=== PATIENT | male | born 1955 | race Caucasian/White ===

== ENCOUNTER 2021-03-24 12:19 | Day surgery (SDC) | payer MEDICARE, BC, SELFPAY ==
[2021-03-14 11:21] VITALS: BMI 29.2
[2021-03-17 13:14] VITALS: BMI 29.1
[2021-03-24] VITALS (8 sets, daily range): BP systolic 91–119; BP diastolic 57–85; PULSE 57–75; RESP 16–18; TEMP 36.4–36.9; O2SAT 91–95; BMI 29.1; BMI 29.9
--- NOTE | 2021-03-24 07:00 | HP_ITS ---
Intake Vital Signs 03/17/21 Height 6 ft 03/17/21 Weight: 215 lb 03/17/21 BMI 29.1 03/17/21 BP 129/82 H 03/17/21 Blood Pressure Location Rt brachial 03/17/21 Position Sitting 03/17/21 Respiration 18 03/17/21 Pulse Oximetry (%) 92 03/17/21 Oxygen Delivery Method room air Intake Visit Reasons: PORT PLACEMENT Chief Complaint: port Litigation Coordinator Required: No Is patient in pain?: No Allergies No Known Allergies Allergy (Verified 03/17/21 13:08) Medications Lisinopril [Zestril] 10 mg PO DAILY 03/13/21 [History Confirmed 03/17/21] Ampicillin Trihydrate 250 mg PO BID 03/14/21 [History Confirmed 03/17/21] PFSH Medical History Acute respiratory failure with hypoxia (Acute) Former smoker (Acute) Hemoptysis (Acute) Lung mass (Acute) Pneumonia (Acute) Shortness of breath (Acute) Hypertension (Chronic) Surgical History S/P bronchoscopy (Acute) Family History Father Alzheimers disease Mother Skin cancer Social History (Updated 03/17/21 @ 14:[address] Seng De Los Santos MD) Smoking Status: Heavy Smoker (>10/day) HPI HPI HPI: SHASHA RODRIGUEZ is a 65 M who presents to the office today for HPI HPI Surgical H&P: Yes HPI: SHASHA RODRIGUEZ is a 65 M who presents to the office today for port placement. The patient has lung cancer of the left lung and requires chemotherapy and port placement for access. ROS General General: No weight change or fatigue Cardio Cardiovascular: Yes high blood pressure; no murmur, pacemaker, heart disease, atrial fibrillation, heart attack, heart stent, palpitations, shortness of breat with exertion or chest pain Psych Psychiatric: No depression or anxiety Resp Respiratory: Yes shortness of breath, No sleep apnea, Yes cough, No COPD, No asthma, No emphysema, No wheezing Gastro Gastrointestinal: No abdominal pain, No nausea or vomiting, No diarrhea, No constipation, No blood in stool, No acid reflux, No hemorrhoids, No ulcers, No gallbladder problem, No black,tarry stools Jero Hematologic: No blood thinners Exam Const General: cooperative Orientation: alert, oriented x3 Resp Effort & Inspection: normal respiratory effort Auscultation: breath sounds absent on th left Cardio Rate: regular rate Rhythm: regular rhythm Heart Sounds: no murmurs GI Inspection: non-distended Palpation: soft, nontender Assessment & Plan Problems 1. NSCLC of left lung C34.92 2. Encounter for insertion of venous access port Z45.2 Plan I discussed right chest port placement with the patient in detail. I discussed the procedure as well as the risks including but not limited to bleeding, infection, pneumothorax, line infection or DVT. The patient understands the risks and is willing to have port placed in the operating room. Seng De Los Santos MD Pager: [facility] [address] [place] [address], [address] [place] [address] Office: Coding Level of Care Code Off vis,new,level 3 Diagnoses NSCLC of left lung C34.92 Encounter for insertion of venous access port Z45.2 I have re-examined the patient. There are no clinical changes since date of exam.
[2021-03-24] MEDS: Lactated Ringers 1,000 ML 100 ML IV (13:09)
[2021-03-24] MEDS: Cefazolin 2 GM in 0.9% Normal Saline 100 ML IV (13:30)
[2021-03-24] MEDS: Bupiv/Epi 0.25% 30 ML Vial (13:46)
--- NOTE | 2021-03-24 14:00 | RAD_ITS ---
STUDY: X-RAY CHEST REASON FOR EXAM: Male, 65 years old. Line placement -- in pacu TECHNIQUE: Single AP portable view of the chest. COMPARISON: Comparison is made with prior study dated 03/09/2021. FINDINGS: A right-sided Port-A-Cath has been placed. The tip is at the junction of the superior vena cava and right atrium. Hyper expansion of the right hemithorax. Complete collapse of the left hemithorax suggestive of a large left pleural effusion with left lung volume loss. RAD/CXR for Line Placement IMPRESSION: The tip of the right yogesh catheter is at the junction of the superior vena cava and right atrium. Complete opacification of the left hemithorax with the volume loss and hyperexpansion of the right hemithorax. Electronically Signed: Zach Lewis MD at 14:40 EDT , Service support ,
--- NOTE | 2021-03-24 14:09 | OP.PCM_ITS ---
Problem List (1) Encounter for adjustment and management of vascular access device Status: Resolved (2) NSCLC of left lung Status: Acute Report of Operation Date of Procedure: 03/24/21 Pre-Operative Diagnosis: Lung cancer need for vascular access port Post-Operative Diagnosis: Same Surgery/Procedure Performed:: Ultrasound and fluoroscopy guided right chest port placement utilizing right IJ Description of Procedure: After obtaining informed consent patient was brought back to the operating room MAC anesthesia was induced and the right chest and neck were prepped in normal sterile fashion. Ultrasound was used to evaluate both IJs and the right IJ was selected. Next, using a needle, the right IJ was accessed and a guidewire was passed on into the superior vena cava under fluoroscopy guidance. A small incision was made over the puncture site and the dilator introducer was placed over the guidewire. Next this was capped and the pocket was made for the port. 1% lidocaine with epinephrine was injected in the proposed port site. An incision was made with scalpel. Electrocautery was used to make a pocket under the skin and subcutaneous tissue. Hemostasis was obtained. Next, the catheter was tunneled up to the neck incision site and placed through the introducer. The peel-away introducer was removed and the position of the catheter was confirmed on fluoroscopy. Next, the catheter was trimmed and attached to the port with the locking device. Interrupted 2-0 Vicryl sutures were used to anchor the port to the chest wall and then the port was placed inside the pocket. The pocket was then flushed with saline and the port irrigated with saline. There was good blood return and the port flushed easily. Next, heparin was injected into the port. The skin was closed with subcutaneous interrupted 3-0 Vicryl sutures. A single 3-0 Vicryl sutures placed under the skin at the neck incision site. Steri-Strips were placed as well as op sites. Patient tolerated procedure well, was taken to PACU in stable condition. Chest x-ray will be obtained. Grafts/Implants Used: 8 [place] Power[employer] - Admit VTE Documentation VTE Mechan Device Prophylaxis: SCD's
--- NOTE | 2021-03-24 14:11 | DCINST_ITS ---
Discharge Diet: No Restrictions - Pain medication may cause nausea. You should typically eat light foods as you take your pain medication. Discharge Activity: Return to Normal Activity, May Shower - with your bandage in place in 1-2 days after surgery. DO NOT SHOWER WHEN YOUR PORT IS ACCESSED. Call your doctor if your incision/area has: Continuous Slow Oozing, Sudden Increased Bleeding, Increased Pain/ Swelling, Increased Redness Call your doctor if you observe: Fever of 101 or Higher Remove Dressing in (days):: 3 - When you remove the bandage, leave the steri- strips intact until they fall off. Allergies/Adverse Reactions: Allergies No Known Allergies Allergy (Verified 03/24/21 13:01) Medications to take at Discharge Lisinopril [Zestril] 10 mg PO DAILY 03/13/21 Acapella See Rx Instructions .ROUTE .MEDSUPPLY #1 each 03/24/21 guaifenesin 1,200 mg tablet, extended release 12 hr 1,200 mg PO Q12H #60 tablet 03/24/21 tiotropium 2.5 mcg-olodaterol 2.5 mcg/actuation mist for inhalation 2 puff IN HALATION DAILY #4 gm 03/24/21 Orders to be completed after discharge: COVID 19 AG RAPID (RN COLLECT) Time Frame: 03/24/21, Facility: [facility], Location: Laboratory Primary Care Physician: Des Che MD [Primary Care Provider] - Test Results: Test results from this visit will be discussed in further detail at your follow- up appointment, if applicable. Please Follow Up With: Seng De Los Santos MD When: Follow-up as needed. [phone]
== END 2021-03-24 15:03 | disposition home or self-care (01) ==
LOC: SDC 12:20 → AC 12:21
PROVIDERS: PCP Family Medicine; Referring Provider Surgery; Visit Provider Surgery
PROC: (CPT 36561; principal; 2021-03-24 12:50)
DX: Z45.2 Encounter for adjustment and management of vascular access device (principal); C34.92 Malignant neoplasm of unspecified part of left bronchus or lung; I10 Essential (primary) hypertension; Z79.899 Other long term (current) drug therapy; Z87.891 Personal history of nicotine dependence
CPT/HCPCS: 00532; 36561; 71045; 77001; 87426; 94667; J7120; C1788

== ENCOUNTER → 2021-06-19 07:34 | Outpatient (CLI) | payer MEDICARE, BC, SELFPAY ==
[2021-03-14 11:21] VITALS: BMI 29.2
[2021-05-17 08:32] VITALS: BMI 29.4
--- NOTE | 2021-06-19 07:40 | CT_ITS ---
STUDY: CT CHEST T ABDOMEN WITH CONTRAST REASON FOR EXAM: Male, 65 years old. POST CHEMO-LUNG CA RADIATION DOSAGE (If Supplied By Facility): CTDIvol = ( 16.02 ) mGy, DLP = ( 1351.02 ) mGycm TECHNIQUE: Transaxial imaging was performed following intravenous administration of IV 100mL Isovue-300. Multiplanar coronal and sagittal images were reformatted. Individualized dose optimization techniques were used for this CT. COMPARISON: Comparison is made with prior examination dated 03/08/2021. FINDINGS: CHEST A right-sided portacatheter is seen with the tip in the superior vena cava. Mild degree of persistent increased markings at the lung bases suggestive of a mild scarring more prominent at the left lung base with evidence of bronchiectasis with small left pleural effusion and compressive atelectasis. This has improved as compared to prior study. There are calcifications of the coronary arteries. Small residual soft tissue density in the subcarinal space suggestive of adenopathy. Small mediastinal adenopathy is also present. No significant left hilar lymphadenopathy is seen. Normal unenhanced pulmonary arteries. Mild degree of atherosclerotic calcific plaques at the level of the aortic arch. There are multi-level degenerative changes of the thoracic spine. There is no demonstrated abnormality of the visualized upper abdomen. ABDOMEN Normal liver. Normal gallbladder and extrahepatic biliary system. Normal spleen. Normal pancreas. Normal bilateral adrenal glands. Normal right kidney. Normal left kidney. Normal visualized stomach. Normal small intestine. Normal colon. The appendix is visualized and appears normal. There is scattered atherosclerotic calcification of the abdominal aorta, without a demonstrated aneurysm. Normal inferior vena cava. There is borderline retroperitoneal lymphadenopathy with enlarged nodes no greater than 10mm in the short axis diameter. Normal abdominal wall. There are diffuse degenerative changes of the visualized lumbar spine. CT/CT Chest AND Abd W/ Contrast IMPRESSION: Mild residual enlargement of the subcarinal lymph nodes. Small left pleural effusion with left basilar bronchiectasis and compressive atelectasis. Electronically Signed: Zach Lewis MD at 12:48 EDT , Service support ,
[2021-06-19] MEDS: 0.9% Saline Lock 10 ML Syringe IV (08:05)
[2021-06-19 08:25] LABS: Absolute Lymphocyte Count 0.71 X10^3/uL (0.83-4.51); Absolute Neutrophil Count 4.8 X10^3/uL (2.0-7.7); Basophil# 0.03 X10^3/uL; Basophil% 0.4 % (0-1); Eosinophil# 0.36 X10^3/uL; Eosinophils% 5.3 % (0-5); Lymphocyte # 0.71 X10^3/ul (0.83-4.51); Lymphocyte % 10.5 % (19-41); Mean Corp Hgb Conc 33.3 g/dL (32-36); Mean Corpuscular Hgb 30.3 pg (27.0-32.0); Mean Corpuscular Volume 90.9 fL (80-94); Mean Platelet Vol. 8.9 fl (6.2-12.0); Monocyte# 0.82 X10^3/uL; Monocyte% 12.1 % (0-10); NRBC Flagged by Analyzer 0 % (0-5); Neutrophil # 4.81 X10^3/uL (2.7-7.7); Neutrophil % 71.1 % (47-70); Platelet Count 255 K/mm3 (150-450); RBC Distribution Width CV 14.7 % (11.6-14.6); RBC Distribution Width SD 49.5 fl (35.1-43.9); Red Blood Count 3.96 M/mm3 (4.6-6.2); White Blood Count 6.8 K/mm3 (4.4-11.0)
[2021-06-19 08:42] LABS: AST(SGOT) 17 U/L (15-37); Alanine Aminotransfer ALT/SGPT 24 U/L (16-61); Albumin, Serum 3.1 g/dL (3.2-5.0); Alkaline Phosphatase 74 U/L (45-117); Anion Gap 6 (5-15); BUN 12 mg/dL (7-18); BUN/Creat Ratio 16.2 RATIO (10-20); Calcium,Total 8.3 mg/dL (8.5-10.1); Chloride 104 mmol/L (98-107); Creatinine, Serum 0.74 mg/dL (0.70-1.30); EST Glomerular Filtration Rate 113 mL/min (>60); Est Glom Filt Rate - Afr Amer 136 mL/min (>60); Globulin 3.2 g/dL (2.2-4.2); Glucose 92 mg/dL (74-106); LDH 176 U/L (87-241); Potassium 3.8 mmol/L (3.5-5.1); Protein, Total 6.3 g/dL (6.4-8.2); Sodium Level 138 mmol/L (136-145)
== END ==
PROVIDERS: PCP Family Medicine; Referring Provider Internal Medicine Medical Oncology; Visit Provider Internal Medicine Medical Oncology
DX: C34.02 Malignant neoplasm of left main bronchus (principal); J91.0 Malignant pleural effusion; J47.9 Bronchiectasis, uncomplicated; I10 Essential (primary) hypertension
CPT/HCPCS: 71260; 74160; 80053; 83615; 85025; Q9967; A4216

== ENCOUNTER → 2021-06-20 06:45 | Outpatient (CLI) | payer MEDICARE, BC, SELFPAY ==
[2021-03-14 11:21] VITALS: BMI 29.2
[2021-05-17 08:32] VITALS: BMI 29.4
--- NOTE | 2021-06-20 09:39 | PFTCOMP_ITS ---
COMPLETE PULMONARY FUNCTION TEST INTERPRETATION Brief HPI: Patient is a 65 year old male, currently under the care of myself, who presents to [facility] for complete pulmonary function tests secondary to diagnosis of lung mass. Respiratory therapist reports good effort and reproducible results. Interpretation: Forced expiration spirometry shows no large airways obstructive ventilatory defect with an FEV1 of 80% predicted. There is no significant bronchodilator response by strict ATS criteria. Spirograms are of good quality and plateau slowly, indicating slowly emptying areas of the lungs. The respiratory flow volume loop shows flattening of the expiratory limb suggestive of a variable intrathoracic airway obstruction. Lung volumes by body plethysmography show a normal total lung capacity at 7.03 L, 103% predicted. All other lung volumes are within normal limits. Diffusion capacity by carbon monoxide is decreased at 67% predicted. The airway resistance is increased. No previous pulmonary function tests were available for review. Impression: Isolated reduction in diffusing capacity with flattening of the expiratory limb suggestive of a variable intrathoracic airway obstruction.
== END ==
PROVIDERS: PCP Family Medicine; Referring Provider Internal Medicine Critical Care Medicine; Visit Provider Internal Medicine Critical Care Medicine
DX: R91.8 Other nonspecific abnormal finding of lung field (principal)
CPT/HCPCS: 94060; 94726; 94729

== ENCOUNTER 2021-09-18 15:55 | Emergency (ER) | payer MEDICARE, BC, SELFPAY ==
[2021-03-14 11:21] VITALS: BMI 29.2
[2021-09-18] VITALS (7 sets, daily range): BP systolic 108–130; BP diastolic 79–94; PULSE 99–104; RESP 20–26; TEMP 37–37.6; O2SAT 88–97; BMI 29.5
--- NOTE | 2021-09-18 16:21 | CT_ITS ---
STUDY: CTA CHEST REASON FOR EXAM: Male, 65 years old. Hypoxia RADIATION DOSAGE (If Supplied By Facility): CTDIvol = ( 13.03 ) mGy, DLP = ( 481.70 ) mGycm TECHNIQUE: The examination was performed with the intravenous administration of IV 100mL Isovue-370. Post-processing of the angiographic images was performed, with multiplanar reformation and 3D reconstruction. Individualized dose optimization techniques were used for this CT. COMPARISON: None. FINDINGS: Thyroid gland is unremarkable. There is limited enhancement of the main pulmonary artery and right and left pulmonary arteries. There is limited enhancement of the bilateral peripheral pulmonary arteries. There is no demonstrated pulmonary embolism. Normal thoracic aorta and visualized great vessels. There is no demonstrated aortic dissection. Normal heart and pericardium. Scattered subcentimeter axillary and mediastinal lymph nodes. There is peribronchial thickening. The lungs are well expanded. Patchy interstitial and airspace opacifications in both lung [place] without effusions. This pattern of opacification is suspicious for and consistent with Covid pneumonia. Normal pleura. Normal chest wall structures. There are degenerative changes of thoracic spine. Normal visualized upper abdomen. CT/CTA Chest W/WO Contrast IMPRESSION: No demonstrated PE, or thoracic aortic aneurysm or dissection. However, the contrast bolus within the pulmonary arteries is not optimal. Patchy interstitial and airspace opacifications probably in the periphery of both lung [place] without effusions. This pattern of opacification is suspicious for Covid pneumonia. No suspicious adenopathy Degenerative bony changes Electronically Signed: Kalen Hernandez MD at 18:32 EDT , Service support ,
--- NOTE | 2021-09-18 16:23 | EKG12_ITS ---
Test Reason : SOB Blood Pressure : / mmHG Vent. Rate : 094 BPM Atrial Rate : 094 BPM P-R Int : 170 ms QRS Dur : 078 ms QT Int : 346 ms P-R-T Axes : 045 -14 023 degrees QTc Int : 432 ms Normal sinus rhythm Normal ECG Confirmed by KIMMY JUNE MD ([id number]), medical editor BRYON ORTIZ ([id number]) on 09/20/2021 9:29:11 AM Referred By: IAN Confirmed By:KIMMY JUNE MD
--- NOTE | 2021-09-18 16:26 | NURSING ---
NO OLD EKGS
--- NOTE | 2021-09-18 16:53 | CPS ---
Gave 2 puffs
[2021-09-18 16:56] LABS: Absolute Lymphocyte Count 0.35 X10^3/uL (0.83-4.51); Absolute Neutrophil Count 4.4 X10^3/uL (2.0-7.7); Basophil# 0.01 X10^3/uL; Basophil% 0.2 % (0-1); Hematocrit 44.3 % (40-54); Hemoglobin 15.3 g/dL (13.0-16.5); Lymphocyte # 0.35 X10^3/ul (0.83-4.51); Mean Corp Hgb Conc 34.5 g/dL (32-36); Mean Corpuscular Hgb 29.1 pg (27.0-32.0); Mean Corpuscular Volume 84.2 fL (80-94); Monocyte# 0.27 X10^3/uL; Monocyte% 5.4 % (0-10); NRBC Flagged by Analyzer 0 % (0-5); Neutrophil # 4.35 X10^3/uL (2.7-7.7); Neutrophil % 86.8 % (47-70); POSITIVE DIFFERENTIAL YES; Platelet Count 160 K/mm3 (150-450); RBC Distribution Width CV 13.8 % (11.6-14.6); RBC Distribution Width SD 42.6 fl (35.1-43.9); Red Blood Count 5.26 M/mm3 (4.6-6.2)
[2021-09-18] MEDS: dexAMETHasone 10 MG/ML Vial IV (16:57)
[2021-09-18] MEDS: 0.9% Normal Saline 1,000 ML 999 ML IV (16:57)
[2021-09-18 16:58] LABS: Differential Indicated SCAN CRITERIA MET
[2021-09-18 17:04] LABS: International Normalized Ratio 1.1; Prothrombin Time (Protime)PT. 13.2 SECONDS (11.7-14.9)
[2021-09-18 17:05] LABS: Partial Thromboplast Time 39.9 Seconds (24.1-36.2)
[2021-09-18 17:25] LABS: Anion Gap 8 (5-15); BUN 14 mg/dL (7-18); BUN/Creat Ratio 14.2 RATIO (10-20); Calcium,Total 8.7 mg/dL (8.5-10.1); Chloride 98 mmol/L (98-107); Creatinine, Serum 0.99 mg/dL (0.70-1.30); EST Glomerular Filtration Rate 81 mL/min (>60); Est Glom Filt Rate - Afr Amer 98 mL/min (>60); Estimated Creatinine Clearance 79.23 ml/min; Glucose 120 mg/dL (74-106); Magnesium 1.9 mg/dL (1.6-2.6); Potassium 4.2 mmol/L (3.5-5.1); Sodium Level 131 mmol/L (136-145); Troponin-I HS 12 pg/mL (3.0-78.0)
[2021-09-18 17:27] LABS: Differential Comment SCANNED
--- NOTE | 2021-09-18 17:28 | EDS_ITS ---
HPI History of Present Illness Chief Complaint: Shortness of Breath Narrative Narrative: Patient is a 65-year-old male with past medical history of lung cancer. He states despite this he has no need for supplemental oxygen. He reports over the past 5 to 7 days he has been having congestion cough and fatigue. He states that he put a pulse ox on at home today and it was reading in the mid 80s and with this abnormal value as well as his feeling of shortness of breath comes to the hospital for evaluation. Patient does state he is vaccinated against Covid and he denies any known sick contacts [facility] Medical History Acute respiratory failure with hypoxia Contact with and (suspected) exposure to other viral communicable diseases Dyspnea Encounter for education Former smoker Hemoptysis Hypertension Lung mass NSCLC of left lung Odynophagia Pneumonia Shortness of breath Home Medications lisinopril 10 mg PO DAILY 03/13/21 [History Last Taken 03/23/21 19:00] Acapella #1 each 03/24/21 [Rx Last Taken Unknown] guaifenesin 1,200 mg tablet, extended release 12 hr 1,200 mg PO Q12H #60 tablet 03/24/21 [Rx Last Taken Unknown] tiotropium 2.5 mcg-olodaterol 2.5 mcg/actuation mist for inhalation 2 inh INHALATION DAILY #4 g 06/22/21 [Rx Last Taken Unknown] albuterol sulfate 90 mcg/actuation aerosol inhaler 1 - 2 puff INHALATION Q6H PRN #8.5 g 09/18/21 [Rx Last Taken Unknown] albuterol sulfate [Ventolin HFA] 1 - 2 puff INHALATION Q4H PRN PRN #1 inh 09/18/21 [Rx Last Taken Unknown] azithromycin 250 mg tablet See Rx Instructions PO .COMPLEX #6 tab 09/18/21 [Rx Last Taken Unknown] dexamethasone 6 mg tablet 6 mg PO DAILY #10 tab 09/18/21 [Rx Last Taken Unknown] dexamethasone [Decadron] 6 mg PO DAILY #10 tab 09/18/21 [Rx Last Taken Unknown] Allergy/AdvReac Type Severity Reaction Status Date / Time No Known Allergies Allergy Verified 09/18/21 16:00 Family History Father Alzheimers disease Mother Skin cancer Surgical History S/P bronchoscopy Social History Smoking Status: Former smoker pack-years: 25 ROS ROS ED Constitutional Constitutional ED: Reports chills, fever(s) and subjective ENT ENT ED: Reports rhinorrhea; Denies sore throat Cardiovascular Cardiovascular: Denies chest pain Respiratory/Chest Respiratory/Chest: Reports cough and dyspnea Gastrointestinal Gastrointestinal: Reports diarrhea and nausea; Denies abdominal pain or vomiting Genitourinary Genitourinary ED: Denies dysuria Musculoskeletal Musculoskeletal: Reports myalgias Integumentary Denies rash Neurologic Neurologic: Denies headache(s) Hematologic/Lymphatic Hematologic/Lymphatic: Denies easy bleeding or easy bruising EXAM Physical Exam Const Vital Signs: 09/18/21 15:57 09/18/21 16:11 09/18/21 16:59 Temperature 98.6 F Temperature Source Temporal Pulse Rate 104 H 102 H Respiratory Rate 22 H 23 H Respiratory Effort Short of Breath Respiratory Depth Shallow Respiratory Pattern Tachypnea Blood Pressure 130/86 H 130/79 H Blood Pressure Mean 100 96 Pulse Ox 97 94 Pulse Ox [AMBULATING on Room Air] Pulse Ox [AMBULATING with Oxygen #1] Pulse Ox [At REST on Room Air] Pulse Ox [At REST with Oxygen] Oxygen Delivery Method Room Air Room Air Room Air Oxygen Flow Rate (L/min) [AMBULATING on Room Air] Oxygen Flow Rate (L/min) [AMBULATING with Oxygen #1] Oxygen Flow Rate (L/min) [At REST on Room Air] Oxygen Flow Rate (L/min) [At REST with Oxygen] 09/18/21 18:16 09/18/21 18:24 09/18/21 19:03 Temperature 99.6 F H Temperature Source Temporal Pulse Rate 103 H 103 H Respiratory Rate 26 H 20 H Respiratory Effort Respiratory Depth Respiratory Pattern Blood Pressure 108/94 H 108/94 H Blood Pressure Mean 98 98 Pulse Ox 92 93 Pulse Ox [AMBULATING on Room Air] 88 Pulse Ox [AMBULATING with Oxygen #1] 92 Pulse Ox [At REST on Room Air] 91 Pulse Ox [At REST with Oxygen] 94 Oxygen Delivery Method Room Air Room Air Oxygen Flow Rate (L/min) [AMBULATING on Room Air] 0 Oxygen Flow Rate (L/min) [AMBULATING with Oxygen #1] 2 Oxygen Flow Rate (L/min) [At REST on Room Air] 0 Oxygen Flow Rate (L/min) [At REST with Oxygen] 2 Positive well nourished and well developed General Appearance ED: well developed HEENT Reports dry mucous membranes HEENT Narrative: No tongue or lip swelling no oral lesions no airway edema or compromise Mouth ED: Yes dry mucous membranes Mouth: dry mucous membranes Eyes PERRL and EOMs intact bilaterally Neck supple and no JVD Neck Narrative: Positive anterior cervical lymphadenopathy noted Chest Wall palpation of chest normal Resp Resp Narrative: Patient is in mild respiratory distress with tachypnea. Breath sounds are diminished throughout with faint wheeze and rhonchi in the bilateral bases Cardio regular rhythm Rate: other Other Details: Slightly tachycardic rate with regular rhythm GI non-tender and non-distended GI Narrative: No voluntary guarding or rigidity no pulsatile mass Auscultation: normoactive bowel sounds Palpation: soft Extremity normal to inspection Extremity Narrative: No asymmetric edema no pitting edema negative Homans' sign bilaterally Neuro oriented x3 and CN's II-XII intact bilaterally Sensorium / Orientation: alert Motor Exam: strength 5/5 throughout Psych mental status grossly normal Skin no rashes or lesions noted MDM MDM MDM Narrative Medical decision making narrative: Patient presented to the ER just slightly tachycardic with a room air pulse ox of 91 to 93% and mild increased work of breathing. His exam is concerning for Covid and Covid pneumonia so basic work- up with CT scan was ordered. Labs reveal no clinically significant findings other than his rapid Covid test was positive. His CT revealed no PE but did show changes consistent with Covid pneumonia. On reevaluation after albuterol inhaler and Decadron patient reports feeling better and his pulse ox is 91 to 93% on room air. He was ambulated and pulse ox dropped to 89%. At this time he is not qualifying for supplemental oxygen but he does qualify for monoclonal antibody. Also as he is not requiring supplemental oxygen and remains in no acute distress he can be discharged and be prescribed an albuterol inhaler Decadron and the monoclonal antibodies to help control his symptoms Lab Data Attestation: I reviewed the patient's lab results. Labs: Laboratory Results - last 24 hr 09/18/21 09/18/21 09/18/21 16:40 16:40 16:40 WBC 5.0 RBC 5.26 Hgb 15.3 Hct 44.3 MCV 84.2 MCH 29.1 MCHC 34.5 RDW Std Deviation 42.6 RDW Coeff of Samantha 13.8 Plt Count 160 MPV 9.0 Immature Gran % (Auto) 0.600 Neut % (Auto) 86.8 H Lymph % (Auto) 7.0 L Chambers % (Auto) 5.4 Eos % (Auto) 0.0 Baso % (Auto) 0.2 Absolute Neuts (auto) 4.4 Absolute Lymphs (auto) 0.35 L Nucleated RBC % 0 Differential Comment SCANNED PT 13.2 INR 1.1 APTT 39.9 H Sodium 131 L Potassium 4.2 Chloride 98 Carbon Dioxide 25.0 Anion Gap 8 BUN 14 Creatinine 0.99 Estim Creat Clear Calc 79.23 Est GFR (MDRD) Af Amer 98 Est GFR (MDRD) Non-Af 81 BUN/Creatinine Ratio 14.2 Glucose 120 H Calcium 8.7 Magnesium 1.9 Troponin I High Sens 12 B-Natriuretic Peptide 09/18/21 16:40 WBC RBC Hgb Hct MCV MCH MCHC RDW Std Deviation RDW Coeff of Samantha Plt Count MPV Immature Gran % (Auto) Neut % (Auto) Lymph % (Auto) Chambers % (Auto) Eos % (Auto) Baso % (Auto) Absolute Neuts (auto) Absolute Lymphs (auto) Nucleated RBC % Differential Comment PT INR APTT Sodium Potassium Chloride Carbon Dioxide Anion Gap BUN Creatinine Estim Creat Clear Calc Est GFR (MDRD) Af Amer Est GFR (MDRD) Non-Af BUN/Creatinine Ratio Glucose Calcium Magnesium Troponin I High Sens B-Natriuretic Peptide 17.0 Radiography Diagnostic Testing: Clinical Impression(s) from Imaging Studies Chest CTA 09/18/21 16:21 IMPRESSION: No demonstrated PE, or thoracic aortic aneurysm or dissection. However, the contrast bolus within the pulmonary arteries is not optimal. Patchy interstitial and airspace opacifications probably in the periphery of both lung [place] without effusions. This pattern of opacification is suspicious for Covid pneumonia. No suspicious adenopathy Degenerative bony changes Electronically Signed: Kalen Hernandez MD at 18:32 EDT , Service support , Discharge Plan Triage Chief Complaint: Shortness of Breath ED Provider: Martinez Baltazar Dx/Rx/DC Orders Clinical Impression: Pneumonia due to 2019 novel coronavirus Instructions: Coronavirus Disease 2019 (COVID-19): Caring for Yourself or Others Prescriptions: New dexamethasone [Decadron] 6 mg tablet 6 mg PO DAILY Qty: 10 RF: 0 albuterol sulfate [Ventolin HFA] 90 mcg/actuation HFA aerosol inhaler 1 - 2 puff inhalation Q4H PRN PRN (Reason: Wheezing) Qty: 1 RF: 0 No Action Mucinex 1,200 mg tablet extended release 12hr 1,200 mg PO Q12H Qty: 60 RF: 11 (DME) Acapella See Rx Instructions .Route .MEDSUPPLY Qty: 1 RF: 0 Stiolto Respimat 2.5-2.5 mcg/actuation mist 2 inh INHALATION DAILY Qty: 4 RF: 3 azithromycin 250 mg tablet See Rx Instructions PO .COMPLEX Qty: 6 RF: 0 dexamethasone [Decadron] 6 mg tablet 6 mg PO DAILY Qty: 10 RF: 0 albuterol sulfate [ProAir HFA] 90 mcg/actuation HFA aerosol inhaler 1 - 2 puff inhalation Q6H PRN (Reason: shortness of breath or wheezing) Qty: 8.5 RF: 1 lisinopril 20 MG tablet 10 mg PO DAILY RF: 0 Other Ambulatory Orders: COVID Outpatient Monoclonal Antibody Referral (Routine) Timeframe: 1 Day Facility: [facility] - Location: [facility] Ordered By: Dr. Martinez Baltazar Primary Care Provider: Dse Che Referrals: Des Che MD [Primary Care Provider] - Activity Restrictions/Additional Instructions: Please return to the hospital as directed for your monoclonal antibody infusion Disposition Disposition: Home, Self Care
== END 2021-09-18 20:38 | disposition home or self-care (01) ==
PROVIDERS: Emergency Provider Emergency Medicine; PCP Family Medicine
DX: U07.1 COVID-19 (principal); J12.82 Pneumonia due to coronavirus disease 2019; I10 Essential (primary) hypertension; Z87.891 Personal history of nicotine dependence; Z79.899 Other long term (current) drug therapy
CPT/HCPCS: 71275; 80048; 83735; 83880; 84484; 85025; 85610; 85730; 87426; 87635; 93005; 94640; 96361; 96374; 99282; J7030; Q9967; U0005; A4216; U0003

== ENCOUNTER → 2021-09-18 | Outpatient (CLI) | payer MEDICARE, BC, SELFPAY ==
[2021-03-14 11:21] VITALS: BMI 29.2
== END | disposition home or self-care (01) ==
LOC: LABSPEC 12:58
PROVIDERS: PCP Family Medicine; Referring Provider Nurse Practitioner Family; Visit Provider Nurse Practitioner Family
DX: U07.1 COVID-19 (principal)
CPT/HCPCS: 87635; U0005; U0003

== ENCOUNTER 2021-09-19 15:56 | Outpatient (CLI) | payer MEDICARE, BC, SELFPAY ==
[2021-03-14 11:21] VITALS: BMI 29.2
[2021-09-19 16:15] VITALS: BP 126/63; PULSE 96; RESP 21; TEMP 37.1; O2SAT 95; BMI 29.5
[2021-09-19] MEDS: 0.9% Saline Lock 10 ML Syringe IV (16:21)
[2021-09-19 16:59] VITALS: BP 124/76; PULSE 91; RESP 16; TEMP 37.4; O2SAT 98
[2021-09-19 17:50] VITALS: BP 108/61; PULSE 85; RESP 16; TEMP 37.2; O2SAT 100
== END 2021-09-19 18:08 | disposition home or self-care (01) ==
LOC: MS3OUT 15:56 → MS3 15:57
PROVIDERS: PCP Family Medicine; Referring Provider Nurse Practitioner Adult Health; Visit Provider Nurse Practitioner Adult Health
DX: U07.1 COVID-19 (principal)
CPT/HCPCS: J7050; M0243; A4216; Q0244

== ENCOUNTER 2021-10-30 09:40 | Emergency (ER) | payer MEDICARE, BC, SELFPAY ==
[2021-03-14 11:21] VITALS: BMI 29.2
[2021-10-30 09:41] VITALS: BP 147/83; PULSE 83; RESP 17; TEMP 36.4; O2SAT 97; BMI 30.7
--- NOTE | 2021-10-30 10:22 | CT_ITS ---
EXAM: CT CERVICAL SPINE WITHOUT INTRAVENOUS CONTRAST CLINICAL INDICATION: neck pain TECHNIQUE: Helically acquired images were obtained of the cervical spine without intravenous contrast. 2D reformatted images were reviewed. This CT exam was performed using one or more of the following dose reduction techniques: automated exposure control, adjustment of the mA and/or kV according to patient size, and/or use of iterative reconstruction technique. This report was created using [employer] report generation technology. COMPARISON: None. FINDINGS: VERTEBRAE: Anterior spondylosis at multiple cervical levels. No cervical spine fracture or destructive bony process. No traumatic subluxation. Normal craniocervical junction and cervicothoracic junction. 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 Superimposed canal narrowing due to posterior disc osteophyte complexes at C5-C6 and C6-C7. Right C5-C6 and left C6-C7 foraminal narrowing due to uncovertebral hypertrophy. SOFT TISSUES: Unremarkable. No prevertebral soft tissue swelling. VASCULATURE: Atherosclerosis of the carotid arteries. LYMPH NODES: Unremarkable. No cervical adenopathy. LUNG APICES: Interstitial thickening and groundglass opacities of the bilateral upper lobes could represent fluid overload. CT/Spine Cervical without Contras IMPRESSION: 1. No cervical spine fracture or traumatic subluxation. 2. Interstitial thickening and groundglass opacities of the bilateral upper lobes could represent fluid overload. Recommend correlating with chest x-ray. 3. Degenerative changes, as above. Electronically Signed: Dank Smith MD (Brooks) at 12:49 EST , Service support ,
--- NOTE | 2021-10-30 10:22 | CT_ITS ---
STUDY: CT BRAIN WITH AND WITHOUT CONTRAST REASON FOR EXAM: Male, 66 years old. headache RADIATION DOSAGE (If Supplied By Facility): CTDIvol = ( 38.11 ) mGy, DLP = ( ) mGycm TECHNIQUE: Transaxial CT imaging of the brain was performed pre and post contrast administration. The examination was performed with intravenous administration of 50 CC ISOVUE 300. Individualized dose optimization techniques were used for this CT. COMPARISON: None. FINDINGS: Normal soft tissue structures. Normal calvarium. Normal size ventricles and extra-axial spaces for the patient''s age. Normal white matter tracts of the cerebral hemispheres. Normal basal ganglia and thalami. Normal brainstem. Normal cerebellum. There is no intracranial hemorrhage. There are no findings of an acute ischemic infarction. No abnormal contrast enhancement. Normal visualized paranasal sinuses. CT/Brain/Head W/WO Contrast IMPRESSION: No acute intracranial hemorrhage or mass effect. Electronically Signed: Dank Smith MD (Brooks) at 12:47 EST , Service support ,
--- NOTE | 2021-10-30 10:26 | EX.ED.DYSGE1 ---
HPI History of Present Illness Chief Complaint: Other, Pain/Inj Informant: patient Onset/Context/Timing Onset: Weeks Current Severity: Moderate Maximum Severity: Moderate Narrative Narrative: Patient presents with 3 weeks of bilateral ear pain, worse on the right. Patient states 6 weeks ago he had Covid. Symptoms resolved after 2 weeks. 3 weeks ago he developed ear pain and was seen by his primary care physician. His right ear was irrigated and was told to try Flonase. A week later he went [facility] the [facility] and was diagnosed with an ear infection and placed on amoxicillin. 1 week ago he saw his oncologist who referred him to ENT. He was seen by ENT that afternoon. There is no evidence of ear infection. Oncology still placed him on an antibiotic. Patient presents with continued bilateral ear pain. He states he is taking Tylenol every 4 hours to help control pain. [facility] Medical History Acute respiratory failure with hypoxia Contact with and (suspected) exposure to other viral communicable diseases Dyspnea Ear pain, right Encounter for education Former smoker Hemoptysis Hypertension Lung mass NSCLC of left lung Odynophagia Pneumonia Shortness of breath Home Medications lisinopril 10 mg PO DAILY 03/13/21 [History Last Taken 03/23/21 19:00] Acapella #1 each 03/24/21 [Rx Last Taken Unknown] albuterol sulfate 90 mcg/actuation aerosol inhaler 1 - 2 puff INHALATION Q6H PRN #8.5 g 09/18/21 [Rx Last Taken Unknown] tiotropium 2.5 mcg-olodaterol 2.5 mcg/actuation mist for inhalation 2 inh INHALATION DAILY #4 g 10/19/21 [Rx Last Taken Unknown] cefdinir 300 mg capsule 300 mg PO Q12H #14 cap 10/24/21 [Rx Last Taken Unknown] cyclobenzaprine 10 mg PO TID PRN #10 tab 10/30/21 [Rx Last Taken Unknown] fluticasone propionate 2 spray INTRANASAL DAILY 10/30/21 [History Last Taken Unknown] lidocaine [Lidoderm] 1 patch TOPICAL DAILY #6 ea 10/30/21 [Rx Last Taken Unknown] naproxen [Naprosyn] 500 mg PO BID PRN #20 tab 10/30/21 [Rx Last Taken Unknown] oxycodone 5 mg PO Q6H PRN 3 Days #14 cap 10/30/21 [Rx Last Taken Unknown] Allergy/AdvReac Type Severity Reaction Status Date / Time No Known Allergies Allergy Verified 10/30/21 09:43 Family History Father Alzheimers disease Mother Skin cancer Surgical History S/P bronchoscopy Social History Smoking Status: Former smoker pack-years: 25 ROS ROS ED Constitutional Constitutional ED: Denies chills or fever(s) Eyes Eyes: Denies change in vision ENT ENT ED: Reports ear pain bilateral; Denies sore throat Cardiovascular Cardiovascular: Denies chest pain Respiratory/Chest Respiratory/Chest: Denies cough or dyspnea Gastrointestinal Gastrointestinal: Denies abdominal pain, diarrhea, nausea or vomiting Genitourinary Genitourinary ED: Denies dysuria Musculoskeletal Musculoskeletal: Denies back pain Integumentary Denies rash Neurologic Neurologic: Denies headache(s) or weakness Allergic/Immunologic Allergic/Immunologic ED: Denies urticaria EXAM Physical Exam Const Vital Signs: 10/30/21 09:41 Temperature 97.5 F L Temperature Source Temporal Pulse Rate 83 Respiratory Rate 17 Blood Pressure 147/83 H Blood Pressure Mean 104 Pulse Ox 97 Oxygen Delivery Method Room Air Positive well nourished and well developed General Appearance ED: well developed HEENT Reports TM's clear Tympanic Membrane ED: Yes TM's clear Eyes PERRL and EOMs intact bilaterally Neck no lymphadenopathy and supple Chest Wall inspection of chest normal and palpation of chest normal Resp normal respiratory effort and clear to auscultation bilaterally Cardio regular rate and regular rhythm Extremity normal to inspection Neuro oriented x3 Sensorium / Orientation: alert Psych mental status grossly normal Skin no rashes or lesions noted MDM MDM MDM Narrative Medical decision making narrative: Lab work obtained. CT head with contrast obtained. CT C-spine ordered. Lab Data Attestation: I reviewed the patient's lab results. Labs: Laboratory Results - last 24 hr 10/30/21 10/30/21 11:37 11:37 WBC 4.7 RBC 4.69 Hgb 14.2 Hct 41.1 MCV 87.6 MCH 30.3 MCHC 34.5 RDW Std Deviation 46.9 H RDW Coeff of Samantha 14.7 H Plt Count 257 MPV 9.1 Immature Gran % (Auto) 0.600 Neut % (Auto) 64.5 Lymph % (Auto) 17.6 L [place] % (Auto) 15.0 H Eos % (Auto) 1.9 Baso % (Auto) 0.4 Absolute Neuts (auto) 3.0 Absolute Lymphs (auto) 0.83 Nucleated RBC % 0 Sodium 139 Potassium 4.0 Chloride 108 H Carbon Dioxide 23.0 Anion Gap 8 BUN 19 H Creatinine 0.80 Estim Creat Clear Calc 96.74 Est GFR (MDRD) Af Amer 125 Est GFR (MDRD) Non-Af 103 BUN/Creatinine Ratio 23.9 H Glucose 95 Calcium 9.3 Radiography Diagnostic Testing: Clinical Impression(s) from Imaging Studies Brain CT 10/30/21 10:22 IMPRESSION: No acute intracranial hemorrhage or mass effect. Electronically Signed: Dank Smith MD (Brooks) at 12:47 EST , Service support , Cervical Spine CT 10/30/21 10:22 IMPRESSION: 1. No cervical spine fracture or traumatic subluxation. 2. Interstitial thickening and groundglass opacities of the bilateral upper lobes could represent fluid overload. Recommend correlating with chest x-ray. 3. Degenerative changes, as above. Electronically Signed: Dank Smith MD (Brooks) at 12:49 EST , Service support , Treatment and Re-Evaluation Comments:: Lab work is unremarkable. CT scans reveal no obvious cause of the patient's current symptoms. Because he was sent in by oncology I did speak with Dr. Solorio. We will treat patient symptomatically and have him follow-up. If not improving he may require MRI. Discharge Plan Triage Chief Complaint: Other, Pain/Inj ED Provider: Sara Rose Dx/Rx/DC Orders Clinical Impression: Muscle spasm, Otalgia Instructions: ED Earache Without Infection (Adult), ED Neck Spasm, No Trauma Prescriptions: New naproxen [Naprosyn] 500 mg tablet 500 mg PO BID PRN (Reason: pain) Qty: 20 RF: 0 oxycodone 5 mg capsule 5 mg PO Q6H PRN (Reason: pain) 3 Days Qty: 14 RF: 0 cyclobenzaprine 10 mg tablet 10 mg PO TID PRN (Reason: muscle spasm) Qty: 10 RF: 0 lidocaine [Lidoderm] 5 % adhesive patch,medicated 1 patch topical DAILY Qty: 6 RF: 0 No Action (DME) Acapella See Rx Instructions .Route .MEDSUPPLY Qty: 1 RF: 0 Stiolto Respimat 2.5-2.5 mcg/actuation mist 2 inh INHALATION DAILY Qty: 4 RF: 3 albuterol sulfate [ProAir HFA] 90 mcg/actuation HFA aerosol inhaler 1 - 2 puff inhalation Q6H PRN (Reason: shortness of breath or wheezing) Qty: 8.5 RF: 1 cefdinir 300 mg capsule 300 mg PO Q12H Qty: 14 RF: 0 lisinopril 20 MG tablet 10 mg PO DAILY RF: 0 fluticasone propionate 50 mcg/actuation spray,suspension 2 spray INTRANASAL DAILY RF: 0 Primary Care Provider: Des Che Referrals: Prudencio Sandoval MD [NON-STAFF] - 1 Week Des Che MD [Primary Care Provider] - Disposition Disposition: Home, Self Care
[2021-10-30 11:49] LABS: Absolute Lymphocyte Count 0.83 X10^3/uL (0.83-4.51); Basophil# 0.02 X10^3/uL; Basophil% 0.4 % (0-1); Eosinophil# 0.09 X10^3/uL; Eosinophils% 1.9 % (0-5); Hematocrit 41.1 % (40-54); Hemoglobin 14.2 g/dL (13.0-16.5); Lymphocyte # 0.83 X10^3/ul (0.83-4.51); Lymphocyte % 17.6 % (19-41); Mean Corp Hgb Conc 34.5 g/dL (32-36); Mean Corpuscular Hgb 30.3 pg (27.0-32.0); Mean Corpuscular Volume 87.6 fL (80-94); Mean Platelet Vol. 9.1 fl (6.2-12.0); Monocyte# 0.71 X10^3/uL; NRBC Flagged by Analyzer 0 % (0-5); Neutrophil # 3.04 X10^3/uL (2.7-7.7); Neutrophil % 64.5 % (47-70); Platelet Count 257 K/mm3 (150-450); RBC Distribution Width CV 14.7 % (11.6-14.6); RBC Distribution Width SD 46.9 fl (35.1-43.9); Red Blood Count 4.69 M/mm3 (4.6-6.2); White Blood Count 4.7 K/mm3 (4.4-11.0)
[2021-10-30 12:05] LABS: Anion Gap 8 (5-15); BUN 19 mg/dL (7-18); BUN/Creat Ratio 23.9 RATIO (10-20); Calcium,Total 9.3 mg/dL (8.5-10.1); Chloride 108 mmol/L (98-107); EST Glomerular Filtration Rate 103 mL/min (>60); Est Glom Filt Rate - Afr Amer 125 mL/min (>60); Estimated Creatinine Clearance 96.74 ml/min; Glucose 95 mg/dL (74-106); Sodium Level 139 mmol/L (136-145)
[2021-10-30] MEDS: Naproxen 500 MG Tablet PO (14:32)
[2021-10-30] MEDS: Lidocaine 5% Patch 1 PATCH TOPICAL (14:32)
[2021-10-30] MEDS: cycloBENZAPRine HCl 10 MG Tablet PO (14:32)
[2021-10-30 14:38] VITALS: BP 148/100; PULSE 78; RESP 16; O2SAT 96
== END 2021-10-30 14:39 | disposition home or self-care (01) ==
PROVIDERS: Emergency Provider Emergency Medicine; PCP Family Medicine
DX: M62.838 Other muscle spasm (principal); H92.03 Otalgia, bilateral; I10 Essential (primary) hypertension; Z79.899 Other long term (current) drug therapy; Z87.891 Personal history of nicotine dependence
CPT/HCPCS: 70470; 72125; 80048; 85025; 99285; Q9967; A4216

== ENCOUNTER 2021-11-13 13:30 | Emergency (ER) | payer MEDICARE, BC, SELFPAY ==
[2021-03-14 11:21] VITALS: BMI 29.2
[2021-11-13 13:32] VITALS: BP 126/101; PULSE 92; RESP 18; TEMP 36.3; O2SAT 94; BMI 30.7
--- NOTE | 2021-11-13 14:02 | EKG12_ITS ---
Test Reason : NUMBNESS Blood Pressure : / mmHG Vent. Rate : 080 BPM Atrial Rate : 080 BPM P-R Int : 182 ms QRS Dur : 078 ms QT Int : 376 ms P-R-T Axes : 044 -12 027 degrees QTc Int : 433 ms Normal sinus rhythm Normal ECG Confirmed by PATRIA PEREIRA, FRANCESCA ([id number]), editorial manager BRYON ORTIZ ([id number]) on 11/15/2021 12:10:38 PM Referred By: MERCED Confirmed By:FRANCESCA ESPAÑA MD
[2021-11-13 14:27] LABS: Absolute Lymphocyte Count 1.11 X10^3/uL (0.83-4.51); Absolute Neutrophil Count 5.1 X10^3/uL (2.0-7.7); Basophil# 0.03 X10^3/uL; Basophil% 0.4 % (0-1); Eosinophil# 0.23 X10^3/uL; Eosinophils% 3.2 % (0-5); Hematocrit 42.1 % (40-54); Hemoglobin 14.8 g/dL (13.0-16.5); Lymphocyte # 1.11 X10^3/ul (0.83-4.51); Lymphocyte % 15.4 % (19-41); Mean Corp Hgb Conc 35.2 g/dL (32-36); Mean Corpuscular Hgb 31.2 pg (27.0-32.0); Mean Corpuscular Volume 88.8 fL (80-94); Mean Platelet Vol. 9.4 fl (6.2-12.0); Monocyte# 0.76 X10^3/uL; Monocyte% 10.5 % (0-10); NRBC Flagged by Analyzer 0 % (0-5); Neutrophil # 5.06 X10^3/uL (2.7-7.7); Neutrophil % 70.1 % (47-70); Platelet Count 232 K/mm3 (150-450); RBC Distribution Width CV 14.6 % (11.6-14.6); Red Blood Count 4.74 M/mm3 (4.6-6.2); White Blood Count 7.2 K/mm3 (4.4-11.0)
[2021-11-13 14:38] LABS: Anion Gap 7 (5-15); BUN 19 mg/dL (7-18); BUN/Creat Ratio 25.5 RATIO (10-20); Calcium,Total 8.9 mg/dL (8.5-10.1); Chloride 107 mmol/L (98-107); Creatinine, Serum 0.74 mg/dL (0.70-1.30); EST Glomerular Filtration Rate 112 mL/min (>60); Est Glom Filt Rate - Afr Amer 135 mL/min (>60); Estimated Creatinine Clearance 77.39 ml/min; Glucose 100 mg/dL (74-106); Potassium 3.9 mmol/L (3.5-5.1); Sodium Level 139 mmol/L (136-145)
[2021-11-13 14:44] LABS: International Normalized Ratio 1.1; Partial Thromboplast Time 29.7 Seconds (24.1-36.2); Prothrombin Time (Protime)PT. 13.6 SECONDS (11.7-14.9)
[2021-11-13 15:21] VITALS: BP 145/95; PULSE 85; RESP 12; O2SAT 95
--- NOTE | 2021-11-13 15:33 | CT_ITS ---
STUDY: CT BRAIN WITH AND WITHOUT CONTRAST REASON FOR EXAM: Male, 66 years old. Neuro deficit right side history of lung cancer RADIATION DOSAGE (If Supplied By Facility): CTDIvol = ( 44.99 ) mGy, DLP = ( 1580.97 ) mGycm TECHNIQUE: Transaxial CT imaging of the brain was performed pre and post contrast administration. The examination was performed with intravenous administration of IV 50mL Isovue-370. Individualized dose optimization techniques were used for this CT. COMPARISON: 10/30/2021 FINDINGS: Normal soft tissue structures. Normal calvarium. Normal size ventricles and extra-axial spaces for the patient''s age. Normal white matter tracts of the cerebral hemispheres. Normal basal ganglia and thalami. Normal brainstem. Normal cerebellum. There is no intracranial hemorrhage. There are no findings of an acute ischemic infarction. Chronic mucoperiosteal changes of the right with the left maxillary sinus. CT/Brain/Head W/WO Contrast IMPRESSION: No acute intracranial hemorrhage. No intracranial mass/mass effect. Electronically Signed: Dank Smith MD (Brooks) at 16:27 EST , Service support ,
--- NOTE | 2021-11-13 15:35 | ED.VIS.STROK ---
HPI History of Present Illness Chief Complaint: Numb/Ting Detail of Chief Complaint: Increasing weakness numbness right side with altered fine dexterity Informant: patient and spouse/S.O. Onset/Context/Timing Onset: Weeks (Seen October 30 for numbness right side. Patient now presents with weakness) Context: Gradual Onset Timing: Continuous Quality and Location: Positive for Right Arm Parasthesia, Right Leg Parasthesia, Right Arm Weakness and Right Leg Weakness Current Severity: Moderate Maximum Severity: Moderate Worsened by: Nothing Relieved by: Nothing Associated Symptoms Associated Symptoms: Negative for Headache, Nausea, Vomiting and Chest Pain Narrative Narrative: Patient is a 66-year-old male with history of stage III non-small cell lung cancer who was seen October 30 for right-sided numbness. Work-up at that time was negative. He now presents because of weakness and problems with fine dexterity on the right. States he is having trouble using his arm to do things. This has gotten significantly worse over the last 4 to 5 days. He denies headache, double vision, blurred vision loss of vision. [place] ringing his ears or decreased hearing. He denies trouble with speech or swallowing. He denies neck pain. He denies chest pain, shortness of breath, dyspnea on exertion, orthopnea or PND. He denies abdominal pain, nausea, vomiting or diarrhea. There is no history of trauma. His oncologist is Dr. Garay and his mechanical maintenance is Dr. Garcia Prior similar symptoms: Yes Recent Illness/Hospitalization: Yes [facility] Medical History Acute respiratory failure with hypoxia Contact with and (suspected) exposure to other viral communicable diseases Dyspnea Ear pain, right Encounter for education Former smoker Hemoptysis Hypertension Lung mass NSCLC of left lung Odynophagia Pneumonia Shortness of breath Home Medications lisinopril 10 mg PO DAILY 03/13/21 [History Last Taken 03/23/21 19:00] Acapella #1 each 03/24/21 [Rx Last Taken Unknown] albuterol sulfate 90 mcg/actuation aerosol inhaler 1 - 2 puff INHALATION Q6H PRN #8.5 g 09/18/21 [Rx Last Taken Unknown] tiotropium 2.5 mcg-olodaterol 2.5 mcg/actuation mist for inhalation 2 inh INHALATION DAILY #4 g 10/19/21 [Rx Last Taken Unknown] cefdinir 300 mg capsule 300 mg PO Q12H #14 cap 10/24/21 [Rx Last Taken Unknown] cyclobenzaprine 10 mg PO TID PRN #10 tab 10/30/21 [Rx Last Taken Unknown] fluticasone propionate 2 spray INTRANASAL DAILY 10/30/21 [History Last Taken Unknown] lidocaine [Lidoderm] 1 patch TOPICAL DAILY #6 ea 10/30/21 [Rx Last Taken Unknown] naproxen [Naprosyn] 500 mg PO BID PRN #20 tab 10/30/21 [Rx Last Taken Unknown] oxycodone 5 mg PO Q6H PRN 3 Days #14 cap 10/30/21 [Rx Last Taken Unknown] Allergy/AdvReac Type Severity Reaction Status Date / Time No Known Allergies Allergy Verified 11/13/21 13:31 Family History Father Alzheimers disease Mother Skin cancer Surgical History S/P bronchoscopy Social History (Updated 11/13/21 @ 15:[address] Neymar Lemons MD) household members: spouse Smoking Status: Former smoker pack-years: 25 substance use type: does not use ROS ROS ED Constitutional Constitutional ED: Denies chills, fever(s), subjective, sweats or weakness Eyes Eyes: Denies blurry vision, change in vision or diplopia ENT ENT ED: Denies ear pain, rhinorrhea or sore throat Cardiovascular Cardiovascular: Denies chest pain, palpitations or paroxysmal nocturnal dyspnea Respiratory/Chest Respiratory/Chest: Denies cough, dyspnea, dyspnea on exertion, paroxysmal nocturnal dyspnea or sputum Gastrointestinal Gastrointestinal: Denies abdominal pain, diarrhea, nausea or vomiting Genitourinary Genitourinary ED: Denies dysuria, hematuria or urinary frequency Musculoskeletal Musculoskeletal: Denies arthralgias, back pain, myalgias or neck pain Integumentary Denies rash Neurologic Neurologic: Reports paresthesias and weakness; Denies headache(s) Endocrine Endocrinology: Denies polydipsia, polyphagia or polyuria Hematologic/Lymphatic Hematologic/Lymphatic: Denies easy bleeding or easy bruising EXAM Physical Exam Const Vital Signs: 11/13/21 13:32 12/13/21 15:21 11/13/21 15:23 Temperature 97.4 F L Temperature Source Temporal Pulse Rate 92 85 Respiratory Rate 18 12 Blood Pressure 126/101 H 145/95 H Blood Pressure Mean 109 111 Pulse Ox 94 95 Oxygen Delivery Method Room Air Room Air Room Air 11/13/21 17:33 Temperature Temperature Source Pulse Rate 78 Respiratory Rate 18 Blood Pressure 137/88 H Blood Pressure Mean 104 Pulse Ox 95 Oxygen Delivery Method Room Air Positive well nourished and well developed General Appearance ED: well developed and NAD HEENT Reports TM's clear and moist mucous membranes atraumatic Nose: other Other Details: Head is normocephalic. Uvula is midline. There is no erythema or exudate of posterior pharynx. Tympanic Membrane ED: Yes TM's clear Eyes PERRL and EOMs intact bilaterally General Eye ED: Yes other Other Details: There is no nystagmus with central gaze or lateral gaze. ; Negative for pale conjunctiva or scleral icterus Neck no lymphadenopathy, supple and no JVD Chest Wall inspection of chest normal and palpation of chest normal Resp normal respiratory effort and clear to auscultation bilaterally Cardio no murmurs Rate: regular rate Rhythm: regular rhythm Heart Sounds: S1 normal and S2 normal GI normal to inspection, nondistended, normoactive bowel sounds and soft to palpation Back/Spine no CVA tenderness Thoracic Spine / Upper Back: Negative for thoracic spinal tenderness Lumbar Spine / Lower Back: Negative for lumbar spinal tenderness Extremity normal to inspection General Extremety ED: Negative for deformity or tenderness General Extremity: Negative for deformity Neuro oriented x3, CN's II-XII intact bilaterally and No no sensory deficits noted Haroldo Coma Scale: document GCS findings Spontaneous Obeys Commands Oriented 15 Sensorium / Orientation: alert Motor Exam: Negative for strength 5/5 throughout Skin no wounds General Skin Exam: Negative for jaundice Lesions: no lesions Rashes: no rashes STROKE Vital Signs/Narrative: Vital Signs Pulse Resp BP Pulse Ox 11/13/21 17:33 78 18 137/88 H 95 11/13/21 15:21 85 12 145/95 H 95 NIHSS Initial: 1a Level of Consciousness: 0 1b LOC Questions (Score 2 if aphasic/stupor): 0 1c LOC Commands (Only score 1st attempt): 0 2 Best Gaze (If aphasic, use reflexive mvmts.): 0 3 Visual: 0 4 Facial Palsy: 0 5 Motor Arm Right (UN = amputation/fusion): 1 5 Motor Arm Left: 0 6 Motor Leg Right: 1 6 Motor Leg Left: 0 7 Limb ataxia (Only + if out of proportion): 0 8 Sensory (Aphasia/stupor=0 or 1, coma=2): 1 9 Best Language: 0 10 Dysarthria (mute, coma=2, intubated=UN): 0 11 Extinction and Inattention (only scored if +): 0 Total Score: 3 MDM MDM MDM Narrative Medical decision making narrative: Differential diagnosis would would include stroke versus metastasis. CT of the head with and without contrast was ordered especially since he had a unenhanced #29 and now has worsening symptoms. CT with and without contrast is unremarkable. Case discussed with oncologist on-call, Dr. Solorio. He requested patient call office in the morning for outpatient MRI. Lab Data Attestation: I reviewed the patient's lab results. Labs: Laboratory Results - last 24 hr 11/13/21 11/13/21 11/13/21 14:20 14:20 14:20 WBC 7.2 RBC 4.74 Hgb 14.8 Hct 42.1 MCV 88.8 MCH 31.2 MCHC 35.2 RDW Std Deviation 48.0 H RDW Coeff of Samantha 14.6 Plt Count 232 MPV 9.4 Immature Gran % (Auto) 0.400 Neut % (Auto) 70.1 H Lymph % (Auto) 15.4 L [place] % (Auto) 10.5 H Eos % (Auto) 3.2 Baso % (Auto) 0.4 Absolute Neuts (auto) 5.1 Absolute Lymphs (auto) 1.11 Nucleated RBC % 0 PT 13.6 INR 1.1 APTT 29.7 Sodium 139 Potassium 3.9 Chloride 107 Carbon Dioxide 25.0 Anion Gap 7 BUN 19 H Creatinine 0.74 Estim Creat Clear Calc 77.39 Est GFR (MDRD) Af Amer 135 Est GFR (MDRD) Non-Af 112 BUN/Creatinine Ratio 25.5 H Glucose 100 Calcium 8.9 Radiography Diagnostic Testing: Clinical Impression(s) from Imaging Studies Brain CT 11/13/21 15:33 IMPRESSION: No acute intracranial hemorrhage. No intracranial mass/mass effect. Electronically Signed: Dank Smith MD (Brooks) at 16:27 EST , Service support , Chest X-Ray 11/13/21 16:05 IMPRESSION: 1. Left perihilar and bibasilar atelectasis or infiltrates. Electronically Signed: Dank Smith MD (Brooks) at 16:24 EST , Service support , Single view chest x-ray reveals interstitial markings left perihilar area and there appears to be atelectasis at the bases. This also may represent residual Covid pneumonia since patient was recently diagnosed with Covid pneumonia. Discharge Plan Triage Chief Complaint: Numb/Ting ED Provider: Neymar Lemons Dx/Rx/DC Orders Clinical Impression: Paresthesia of right arm and leg, NSCLC of left lung, Right sided weakness Instructions: ED Weakness (Uncertain Cause), ED Paraesthesias Prescriptions: No Action (DME) Acapella See Rx Instructions .Route .MEDSUPPLY Qty: 1 RF: 0 Stiolto Respimat 2.5-2.5 mcg/actuation mist 2 inh INHALATION DAILY Qty: 4 RF: 3 albuterol sulfate [ProAir HFA] 90 mcg/actuation HFA aerosol inhaler 1 - 2 puff inhalation Q6H PRN (Reason: shortness of breath or wheezing) Qty: 8.5 RF: 1 cefdinir 300 mg capsule 300 mg PO Q12H Qty: 14 RF: 0 lisinopril 20 MG tablet 10 mg PO DAILY RF: 0 fluticasone propionate 50 mcg/actuation spray,suspension 2 spray INTRANASAL DAILY RF: 0 naproxen [Naprosyn] 500 mg tablet 500 mg PO BID PRN (Reason: pain) Qty: 20 RF: 0 oxycodone 5 mg capsule 5 mg PO Q6H PRN (Reason: pain) 3 Days Qty: 14 RF: 0 cyclobenzaprine 10 mg tablet 10 mg PO TID PRN (Reason: muscle spasm) Qty: 10 RF: 0 lidocaine [Lidoderm] 5 % adhesive patch,medicated 1 patch topical DAILY Qty: 6 RF: 0 Primary Care Provider: Des Che Referrals: Prudencio Sandoval MD [NON-STAFF] - As soon as possible (Outpatient MRI) Des Che MD [Primary Care Provider] - Activity Restrictions/Additional Instructions: Call Dr. Sandoval's office in the morning to schedule outpatient MRI Disposition Disposition: Home, Self Care
--- NOTE | 2021-11-13 16:05 | RAD_ITS ---
STUDY: X-RAY CHEST REASON FOR EXAM: Male, 66 years old. Stroke TECHNIQUE: AP COMPARISON: 06/19/2021 CT FINDINGS: Right jugular chest port present with tip overlying the lower SVC. Lungs are underexpanded. Left perihilar and bibasilar parenchymal opacities. There is no demonstrated pleural abnormality. Normal size heart. Normal mediastinum and lorenzo. Normal visualized pulmonary arteries. Normal visualized aortic arch and descending thoracic aorta. No acute bony process. There is no demonstrated abnormality of the visualized soft tissue structures of the upper abdomen. RAD/Chest 1 View (Portable) IMPRESSION: 1. Left perihilar and bibasilar atelectasis or infiltrates. Electronically Signed: Dank Smith MD (Brooks) at 16:24 EST , Service support ,
[2021-11-13 17:33] VITALS: BP 137/88; PULSE 78; RESP 18; O2SAT 95
[2021-11-13 18:30] VITALS: BP 141/100; PULSE 84; RESP 22; O2SAT 95
== END 2021-11-13 18:36 | disposition home or self-care (01) ==
PROVIDERS: Emergency Provider Emergency Medicine; PCP Family Medicine
DX: R20.2 Paresthesia of skin (principal); M62.81 Muscle weakness (generalized); C34.92 Malignant neoplasm of unspecified part of left bronchus or lung; I10 Essential (primary) hypertension; Z79.899 Other long term (current) drug therapy; Z86.16 Personal history of COVID-19; Z87.891 Personal history of nicotine dependence
CPT/HCPCS: 70470; 71045; 80048; 85025; 85610; 85730; 93005; 99284; Q9967; A4216

== ENCOUNTER → 2021-11-14 13:54 | Outpatient (CLI) | payer MEDICARE, BC, SELFPAY ==
[2021-03-14 11:21] VITALS: BMI 29.2
--- NOTE | 2021-11-14 13:59 | MRI_ITS ---
EXAM: MR HEAD WITHOUT AND WITH INTRAVENOUS CONTRAST : 1955 CLINICAL INDICATION: right arm/ leg paresthesia; h/o NSCLC, prev 03/09/21 TECHNIQUE: Multiplanar and multisequence MR images of the brain were obtained without and with intravenous contrast. This report was created using [employer] technology. CONTRAST: IV 20ml Dotarem COMPARISON: CT brain November 13, 2021 FINDINGS: BRAIN AND EXTRA-AXIAL SPACES: No abnormal contrast enhancement.. No intra- or extra-axial hemorrhage. No evidence of acute infarct. No intracranial mass or mass effect. There is preservation of the taylor/white matter interface. Posterior fossa structures are unremarkable. Ventricles are appropriate for age. No hydrocephalus. Basal cisterns are patent. SELLA: Unremarkable. Normal sella turcica, pituitary gland, infundibular stalk, optic chiasm and hypothalamus. AUDITORY SYSTEM: Unremarkable. The internal auditory canals are patent. BONES/JOINTS: Unremarkable. No discrete lytic or blastic abnormalities. SINUSES: Prominent mucoperiosteal thickening of the right maxillary sinus again noted as well as small fluid collection within the left maxillary sinus. MASTOID AIR CELLS: Unremarkable as visualized. Clear. ORBITS: Unremarkable as visualized. Both globes, extraocular muscles, optic nerves and retrobulbar fat appear unremarkable. VASCULATURE: Unremarkable as visualized. Normal flow voids in the major intracranial circulation. MRI/Brain W/WO Contrast IMPRESSION: No intracranial abnormality. at 1625 Reported and signed by: Ralf Lindquist MD N.B. : The above Results were Read Back by Toni Avila MD to Natalia Nguyen NP, and understanding confirmed on 11/14/2021 17:10:30 (ET). Electronically Signed: Ralf Lindquist MD at 16:24 EST Tel , Service support ,
[2021-11-14] MEDS: 0.9% Saline Lock 10 ML Syringe IV (15:45)
== END ==
PROVIDERS: PCP Family Medicine; Referring Provider Nurse Practitioner Family; Visit Provider Nurse Practitioner Family
DX: R20.2 Paresthesia of skin (principal)
CPT/HCPCS: 70553; A9575; A4216

== ENCOUNTER → 2021-11-15 | Outpatient (CLI) | payer MEDICARE, BC, SELFPAY ==
[2021-03-14 11:21] VITALS: BMI 29.2
--- NOTE | 2021-11-15 13:06 | MRI_ITS ---
STUDY: MRI THORACIC SPINE WITH AND WITHOUT CONTRAST REASON FOR EXAM: Male, 66 years old. parasethesia, cervical spine lesion, history non-s TECHNIQUE: IV 20ml dotarem was administered for the contrast portion of the examination. COMPARISON: None. FINDINGS: Normal kyphosis of the thoracic spine. There is no substantial scoliosis. There is desiccation of the disc at T2-3 and mild bulging disc mildly narrowing the central canal without cord compression There is also a tiny central disc protrusion at T3-4 without spinal stenosis. Cervical cord syrinx noted terminating at approximately T1. Normal conus medullaris that terminates at T12-L1. The soft tissue structures are unremarkable. There is a small bony lesion within the T11 vertebral body demonstrating increased signal intensity on T2 as well as STIR imaging sequences and demonstrates mild enhancement following contrast administration which may be consistent with metastatic lesion.. MRI/Spine Thoracic W/WO Contrast IMPRESSION: Small enhancing lesion in the T11 vertebral body possibly representing metastatic lesion.. Mild bulging disc at T2-3 narrowing the central canal without cord compression. Tiny central disc protrusion at T3-4 without spinal stenosis Electronically Signed: Toni Avila MD at 16:49 EST , Service support ,
--- NOTE | 2021-11-15 13:06 | MRI_ITS ---
STUDY: MRI CERVICAL SPINE WITH AND WITHOUT CONTRAST REASON FOR EXAM: Male, 66 years old. parathesia, cervical spine lesion; h/o NSCLC TECHNIQUE: Standardized fat and water weighted pulse sequences were obtained in the sagittal and axial following administration of IV dotarem 20ml. COMPARISON: None FINDINGS: Normal foramen magnum and brainstem-cervical cord junction. Normal craniovertebral junction. Normal anterior atlantoaxial articulation. Normal odontoid process. Normal cervical lordosis. Normal vertebral bodies and posterior osseous elements. C2-3: Normal endplates. Normal disc height, signal and morphology. Normal central canal and intervertebral neural foramina. C3-4: Normal endplates. Normal disc height, signal and morphology. Normal central canal and intervertebral neural foramina. C4-5: Normal endplates. Normal disc height, signal and morphology. Normal central canal and intervertebral neural foramina. C5-6: Degenerative endplate changes. Narrowed disc space with desiccation of the disc and broad-based right posterolateral/foraminal disc protrusion mildly narrowing the central canal and impinging upon the cord creating severe right neuroforaminal stenosis.. C6-7: Grade 1 retrolisthesis. Narrowed disc space and minor bulging disc osteophyte complex, narrowing the central canal. Mild right neuroforaminal encroachment and mild to moderate narrowing on the left secondary to bony hypertrophy. C7-T1: Normal endplates. Normal disc height, signal and morphology. Normal central canal and intervertebral neural foramina. There is a heterogeneously enhancing intramedullary nodule in the cord measuring approximately 1.2 x 1 x 1.07 cm posterior to the C2 vertebral body in association with large syrinx extending from the craniocervical junction to T1. No other enhancing lesions are identified Normal visualized soft tissue structures. MRI/Spine Cervical W/WO Contrast IMPRESSION: Heterogeneously enhancing intramedullary nodule within the cervical cord at C2 which may be consistent with metastatic disease in association with proximal and distal cervical syrinx. Spondylosis and spinal stenosis at C5-C6 greater on the right secondary to disc disease and bony hypertrophy Other findings as above Electronically Signed: Toni Avila MD at 16:30 EST , Service support ,
--- NOTE | 2021-11-15 13:06 | MRI_ITS ---
STUDY: MRI LUMBAR SPINE WITH AND WITHOUT CONTRAST REASON FOR EXAM: Male, 66 years old. Paresthesia, cervical spine lesion, history non-sm TECHNIQUE: Standardized fat and water weighted pulse sequences were obtained in the sagittal and axial planes. IV dotarem 20ml was administered for the contrast portion of the examination. COMPARISON: None FINDINGS: T12-L1: Normal endplates. Normal disc height, hydration and morphology. Normal bilateral facet joints. Normal central canal and bilateral lateral recesses. Normal bilateral intervertebral neural foramina. Normal lumbar lordosis. There is no substantial scoliosis. Normal conus medullaris that terminates at T12-L1 L1-2: Minor endplate spurring.. Normal disc height, desiccation and minimal annular bulge.. Normal bilateral facet joints. Normal central canal and bilateral lateral recesses. Normal bilateral intervertebral neural foramina. L2-3: Minor endplate spurring. Normal disc height, hydration and small right foraminal disc protrusion.. Normal bilateral facet joints. Normal central canal and bilateral lateral recesses. Mild right neuroforaminal encroachment.. L3-4: Normal endplates. Normal disc height, desiccation and minor annular bulge with small right foraminal disc protrusion.. Mild facet arthropathy.. Normal central canal and bilateral lateral recesses. Mild left neural foraminal stenosis and moderate narrowing on the right.. L4-5: Mild endplate spurring. Normal disc height, desiccation and minimal annular bulge.. Bilateral facet arthropathy.. Normal central canal and bilateral lateral recesses. Mild bilateral neuroforaminal encroachment. L5-S1: Normal endplates. Normal disc height, desiccation and minimal annular bulge with small left posterolateral/foraminal disc protrusion.. Bilateral facet arthropathy.. Normal central canal. Mild left lateral recess stenosis.. Moderate left neuroforaminal stenosis and more severe narrowing on the right Normal visualized sacral ala. Normal visualized paraspinous soft tissue structures. No enhancing lesions following contrast administration MRI/Spine Lumbar W/WO Contrast IMPRESSION: No acute fracture or other significant bony pathology.. Mild spondylosis and mild multilevel spinal stenosis secondary to disc disease and bony hypertrophy. No evidence for metastatic disease Findings as above Electronically Signed: Toni Avila MD at 16:37 EST , Service support ,
[2021-11-15] MEDS: 0.9% Saline Lock 10 ML Syringe IV (15:10)
== END | disposition short-term general hospital (02) ==
LOC: MRI 13:06
PROVIDERS: PCP Family Medicine; Visit Provider Internal Medicine Medical Oncology
DX: M48.02 Spinal stenosis, cervical region (principal); C34.02 Malignant neoplasm of left main bronchus; M51.24 Other intervertebral disc displacement, thoracic region; M48.04 Spinal stenosis, thoracic region; M47.816 Spondylosis without myelopathy or radiculopathy, lumbar region; M48.061 Spinal stenosis, lumbar region without neurogenic claudication; R20.2 Paresthesia of skin
CPT/HCPCS: 72156; 72157; 72158; 77014; 77290; A9575; A4216

== ENCOUNTER → 2021-11-23 14:33 | Outpatient (CLI) | payer MEDICARE, BC, SELFPAY ==
[2021-03-14 11:21] VITALS: BMI 29.2
--- NOTE | 2021-11-23 14:35 | CT_ITS ---
STUDY: CT CHEST, ABDOMEN T PELVIS WITH CONTRAST REASON FOR EXAM: Male, 66 years old. RESTAGING LUNG CANCER RADIATION DOSAGE (If Supplied By Facility): CTDIvol = ( 21.76 ) mGy, DLP = ( 2307.80 ) mGycm TECHNIQUE: Transaxial imaging was performed following intravenous administration of IV 100mL Isovue-370. Individualized dose optimization techniques were used for this CT. COMPARISON: 06/19/2021 FINDINGS: CHEST Mild emphysema. Bilateral subpleural scarring. Some atelectasis in the superior segment left lower lobe. No nodule or mass. There is no demonstrated pleural abnormality. Normal heart and pericardium. Normal mediastinum. Normal hilar regions. Normal unenhanced pulmonary arteries. Normal aorta arch and descending thoracic aorta. Normal osseous structures. There is no demonstrated abnormality of the visualized upper abdomen. ABDOMEN The visualized lung bases are unremarkable. The visualized portions of the heart are within normal limits. Normal liver. The gallbladder is contracted. Normal spleen. Normal pancreas. Normal bilateral adrenal glands. Normal right kidney. Normal left kidney. Normal visualized stomach. Normal small intestine. Normal colon. There are surgical clips in the region of the appendix consistent with a prior appendectomy. There is diffuse atherosclerotic calcification of the abdominal aorta with elongation and tortuosity, but without a demonstrated aneurysm. Normal inferior vena cava. Normal retroperitoneum. Normal abdominal wall. Normal osseous structures. PELVIS Normal urinary bladder. Normal visualized small intestine. Normal visualized colon. There is no pelvic fluid. There is no pelvic lymphadenopathy or mass lesion. Normal visualized pelvic arteries. Normal abdominal wall. Normal osseous structures. CT/CT Chest, Abd, Pel w/Contrast IMPRESSION: No CT evidence of residual, recurrent, or metastatic bronchogenic carcinoma. Electronically Signed: Ben Delgado MD at 15:01 EST Tel , Service support ,
[2021-11-23] MEDS: 0.9% Saline Lock 10 ML Syringe IV (14:55)
== END ==
PROVIDERS: PCP Family Medicine; Visit Provider Internal Medicine Medical Oncology
DX: C34.92 Malignant neoplasm of unspecified part of left bronchus or lung (principal); C79.49 Secondary malignant neoplasm of other parts of nervous system
CPT/HCPCS: 71260; 74177; Q9967; A4216

== ENCOUNTER → 2021-11-27 09:58 | Outpatient (CLI) | payer MEDICARE, BC, SELFPAY ==
[2021-03-14 11:21] VITALS: BMI 29.2
--- NOTE | 2021-11-27 09:59 | NM_ITS ---
CLINICAL: 66-year-old male with reported history of primary lung carcinoma. WHOLE BODY 99m Tc MDP RADIONUCLIDE BONE SCINTIGRAPHY COMPARISON: None available FINDINGS: Following the intravenous administration of 24.5 mCi of 99m Tc MDP, whole body bone images reveal: 1. Increased radiopharmaceutical concentration is identified in the acromioclavicular and sternoclavicular compartments of both shoulders, glenohumeral compartment of the left shoulder, the right knee. 2. The remaining skeletal structures are scintigraphically unremarkable with normal-appearing renal images and urinary bladder activity identified. There is visualized rib stifling noted in the right-left posterior chest wall. Facilitated uptake is observed in the right-left maxilla and right zygoma most consistent with periostitis. NM/Bone Scan Whole Body IMPRESSION: 1. The increase in radiopharmaceutical concentration defined in the bilateral shoulders and right knee is most consistent with degenerative arthritis. 2. There is no definitive typical scintigraphic evidence of multifocal axial skeletal metastatic disease. Electronically Signed: Ben Staples DO at 22:30 EST Tel , Service support ,
== END ==
PROVIDERS: PCP Family Medicine; Referring Provider Internal Medicine Medical Oncology; Visit Provider Internal Medicine Medical Oncology
DX: C79.51 Secondary malignant neoplasm of bone (principal); C79.49 Secondary malignant neoplasm of other parts of nervous system; C34.92 Malignant neoplasm of unspecified part of left bronchus or lung
CPT/HCPCS: 78306; A9503

== ENCOUNTER 2021-12-21 14:00 | Outpatient (RCR) | payer MEDICARE, BC, SELFPAY ==
[2021-03-14 11:21] VITALS: BMI 29.2
--- NOTE | 2021-12-13 13:37 | HP.PTEVAL ---
Patient's Visit Information SHASHA RODRIGUEZ is a 66 year old M referred to Physical Therapy by Dr. Jhonatan Barraza, with a diagnosis of MALIGANT NEOPLASM OF THE SPINAL CORD. Date of Evaluation: 12/12/21 Physical Therapist: Arti Fox PT, Cert MDT - Visit Plan Frequency: 2-3x /Week Duration: 4-6 Weeks Plan: GAIT AND BALANCE TRAINING. POSTURE CORRECTION/STRENGTHENING, INSTRUCTION IN APPROPRIATE BODY MECHANICS AND ACTIVITY MODIFICATIONS. DLS STARTING WITH A NEUTRAL SPINE PROGRESSING ROM TOLERATED. OWEN LE ROM, STRETCHING AND STRENGTHENING. HEP INSTRUCTION. - Subjective PATIENT REPORTS HE WAS SENT TO PT BY DR. BARRAZA AT THE [facility]. Work/Leisure: SELF EMPLOYEED [employer]. I GO TO THE OFFICE EVERYDAY FOR A COUPLE HOURS. DESK WORK ONLY RIGHT NOW. LEFT HAND ONLY. Disability: NO. Present symptoms: I GET REALLY TIRED. I WOULD SAY FATIGUE IS MY NUMBER ONE PROBLEM. TRYING TO DO EVERYTHING WITH LEFT HAND IS VERY HARD. PATIENT REPORTS IT IS HARD TO DESCRIBE HIS SX'S BUT RIGHT NOW HIS NECK AND ENTIRE RIGHT ARM FEEL STIFF AND DO NOT FEEL GOOD. RIGHT LE WEAKNESS AND NUMBNESS IN FEET. RIGHT UE AND LE NUMBNESS. LEFT HAND TINGLING. MOST OF THE PAIN IS IN THE RIGHT SHLD, ARM INTO HAND AND RIGHT SIDE OF CORE. Present since: ABOUT 9 WEEKS AGO (APPROX OCT 02 2021). Pain Scale: WORST 5/10, LEAST 1/10. Currently: 4/10. 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 Symptoms at onset: RIGHT EAR PAIN. Worse: IN THE MORNING EVERYTHING IS TIGHT AND IT FEELS LIKE IT TAKES ALL DAY TO GET EVERYTHING LOOSENDED. TRYING TO DO TOO MUCH. Better: THE DAY PROGRESS'S. Disturbed sleep: NO EXCEPT FOR GOING TO THE BATHROOM. I SLEEP IN A CHAIR. I TRY TO SLEEP IN THE BED BUT I CAN'T ROLL OVER BECAUSE I DON'T HAVE ANY CORE. Previous history/Previous treatment: NO SURGERY. NO CHEMO. REPORTS THAT THEY STARTED WITH RADIATION IMMEDIATELY. STATES THEY COULD ONLY DO 5 DUE TO PAST RADIATION TREATMENTS AND BECAUSE OF WHERE IT WAS PER PATIENTS UNDERSTANDING. LAST RADIATION TREATMENT WAS 3 WEEKS AGO. NO PT OR OT SINCE THIS DX. EXPECTING NEXT SCAN TO BE APPROX 2 TO 3 MONTHS. PATIENT REPORTS THIS ALL STARTED IN MARCH 2021. 6 WEEKS OF CHEMO AND RADIATION FOR LUNG CANCER STAGE 3. LAST TREATMENT WAS MAY 2021. PATIENT REPORTS HE TOLERATED THOSE TREATMENTS WELL AND RECOVERED FULLY. GOT COVID SEP 15 2021 AND RECOVED IN ABOUT A WEEK WITH OUTPATIENT TREATMENT. Coughing/sneezing/straining: NEGATIVE. Gait: I GET UP AT NIGHT AND WALK TO THE BATHROOM WITH THE WALKER BUT I CARRY IT SO I DON'T CATCH IT ON ANYTHING. I GET UP 2-3 TIMES AT NIGHT TO GO TO THE BATHROOM ABOUT 20 FEET TO THE BATHROOM. PATIENT REPORTS HE FELL TWICE ABOUT A WEEK AGO. ONCE WAS IN THE MIDDLE OF THE NIGHT GETTING TANGLED UP IN THE WALKER AND ONCE TRIED TO WALK WITHOUT THE WALKER. PATIENT DENIES ANY INJURIES FROM THE FALLS. I'M JUST WEAK. Difficulty initiating urination: NOT CURRENTLY. NOT HAVING LOSS OF BOWEL OR BLADDER CONTROL. Accidents: NO. Unexplained weight loss: NO. Imaging: MULTIIPLE SCANS TO DX THE CANCER. PMH/Recent major surgery: HTN. PLOF (Prior Level of Function): UNLIMITED ACTIVITY UNTIL ABOUT 9 WEEKS AGO WHEN EAR PAIN STARTED. MOWING. REMODELING BARN AND OTHER PHYSICAL WORK. OTHER: PATIENT REPORTS HE ALSO HAD HIGH DOSES OF STEROIDS WHEN FIRST DX'D BECAUSE WEAKNESS WAS SPREADING TO LEFT SIDE. STILL ON STEROIDS BUT TAPERING OFF. - Objective Sitting/Standing Posture: POOR. LEANS FORWARD HANDS/ELBOWS ON KNEES FREQUENTLY DURING SESSION. Lordosis: REDUCED. Other Observations: THIS PATIENT WAS BROUGHT BACK TO PT BY HIS IN A W/C. HE DEMO'S INDEP TRANSFER SIT TO STAND WITH OWEN UE ASSIST FROM W/C TO FWW. HE INITIALLY STARTED TO WALK CARRYING WALKER BUT WITH CUEING USED WALKER PROPER X 15 FEET INDEP'LY AND SAT SAFELY IN CHAIR. PATIENT HAS DECREASED COORDINATION AND FOOT PLACEMENT WITH RIGHT LE ALONG WITH DECREASED WEIGHT BEARING TIME RIGHT LE. Motor deficit: LEFT UE AND LE WFL. RIGHT UE DEFERRED TO OT CONSULT. RIGHT LE: HIP 3-/5, KNEE 3-/5, ANKLE 3-/5. Sensory deficit: DECREASED LIGHT TOUCH SENSATION OF RIGHT LE COMPARED TO LEFT. ROM deficit: TIGHT OWEN LE HIP FLEXORS, HS'S AND GASTROC SOLEUS COMPLEX'S. Lumbar mvmt loss: flex - MOD. ext - RENY. R SG - RENY. L SG - RENY. PATIENT REQUIRES UE ASSIST FOR SAFETY WITH LUMBAR ROM TESTING. Core strength: POOR. TREATMENT/EDUCATION: NEUROMUSCULAR REEDUCATION - BRIEF INTO TO RETRAINING OF MVMT AND POSTURE FOR SITTING AND STANDING ACTIVITIES. ENCOURAGED PATIENT TO KEEP WALKER ON THE GROUND AND NOT CARRYING IT. ALSO INSTRUCTED PATIENT AND IN REMOVAL OF THROW RUGS AND MAKING CLEAR PATHWAYS IN HOME. - Balance/Special Test Scores Oswestry Low Back Score: 22 - Goals Goal 1:: DECREASE C/O SPINE AND RIGHT UE AND LE SX'S. Goal Time Frame: 4-6 Weeks Goal 2:: IMPROVE PERSONAL CARE, LIFTING, WALKING, STANDING, SOCIAL LIFE AND HOMEMAKING FUNCTION. Goal Time Frame: 4-6 Weeks Goal 3:: PATIENT WILL BE INDEP AND SAFE WITH GAIT ON LEVEL SURFACES WITH LEAST ASSISTIVE DEVICE. Goal Time Frame: 4-6 Weeks Goal 4:: PATIENT WILL BE INDEP WITH THE HELP OF PRIMARY COLLET MAKING MACHINE OPERATOR () FOR CONTINUED IMPROVEMENT ONCE FORMAL PHYSICAL THERAPY CONCLUDES. - Anticipated Interventions Patient/Client Instruction: Educate patient on: Condition, Plan of Care, Risk Factors For the Purpose of:: To improve self management Therapeutic Exercise to Include: Strength training, Body mechanics, Postural training, Flexibilty training, Gait and locomotor training, Neuromotor development, Dynamic Lumbar Stabilization For the Purpose of:: To decrease pain, To increase ROM, To improve muscle performance and motor function, To increase tolerance to activity/condition/position, To improve ability of physical actions for home/community/work/leisure, To improve gait and locomotor functions Thank you for the opportunity to evaluate your patient. For Medicare and Medicare HMO plans, please review the plan of care and approve it. It will need to be FAXED BACK to us at [phone] for Medicare purposes. For Medicare only, by signing this I certify the plan of care. Please let me know if there are questions or concerns regarding this plan of care. Physician Signature: Date:
--- NOTE | 2021-12-21 15:15 | HP.OTEVAL_ITS ---
Patient's Visit Information SHASHA RODRIGUEZ is a 66 year old M, referred to Occupational Therapy by Dr. Jhonatan Barraza, , with a diagnosis of weakness. Date of Evaluation: 12/21/21 Occupational Therapist: Carolyn Tyson, ELIECERR/Mara, CHT - Subjective This 66 year old male was seen for OT eval with dx of weakness due to secondary malignant neoplasm of spinal canal. PATIENT REPORTS HE WAS SENT TO PT BY DR. BARRAZA AT THE [facility]. Work/Leisure: SELF EMPLOYEED [employer]. I GO TO THE OFFICE EVERYDAY FOR A COUPLE HOURS. DESK WORK ONLY RIGHT NOW. LEFT HAND ONLY. Disability: NO. Present symptoms: I GET REALLY TIRED. I WOULD SAY FATIGUE IS MY NUMBER ONE PROBLEM. TRYING TO DO EVERYTHING WITH LEFT HAND IS VERY HARD. PATIENT REPORTS IT IS HARD TO DESCRIBE HIS SX'S BUT RIGHT NOW HIS NECK AND ENTIRE RIGHT ARM FEEL STIFF AND DO NOT FEEL GOOD. RIGHT LE WEAKNESS AND NUMBNESS IN FEET. RIGHT UE AND LE NUMBNESS. LEFT HAND TINGLING. MOST OF THE PAIN IS IN THE RIGHT SHLD, ARM INTO HAND AND RIGHT SIDE OF CORE. Present since: ABOUT 9 WEEKS AGO (APPROX OCT 02 2021). Pain Scale: WORST 5/10, LEAST 1/10. Currently: 4/10. 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 Symptoms at onset: RIGHT EAR PAIN. 3-4 weeks prior to getting it get checked out. Worse: IN THE MORNING EVERYTHING IS TIGHT AND IT FEELS LIKE IT TAKES ALL DAY TO GET EVERYTHING LOOSENDED. TRYING TO DO TOO MUCH. Better: THE DAY PROGRESS'S. Disturbed sleep: NO EXCEPT FOR GOING TO THE BATHROOM. I SLEEP IN A CHAIR. I TRY TO SLEEP IN THE BED BUT I CAN'T ROLL OVER BECAUSE I DON'T HAVE ANY CORE. Previous history/Previous treatment: NO SURGERY. NO CHEMO. REPORTS THAT THEY STARTED WITH RADIATION IMMEDIATELY. S TATES THEY COULD ONLY DO 5 DUE TO PAST RADIATION TREATMENTS AND BECAUSE OF WHERE IT WAS PER PATIENTS UNDERSTANDING. LAST RADIATION TREATMENT WAS 3 WEEKS AGO. NO PT OR OT SINCE THIS DX. EXPECTING NEXT SCAN TO BE APPROX 2 TO 3 MONTHS. PATIENT REPORTS THIS ALL STARTED IN MARCH 2021. 6 WEEKS OF CHEMO AND RADIATION FOR LUNG CANCER STAGE 3. LAST TREATMENT WAS MAY 2021. PATIENT REPORTS HE TOLERATED THOSE TREATMENTS WELL AND RECOVERED FULLY. GOT COVID SEP 15 2021 AND RECOVED IN ABOUT A WEEK WITH OUTPATIENT TREATMENT. Coughing/sneezing/straining: NEGATIVE. Gait: I GET UP AT NIGHT AND WALK TO THE BATHROOM WITH THE WALKER BUT I CARRY IT SO I DON'T CATCH IT ON ANYTHING. I GET UP 2-3 TIMES AT NIGHT TO GO TO THE BATHROOM ABOUT 20 FEET TO THE BATHROOM. PATIENT REPORTS HE FELL TWICE ABOUT A WEEK AGO. ONCE WAS IN THE MIDDLE OF THE NIGHT GETTING TANGLED UP IN THE WALKER AND ONCE TRIED TO WALK WITHOUT THE WALKER. PATIENT DENIES ANY INJURIES FROM THE FALLS. I'M JUST WEAK. Difficulty initiating urination: NOT CURRENTLY. NOT HAVING LOSS OF BOWEL OR BLADDER CONTROL. Accidents: NO. Unexplained weight loss: NO. Imaging: MULTIIPLE SCANS TO DX THE CANCER. PMH/Recent major surgery: HTN. PLOF (Prior Level of Function): UNLIMITED ACTIVITY UNTIL ABOUT 9 WEEKS AGO WHEN EAR PAIN STARTED. MOWING. REMODELING BARN AND OTHER PHYSICAL WORK. OTHER: PATIENT REPORTS HE ALSO HAD HIGH DOSES OF STEROIDS WHEN FIRST DX'D BECAUSE WEAKNESS WAS SPREADING TO LEFT SIDE. STILL ON STEROIDS BUT TAPERING OFF. - ADLs Dressing: Overhead shirt, Socks, Shoes Fasteners: Buttons Eating: Use silverware, Cut food Comments: using left hand- is assisting Bathing: Handle washcloth & soap, Wash hair, Squeeze shampoo bottle Comments: pt has walk in shower -has grab bars but is not using shower chair Grooming: Shave, Squeeze toothpaste on, Hensley teeth Comments: pt performing left handed Comments: pt lives with she is currently assisting him with ADls and IADLS. lives in ranch with a loft- pt has master bathroom and bedroom on main floor-. pt is sleeping in recliner for last 8 weeks. pt states his office is about 900feet away from the main home- pt is going to office 5-6 days a week for a few hours each day. - Pain left shoulder 5 Pain Intensity Range: 3, 8 - Objective pt ambulating with WW- states it has been 5 weeks since limited right UE and FM control increasing need of assist with ADLs and IADLs. - ROM Shoulder: right shoulder flex 40* left 165* Elbow: right 0/115 left 0/135 Forearm: right supination N pronation WNL left WNL Opposition: right 6 left 10 ROM Comments: pt limited ROM increases need of assist from with all ADls. - Strength Shoulder: right 3/5 left 5/5 Elbow: right 3/5 left 5/5 Forearm: right 3/5 left 5/5 Wrist: right 4/5 left 5/5 Drafter (Cad) Electrical: right 10# left 70# Lateral Pinch: right 2# left 14# Tripod Pinch: right unable left 10# Strength Comments: pt demo with weakness of left UE limiting functional use of left UE - Sensation Thumb: right 4.74 left 3.84 Index: right 4.93 left 3.84 Middle: right 4.93 left 3.61 Ring: right 4.74 left 3.61 Little: right 4.93 left 3.61 - Nine Hole Peg Right: unable to grasp pegs Left: left 52.43 Comments: pt demo with sig. compensatory jason. with trying to pinch pegs- - In-Hand Manipulation Finger to Palm Translation: Unable - Right, Normal - Left Palm to Finger Translation: Unable - Right, Normal - Left Shift: Unable - Right, Normal - Left Rotation: Unable - Right, Normal - Left Comments: with pts sensation deficits and poor motor control of right digits- pt is limited with functional use of right and with ADLs and IADLs at this time. - Quick DASH-Disab of Arm,Shoulder& Hand Quick DASH Score: 88.3325 - Goals Goal:: pt will demo a increase in right UE MMT 4+/5 (shoulder flex/abd, biceps/triceps) to increase use of left UE with ADLS by d/c. pt will demo a increase in right machine leather trimmer strength by 35# to increase pts use of right hand with ADLs by d/c. pt will demo a increase in right lateral pinch by 4# to increase pts ind.with ADLs and fasteners by d.c Goal:: pt will demo a increase in right shoulder flex to 160* or greater to increase pts ind. with ADLs and IADLS by d/c. pt will demo a increase in right forearm supination to 65* or greater to increase pts self feeding ability by d/c Goal:: pt will self report right shoulder pain no greater than 2/10 with use of right hand with ADLS by d/c Goal:: pt will demo the ability to write name / words legibly by d/c to increase pts ind with written communication. pt will demo the ability to manipulate buttons/zipers at CYDNEY Level by d/c to increase pts ind. with ADls by dc Goal:: pt will test on monofilaments at at 4.08 indicating sensation return - by d/c Goal:: pt will self report CYDNEY with use of ad. eq. by d/c to decrease need of assist from . Goal:: pt will demo understanding of using voice to text to decrease time spent with typing tasks by d/c Goal:: pt will demo the ability for form word legibly to communicate needs by d/c - Rehabilitation General Assessment: pt demo with a left UE weakness and limited ROM that is limiting pts IND with ADLS and IADLs. Pt also demo limited FMS that increases need of assist with eating and self care tasks. Pt would benefit from skilled OT services 2-3x week for 6 weeks to assist pt in reaching his maximal rehab potential. Pt and pts spouse agree with POC. Rehabilitation Potential: Good - Anticipated Interventions A/AAROM/PROM, Strengthening, Fine Motor Coord/Johann, Neuro Reeducation, ADL Training, Education re assistive Equipment, Education re Diagnosis, Caregiver Training - Visit Plan Frequency: 2-3x /Week Duration: 5 weeks General Plan: Therapy will initiate ROM ex, transition to strengthening and challenge pts FMS to increase his IND with ADls and IADLs. therapy will ed. pt on visual compensation when using right hand for grasping due to sign. sensation loss. ed family on ad. eq. to increase ind. and safety with ADLS. and IADLS TEXT: Thank you for the opportunity to evaluate your patient. For Medicare and Medicare HMO plans, please review the plan of care and approve it. It will need to be FAXED BACK to us at [phone] for Medicare purposes. Please let me know if there are questions or concerns regarding this plan of care. Physician Signature: Date:
--- NOTE | 2022-04-13 08:48 | HP.OT.NRP ---
SHASHA RODRIGUEZ was seen in my office for initial evaluation on 12/21/21. The following Plan of Care was established for this patient: Initial Frequency: 2-3x /Week Initial Duration: 5 weeks Anticipated Interventions: A/AAROM/PROM, Strengthening, Fine Motor Coord/Johann, Neuro Reeducation, ADL Training, Education re assistive Equipment, Education re Diagnosis, Caregiver Training This patient was last seen in our office 12/21/21. Pertinent comments regarding their Occupational therapy will appear below: This pt was seen for Carisa galeana and he cancelled his scheduled apts. pt d/c due to time lapse in services and no further apts scheduled. At this point I will be discontinuing this patient from occupational therapy. I would be happy to see this patient again in the future if found appropriate by the physician. Thank you! Carolyn Tyson, OTR/L, CHT
== END 2021-12-21 19:00 | disposition home or self-care (01) ==
LOC: OT 14:00
PROVIDERS: PCP Family Medicine; Referring Provider Student in an Organized Health Care Education/Training Program; Visit Provider Student in an Organized Health Care Education/Training Program
DX: C72.0 Malignant neoplasm of spinal cord; R53.1 Weakness
CPT/HCPCS: 97110; 97112; 97162; 97166; 97167

== ENCOUNTER 2021-12-23 01:23 | Observation (INO) | payer MEDICARE, BC, SELFPAY ==
[2021-03-14 11:21] VITALS: BMI 29.2
[2021-12-23] VITALS (11 sets, daily range): BP systolic 102–166; BP diastolic 62–87; PULSE 85–111; RESP 16–24; TEMP 36.5–37.1; O2SAT 93–98; BMI 30.4; BMI 30.5
[2021-12-23 02:11] LABS: Bacteria 0 SEEN /hpf (None Seen); Mucous, Urine 0 SEEN /hpf (<or=2+); Red Blood Cells-Urine 0 SEEN /hpf (0-5); Squamous Epithelial Cells - UA 0 SEEN /hpf (0-5); White Blood Cells 0 SEEN /hpf (0-5)
--- NOTE | 2021-12-23 02:12 | EX.ED.DYSGE1 ---
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 He states he did radiation therapy for 5 days approximately 4 weeks ago. He states after radiation therapy initially he had improvement in strength of his right arm and leg as well as sensation. He states that over the last 1 to 2 days however he has noticed that he has had generalized weakness to the point where it makes it difficult to get around with his cane as he normally does. This evening the weakness was so intense that he cannot even hold himself up. He states that he was trying to go to the bathroom when he was overcome by the weakness and lowered himself to the ground. He denies striking his head or any loss of conscious or blood thinner use. He states his was right there with him and she confirms this story. He was only on the ground for approximately 15 to 20 minutes as they called family and they were able to get him up. However with the patient's worsening generalized weakness and the fact he feels that he is regressing instead of improving he comes in for evaluation [facility] Medical History Acute respiratory failure with hypoxia Contact with and (suspected) exposure to other viral communicable diseases Dyspnea Ear pain, right Encounter for education Former smoker Hemoptysis Hypertension Lung mass NSCLC of left lung Odynophagia Pneumonia Shortness of breath Home Medications lisinopril 10 mg PO DAILY 03/13/21 [History Last Taken 03/23/21 19:00] albuterol sulfate 90 mcg/actuation aerosol inhaler 1 - 2 puff INHALATION Q6H PRN #8.5 g 09/18/21 [Rx Last Taken Unknown] tiotropium 2.5 mcg-olodaterol 2.5 mcg/actuation mist for inhalation 2 inh INHALATION DAILY #4 g 10/19/21 [Rx Last Taken Unknown] Allergy/AdvReac Type Severity Reaction Status Date / Time No Known Allergies Allergy Verified 12/19/21 13:15 Family History Father Alzheimers disease Mother Skin cancer Surgical History S/P bronchoscopy Social History household members: spouse Smoking Status: Former smoker pack-years: 25 substance use type: does not use ROS ROS ED Constitutional Constitutional ED: Denies chills or fever(s) Eyes Eyes: Denies change in vision ENT ENT ED: Denies rhinorrhea or sore throat Cardiovascular Cardiovascular: Denies chest pain Respiratory/Chest Respiratory/Chest: Reports cough and dyspnea Gastrointestinal Gastrointestinal: Denies abdominal pain, diarrhea, nausea or vomiting Genitourinary Genitourinary ED: Denies dysuria Musculoskeletal Musculoskeletal: Denies myalgias Integumentary Denies rash Neurologic Neurologic: Reports weakness; Denies headache(s) Hematologic/Lymphatic Hematologic/Lymphatic: Denies easy bleeding or easy bruising EXAM Physical Exam Const Vital Signs: 12/23/21 01:24 12/23/21 01:26 12/23/21 02:27 Temperature 98.3 F 98.3 F Temperature Source Oral Temporal Pulse Rate 85 85 Respiratory Rate 20 H 20 H Respiratory Effort Normal Non-Labored Respiratory Pattern Normal Blood Pressure 166/82 H 166/82 H Blood Pressure Mean 110 110 Pulse Ox 95 95 Oxygen Delivery Method Room Air Room Air 12/23/21 03:36 Temperature Temperature Source Pulse Rate Respiratory Rate 16 Respiratory Effort Respiratory Pattern Blood Pressure Blood Pressure Mean Pulse Ox Oxygen Delivery Method Positive well nourished and well developed General Appearance ED: well developed HEENT Reports dry mucous membranes Mouth ED: Yes dry mucous membranes Mouth: dry mucous membranes Eyes PERRL and EOMs intact bilaterally General Eye ED: Negative for pale conjunctiva Neck supple Resp normal respiratory effort Resp Narrative: Breath sounds are diminished throughout with faint rhonchi noted in bilateral bases but no signs of respiratory distress Cardio regular rate and regular rhythm Rate: other Other Details: Radial pulses are plus 2 out of 4 bilaterally are equal and symmetric GI normal to inspection, nondistended, normoactive bowel sounds, non-tender, non-distended and no masses GI Narrative: No voluntary guarding or rigidity no pulsatile mass Auscultation: normoactive bowel sounds Palpation: soft Extremity Extremity Narrative: Patient has full active range of motion of his left arm and leg. He has strength plus 4 out of 5 of the right arm and only plus 3 out of 5 of the right leg which is consistent with his recent cervical spine tumor diagnosis. Patient does have bilateral pitting edema it is +2 on the right and +1 on the left but negative Homans' sign bilaterally. Neuro oriented x3 and CN's II-XII intact bilaterally Neuro Narrative: Patient has changes in strength to the right arm and leg compared to left consistent with his recent tumor diagnosis but otherwise normal neurologic exam without focal deficit Sensorium / Orientation: alert Psych mental status grossly normal Skin no rashes or lesions noted Skin Narrative: Skin turgor is slightly increased without overlying soft tissue changes to suggest trauma or infection MDM MDM MDM Narrative Medical decision making narrative: Patient presented to the ER slightly hypertensive otherwise with stable vitals. He does have asymmetric weakness to his right arm and leg with this is now chronic based on his recent history of spinal cord tumor. With him stating he received his radiation 4 weeks ago I felt that this was a radiation reaction it would have occurred sooner rather than later and therefore have concern for infection or electrolyte abnormality as a cause of his weakness. Chest x-ray revealed no acute lung pathology urine sample is free of infection and COVID test was. Blood work also shows stable H&H with normal potassium creatinine magnesium and TSH. Therefore at this time there is not an obvious cause for his increased weakness. However the patient is unable to ambulate secondary to this and his is not able to care for him at home. Therefore it is not safe for him to return home as he could fall once again hurt himself or even his and therefore he will be placed in the hospital for further evaluation and possible rehab/correction placement. Lab Data Attestation: I reviewed the patient's lab results. Labs: Laboratory Results - last 24 hr 12/23/21 12/23/21 12/23/21 02:05 02:20 02:20 WBC 7.3 RBC 4.53 L Hgb 14.0 Hct 41.6 MCV 91.8 MCH 30.9 MCHC 33.7 RDW Std Deviation 46.8 H RDW Coeff of Samantha 13.9 Plt Count 169 MPV 8.7 Immature Gran % (Auto) 1.200 H Neut % (Auto) 77.3 H Lymph % (Auto) 10.2 L [place] % (Auto) 10.3 H Eos % (Auto) 0.7 Baso % (Auto) 0.3 Absolute Neuts (auto) 5.6 Absolute Lymphs (auto) 0.74 L Nucleated RBC % 0 Sodium 139 Potassium 3.8 Chloride 107 Carbon Dioxide 28.0 Anion Gap 4 L BUN 22 H Creatinine 0.81 Estim Creat Clear Calc 95.55 Est GFR (MDRD) Af Amer 123 Est GFR (MDRD) Non-Af 102 BUN/Creatinine Ratio 27.2 H Glucose 105 Calcium 9.1 Magnesium 2.4 TSH 3.65 Urine Color Yellow Urine Clarity Clear Urine pH 6.5 Ur Specific [place] 1.015 Urine Protein Negative Urine Glucose (UA) Normal Urine Ketones Negative Urine Occult Blood Negative Urine Nitrite Negative Urine Bilirubin Negative Urine Urobilinogen Normal Ur Leukocyte Esterase Negative Urine RBC 0 SEEN Urine WBC 0 SEEN Ur Squamous Epith Cells 0 SEEN Amorphous Sediment 1+ Urine Bacteria 0 SEEN Urine Mucus 0 SEEN Radiography Diagnostic Testing: Clinical Impression(s) from Imaging Studies Chest X-Ray 12/23/21 03:10 IMPRESSION: No acute cardiopulmonary process. Electronically Signed: Aniceto Falcon MD at 3:29 EST Tel , Service support , Discharge Plan Triage Chief Complaint: Fall Other Complaint: Weakness ED Provider: Martinez Baltazar Dx/Rx/DC Orders Clinical Impression: Generalized weakness, Inability to walk, Spinal cord neoplasm Primary Care Provider: Des Che Disposition Disposition: Acute Care Hospital [facility]
[2021-12-23 02:13] LABS: Color, Urine Yellow (Yellow); Glucose, Dipstick Normal (Normal); Ketone-Dipstick Negative (Negative); Leukocyte Esterase-Dipstick Negative /ul (Negative); Nitrite-Dipstick Negative (Negative); Occult Blood-Urine Negative /ul (Negative); Protein-Dipstick Negative (Negative); Specific Gravity, Urine 1.015 (1.002-1.030); Urine Bilirubin Dipstick Negative (Negative); Urine Clarity Clear (Clear); Urine Urobilinogen Normal (Normal); Urine pH 6.5 (5.0 - 8.0)
[2021-12-23 02:26] LABS: Amorphous Sediment 1+
[2021-12-23] MEDS: 0.9% Normal Saline 1,000 ML 999 ML IV (02:26)
[2021-12-23 02:31] LABS: Absolute Lymphocyte Count 0.74 X10^3/uL (0.83-4.51); Absolute Neutrophil Count 5.6 X10^3/uL (2.0-7.7); Basophil# 0.02 X10^3/uL; Basophil% 0.3 % (0-1); Eosinophil# 0.05 X10^3/uL; Eosinophils% 0.7 % (0-5); Hematocrit 41.6 % (40-54); Lymphocyte # 0.74 X10^3/ul (0.83-4.51); Lymphocyte % 10.2 % (19-41); Mean Corp Hgb Conc 33.7 g/dL (32-36); Mean Corpuscular Hgb 30.9 pg (27.0-32.0); Mean Corpuscular Volume 91.8 fL (80-94); Mean Platelet Vol. 8.7 fl (6.2-12.0); Monocyte# 0.75 X10^3/uL; Monocyte% 10.3 % (0-10); NRBC Flagged by Analyzer 0 % (0-5); Neutrophil # 5.64 X10^3/uL (2.7-7.7); Neutrophil % 77.3 % (47-70); Platelet Count 169 K/mm3 (150-450); RBC Distribution Width CV 13.9 % (11.6-14.6); RBC Distribution Width SD 46.8 fl (35.1-43.9); Red Blood Count 4.53 M/mm3 (4.6-6.2); White Blood Count 7.3 K/mm3 (4.4-11.0)
[2021-12-23 02:59] LABS: Anion Gap 4 (5-15); BUN 22 mg/dL (7-18); BUN/Creat Ratio 27.2 RATIO (10-20); Calcium,Total 9.1 mg/dL (8.5-10.1); Chloride 107 mmol/L (98-107); Creatinine, Serum 0.81 mg/dL (0.70-1.30); EST Glomerular Filtration Rate 102 mL/min (>60); Est Glom Filt Rate - Afr Amer 123 mL/min (>60); Estimated Creatinine Clearance 95.55 ml/min; Glucose 105 mg/dL (74-106); Magnesium 2.4 mg/dL (1.6-2.6); Potassium 3.8 mmol/L (3.5-5.1); Sodium Level 139 mmol/L (136-145); Thyroid Stim Hormone (TSH) 3.65 uIU/mL (0.358-3.74)
--- NOTE | 2021-12-23 03:10 | RAD_ITS ---
STUDY: X-RAY CHEST REASON FOR EXAM: Male, 66 years old. cough TECHNIQUE: 1 view COMPARISON: 11/13/2021 FINDINGS: Right-sided implanted port is in stable position. Cardiomediastinal silhouette is unremarkable. Costophrenic angles are sharp. Lungs are clear. The trachea is midline. There is no pneumothorax. The bones are grossly intact. RAD/Chest 1 View (Portable) IMPRESSION: No acute cardiopulmonary process. Electronically Signed: Aniceto Falcon MD at 3:29 EST Tel , Service support ,
[2021-12-23] MEDS: Ketorolac 15 MG/ML Vial IV (03:35)
--- NOTE | 2021-12-23 03:43 | PCM.HP.STD ---
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 Reportedly he had a paralysis of his right upper and his right lower extremity but with radiation of the spinal mass he has regained some strength in his right upper and right lower extremity. He has been using a walker and he has been having physical therapy. However in the past 1 week he may have he has been progressively weak as above. On the day of this presentation after his helped him to the bathroom he was so weak that he fell and he could not get up. He reports numbness in his right extremities. Further he reports pain in his right extremities. At this point his is unable to help him further at home. He was on Decadron but he was slowly weaned off last time he took Decadron was on , 12/21/2021. [facility] Medical History Acute respiratory failure with hypoxia Contact with and (suspected) exposure to other viral communicable diseases Dyspnea Ear pain, right Encounter for education Former smoker Hemoptysis Hypertension Lung mass NSCLC of left lung Odynophagia Pneumonia Shortness of breath Home Medications lisinopril 10 mg PO DAILY 03/13/21 [History Last Taken 03/23/21 19:00] albuterol sulfate 90 mcg/actuation aerosol inhaler 1 - 2 puff INHALATION Q6H PRN #8.5 g 09/18/21 [Rx Last Taken Unknown] tiotropium 2.5 mcg-olodaterol 2.5 mcg/actuation mist for inhalation 2 inh INHALATION DAILY #4 g 10/19/21 [Rx Last Taken Unknown] Allergy/AdvReac Type Severity Reaction Status Date / Time No Known Allergies Allergy Verified 12/19/21 13:15 Family History Father Alzheimers disease Mother Skin cancer Surgical History S/P bronchoscopy Social History household members: spouse Smoking Status: Former smoker pack-years: 25 substance use type: does not use ROS ROS Narrative Constitutional: Denies fever, chills, anorexia and change in weight Eyes: Denies blurry vision, change in eye color, change in vision, discharge from eye(s), double vision, erythema, eye pain, loss of vision or other HEENT: Denies abnormal hearing, dysphagia, ear pain, epistaxis, headache(s), hearing loss, nasal congestion, nasal discharge, post nasal drip, sinus pressure, sore throat or other Cardiovascular: Denies chest pain or palpitations. Denies dyspnea on exertion, orthopnea and paroxysmal nocturnal dyspnea Respiratory/Chest: Denies cough, excessive phlegm production, shortness of breath with exertion and wheezing Gastrointestinal: Denies abdominal pain, coffee ground emesis, constipation, diarrhea, dyspepsia, hematemesis, hematochezia, loose stools, melena, nausea, vomiting or other Genitourinary: Denies burning urination, difficulty urinating, dysuria, hematuria, nocturia, urinary frequency, urinary hesitancy, urinary incontinence, urinary urgency or other Musculoskeletal: Reports pain in right upper and right lower extremities. Denies arthralgias, back pain, joint pain, joint stiffness, joint swelling, neck pain or other Neurologic: Reports numbness in right upper and right lower extremities. Tingling sensation of the toes of his left foot. Psychiatric: Denies anxiety, depression, homicidal ideation, suicidal ideation or other Endocrinology: Denies change in body appearance, cold intolerance, excessive sweating, heat intolerance, polydipsia, polyuria or other Hematologic/Lymphatic: Denies anemia, easy bleeding, easy bruising, lymphadenopathy or other Integumentary: Denies rashes Allergic/Immunologic: Denies rhinitis, hives, eczema, asthma or other Vital Signs Vital Signs Vital Signs: 12/23/21 01:24 12/23/21 01:26 12/23/21 02:27 Temperature 98.3 F 98.3 F Temperature Source Oral Temporal Pulse Rate 85 85 Respiratory Rate 20 H 20 H Respiratory Effort Normal Non-Labored Respiratory Pattern Normal Blood Pressure 166/82 H 166/82 H Blood Pressure Mean 110 110 Pulse Ox 95 95 Oxygen Delivery Method Room Air Room Air 12/23/21 03:36 Temperature Temperature Source Pulse Rate Respiratory Rate 16 Respiratory Effort Respiratory Pattern Blood Pressure Blood Pressure Mean Pulse Ox Oxygen Delivery Method Weight Weight: 99.2 kg Body Mass Index (BMI) 30.4 Physical Exam Narrative Physical exam: General: Well-nourished, well-developed. Head: Normocephalic, atraumatic, no tenderness Eyes: PERRLA, EOMI ENT, no trauma, moist mucous membranes, no rhinorrhea Neck: Nontender, full range of motion, no spinal tenderness, deformities, step-off CVS: Regular rate and rhythm. S1-S2 present. No murmur, gallop or rub. Respiratory : clear to auscultation bilaterally, chest wall nontender, no wheezing Abdomen: Soft, nontender, nondistended, normal bowel sounds, no masses : Deferred Back: Nontender, no CVA tenderness, no midline spinal tenderness, deformities, step-offs Extremities: Nontender full range of motion, no trauma Skin: Normal color, no trauma, abrasions Neuro: Alert, oriented, cranial nerves II through XII grossly intact. Sensory changes of the right leg. Strength in right leg 3 out of 5. Strength in right arm 2 out of 5. Strength in left upper and left lower extremity 5 out of 5. Psychiatry: Normal mood. Normal affect. Not depressed. Not anxious. Results Lab / Micro Data Result Diagrams: 12/23/21 02:20 12/23/21 02:20 Labs: Laboratory Results - last 24 hr 12/23/21 02:05: Urine Color Yellow, Urine Clarity Clear, Urine pH 6.5, Ur Specific [place] 1.015, Urine Protein Negative, Urine Glucose (UA) Normal, Urine Ketones Negative, Urine Occult Blood Negative, Urine Nitrite Negative, Urine Bilirubin Negative, Urine Urobilinogen Normal, Ur Leukocyte Esterase Negative, Urine RBC 0 SEEN, Urine WBC 0 SEEN, Ur Squamous Epith Cells 0 SEEN, Amorphous Sediment 1+, Urine Bacteria 0 SEEN, Urine Mucus 0 SEEN 12/23/21 02:20: Sodium 139, Potassium 3.8, Chloride 107, Carbon Dioxide 28.0, Anion Gap 4 L, BUN 22 H, Creatinine 0.81, Estim Creat Clear Calc 95.55, Est GFR (MDRD) Af Amer 123, Est GFR (MDRD) Non-Af 102, BUN/Creatinine Ratio 27.2 H, Glucose 105, Calcium 9.1, Magnesium 2.4, TSH 3.65 12/23/21 02:20: WBC 7.3, RBC 4.53 L, Hgb 14.0, Hct 41.6, MCV 91.8, MCH 30.9, MCHC 33.7, RDW Std Deviation 46.8 H, RDW Coeff of Samantha 13.9, Plt Count 169, MPV 8.7, Immature Gran % (Auto) 1.200 H, Neut % (Auto) 77.3 H, Lymph % (Auto) 10.2 L, [place] % (Auto) 10.3 H, Eos % (Auto) 0.7, Baso % (Auto) 0.3, Absolute Neuts (auto) 5.6, Absolute Lymphs (auto) 0.74 L, Nucleated RBC % 0 Micro: Microbiology 12/23/21 01:55 Nasal Secretion SARS-CoV-2 Antigen (Rapid) - Final Radiology Impression Chest X-Ray 12/23/21 03:10 IMPRESSION: No acute cardiopulmonary process. Electronically Signed: Aniceto Falcon MD at 3:29 EST Tel , Service support , Assessment & Plan Assessment/Plan (1) Generalized weakness: (2) Spinal cord neoplasm: (3) Numbness and tingling: PLAN: Generalized weakness, numbness and tingling secondary to spinal cord neoplasm CXR independently showed no acute cardiopulmonary process. I agree with radiologist interpretation. Discussed with patient that will start patient on low-dose of gabapentin. Gabapentin 3 times daily ordered. Toradol IV ordered emergent department and continued on a as needed basis. TSH done at the emergency department was normal. White count is normal at 7.3 but with bandemia of 1.2%; neutrophilia; and lymphopenia and monocytosis. Lymphopenia and monocytosis is chronic. PT and OT to work with patient for strengthening balance training and make recommendations. Case management consult. Elevated BUN BUN on presentation was 22. BUN over creatinine 27.2. Completed about 2 days ago that be contributing. Gentle IV hydration. Trend BMP. Weak cough Reportedly on mucinex 1,200 mg twice daily. Will continue. Add Tesefrainon Truman DVT Prophylaxis:Subcutaneous Lovenox ordered. Charges/Coding Multi Select Codes Visit Charges Observation E&M Codin Initial observation care L2
[2021-12-23] MEDS: 0.9% Normal Saline 1,000 ML 75 ML IV ×2 (05:58→19:00)
[2021-12-23] MEDS: Benzonatate 100 MG Capsule PO ×3 (05:58→19:27)
[2021-12-23] MEDS: Gabapentin 100 MG Capsule PO ×3 (05:58→16:40)
[2021-12-23] MEDS: Acetaminophen 325 MG Tablet 650 MG PO ×2 (06:00→21:22)
[2021-12-23] MEDS: Ipratropium/Albuterol Sulfate 3 ML AMPUL.NEB INHALATION ×3 (07:22→19:50)
[2021-12-23] MEDS: Enoxaparin 40 MG/0.4 ML Syringe SC (09:05)
[2021-12-23] MEDS: guaiFENesin 1,200 MG Tablet 1200 MG PO ×2 (09:05→21:22)
[2021-12-23] MEDS: Lisinopril 10 MG Tablet PO (09:06)
[2021-12-23] MEDS: dexAMETHasone 2 MG TABLET PO (09:08)
--- NOTE | 2021-12-23 10:45 | CASEMGMT ---
RN JT Face to Face with patient for initial transition planning/care coordination assessment. RN CM introduced self and role at [facility]. Patient lying in bed, alert and oriented. Patient willing to participate in assessment and is able to answer all questions appropriately. Care providers, pharmacy, and demographics verified. Patient wishes to discharge home but if recommended would go to SNF, preferably TCU. Will monitor progress with therapy. Patient states he has no further needs or concerns at this time. CM to follow for discharge planning needs that may arise. PCP: Chinedu Specialists: Madi radiolgoist; Jaime, oncologist; Jose, ward secretary [facility]erred Pharmacy: [facility] Insurance: [employer] Prescription Benefit: yes Living Will/HPOA: none LNOK: Living Arrangements: Patient lives with in single story home with 2 steps and railing to enter the home. Patient states he was independent at home but has been getting progressively weaker since participating in outpatient therapy. Transportation: DME/HHC: Patient states he has shower chair, walker, grab bars at home. No previous HHC or SNF. Has been attending outpatient therapy at [facility]. Disposition Plan: TBD by course of treatment and progress with therapy. Octavia SANCHEZN, RN, CM
--- NOTE | 2021-12-23 11:33 | PN.HOSP_ITS ---
Hospitalist Note Patient is a 66-year-old male who presented to the ED at [facility] on 12/23/2021 after suffering a fall secondary to weakness. Patient's history is complicated by a cervical neoplasm for which he is being seen by Dr. Barraza at [facility]. Patient has been receiving outpatient physical therapy, which he reports is not really improving his weakness. Would like to be evaluated for possible placement in rehab facility. PT/OT eval pending. Case management consult ordered. Patient seen by Jamal Everett PA-C, under the supervision of Dr. Andrew. Time spent on patient care: 8 minutes.
--- NOTE | 2021-12-23 15:29 | CM.ED ---
Addendum entered by Leisa Barnard 12/23/21 16:00: Patient's first choice 1) TCU 2) [facility] and 3) [facility] in [place] not [place]. Original Note: DWAYNE Note Referral Source: YULIANA WATERS Referral Reason: Discharge Planning SW met with patient and his . First choice for rehab would be TCU, then [facility] and then [facility]. SW provided patient and his with information on TCU and list of [facility] and [facility] SNF. DWAYNE sent email to Wanda in TCU that patient would like to be admitted to TCU. Plan: To be determined Leisa MERCHANT
--- NOTE | 2021-12-23 16:00 | CASEMGMT ---
YULIANA WATERS in to complete WHALEY form with patient. YULIANA WATERS explained WHALEY form, patient voiced understanding. Patient signed WHALEY for and filed in chart. Patient provided with copy of signed WHALEY form. Patient had no further questions or concerns at this time.
[2021-12-24] VITALS (9 sets, daily range): BP systolic 102–131; BP diastolic 63–79; PULSE 75–108; RESP 0–23; TEMP 36.5–37.2; O2SAT 92–98
[2021-12-24] MEDS: Benzonatate 100 MG Capsule PO ×4 (00:04→17:45)
[2021-12-24 05:03] LABS: Absolute Lymphocyte Count 0.89 X10^3/uL (0.83-4.51); Absolute Neutrophil Count 6.2 X10^3/uL (2.0-7.7); Basophil# 0.01 X10^3/uL; Basophil% 0.1 % (0-1); Eosinophil# 0.06 X10^3/uL; Eosinophils% 0.8 % (0-5); Hematocrit 37.9 % (40-54); Lymphocyte # 0.89 X10^3/ul (0.83-4.51); Lymphocyte % 11.1 % (19-41); Mean Corp Hgb Conc 34.3 g/dL (32-36); Mean Corpuscular Hgb 31.3 pg (27.0-32.0); Mean Corpuscular Volume 91.1 fL (80-94); Mean Platelet Vol. 8.5 fl (6.2-12.0); Monocyte# 0.75 X10^3/uL; Monocyte% 9.4 % (0-10); NRBC Flagged by Analyzer 0 % (0-5); Neutrophil # 6.22 X10^3/uL (2.7-7.7); Neutrophil % 77.8 % (47-70); Platelet Count 155 K/mm3 (150-450); RBC Distribution Width CV 14.3 % (11.6-14.6); Red Blood Count 4.16 M/mm3 (4.6-6.2)
[2021-12-24 05:31] LABS: Anion Gap 6 (5-15); BUN 18 mg/dL (7-18); BUN/Creat Ratio 34.8 RATIO (10-20); Calcium,Total 8.5 mg/dL (8.5-10.1); Chloride 108 mmol/L (98-107); Creatinine, Serum 0.52 mg/dL (0.70-1.30); EST Glomerular Filtration Rate 170 mL/min (>60); Est Glom Filt Rate - Afr Amer 206 mL/min (>60); Estimated Creatinine Clearance 77.39 ml/min; Glucose 95 mg/dL (74-106); Potassium 3.9 mmol/L (3.5-5.1); Sodium Level 139 mmol/L (136-145)
[2021-12-24] MEDS: Acetaminophen 325 MG Tablet 650 MG PO ×2 (05:39→20:44)
[2021-12-24] MEDS: 0.9% Normal Saline 1,000 ML 75 ML IV ×2 (07:31→20:20)
[2021-12-24] MEDS: Ipratropium/Albuterol Sulfate 3 ML AMPUL.NEB INHALATION ×3 (07:55→19:28)
[2021-12-24] MEDS: dexAMETHasone 2 MG TABLET PO (08:22)
[2021-12-24] MEDS: Gabapentin 100 MG Capsule PO ×3 (08:22→16:37)
[2021-12-24] MEDS: guaiFENesin 1,200 MG Tablet 1200 MG PO ×2 (09:56→20:21)
[2021-12-24] MEDS: Enoxaparin 40 MG/0.4 ML Syringe SC (09:56)
[2021-12-24] MEDS: Lisinopril 10 MG Tablet PO (09:57)
[2021-12-24] MEDS: Senna Tablet 1 TABLET PO (10:28)
--- NOTE | 2021-12-24 10:54 | PN.HOSP_ITS ---
Documented by User: Jamal FOX 12/24/21 11:08 Subjective Subjective Patient is a 66-year-old male comfortably resting in a chair, alert and orient x3. Patient denies development of any new symptoms overnight. Does not appear in acute distress. Objective Data Objective Data Vital Signs: Vital Signs Temp Pulse Resp BP Pulse Ox 97.7 F L 78 0 L 119/79 92 12/24/21 07:44 12/24/21 07:55 12/24/21 07:55 12/24/21 07:44 12/24/21 07:55 Oxygen Delivery Method Room Air Weight: 219 lb 1.6 oz Body Mass Index (BMI) 30.5 Intake & Output: Intake and Output for Last 24 Hours 12/22/21 12/23/21 12/24/21 23:59 23:59 23:59 Intake Total 1977.5 / 1977.5 1838.75 / 1838.75 Output Total 1550 / 1550 1350 / 1350 Balance 427.5 / 427.5 488.75 / 488.75 Lab / Micro Data Result Diagrams: 12/24/21 04:46 12/24/21 04:46 Labs: Laboratory Results - last 24 hr 12/24/21 04:46: WBC 8.0, RBC 4.16 L, Hgb 13.0, Hct 37.9 L, MCV 91.1, MCH 31.3, MCHC 34.3, RDW Std Deviation 48.0 H, RDW Coeff of Samantha 14.3, Plt Count 155, MPV 8.5, Immature Gran % (Auto) 0.800, Neut % (Auto) 77.8 H, Lymph % (Auto) 11.1 L, Gillespie % (Auto) 9.4, Eos % (Auto) 0.8, Baso % (Auto) 0.1, Absolute Neuts (auto) 6.2, Absolute Lymphs (auto) 0.89, Nucleated RBC % 0 12/24/21 04:46: Sodium 139, Potassium 3.9, Chloride 108 H, Carbon Dioxide 25.0, Anion Gap 6, BUN 18, Creatinine 0.52 L, Estim Creat Clear Calc 77.39, Est GFR (MDRD) Af Amer 206, Est GFR (MDRD) Non-Af 170, BUN/Creatinine Ratio 34.8 H, Glucose 95, Calcium 8.5 Micro: Microbiology 01/22/22 01:55 Nasal Secretion SARS-CoV-2 Antigen (Rapid) - Final Physical Exam Const alert, oriented x3 and no apparent distress HEENT head/scalp atraumatic and moist oral mucous membranes Head and Scalp: normocephalic Eyes PERRL, EOMs intact bilaterally and conjunctivae normal Neck no lymphadenopathy, supple and no JVD Resp normal respiratory effort, no retractions and no use of accessory muscles Cardio regular rate, regular rhythm and no JVD GI normal to inspection, nondistended, normoactive bowel sounds, soft to palpation and non-tender Extremity normal to inspection, full ROM and no clubbing, cyanosis or edema Skin no rashes or lesions noted, no wounds and skin turgor normal Neuro CN's II-XII intact bilaterally Psych affect normal Assessment & Plan Assessment/Plan (1) Generalized weakness: (2) Spinal cord neoplasm: (3) Inability to walk: PLAN: Day 1 Discharge planning: To be determined, case management consult for possible placement to TCU. 1) generalized weakness Complicated by treatments for primary lung cancer and metastatic spinal coard neoplasm. Patient has attempted outpatient therapy which she reports that it improved some, but patient believes he would benefit from skilled therapy at a rehab facility. PT OT saskia did recommend skilled therapy for patient. Case management consulted for possible placement to TCU. Continue Decadron. 2 )NSCLC of left lung Follows w/ Dr. Sandoval, completed chemotherapy/radiation in May 2021. Continue to follow with Dr. Sandoval. Continue breathing treatments. 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 Barraza at [facility]. Continue to follow with Dr. Barraza. DVT prophylaxis - Lovenox Patient seen by Jamal Everett PA-C, under the supervision of Dr. Andrew. Time spent on patient care: 7 minutes. Documented by User: Dr. Isai Andrew MD 12/24/21 16:04 Objective Data Lab / Micro Data Result Diagrams: 12/24/21 04:46 12/24/21 04:46 Charges/Coding Addendum Addendum: Dr. Andrew: I personally reviewed the chart and examined the patient, and agree with the above findings. 66-year-old male who was diagnosed with non-small cell lung cancer back in March 2021 presents to the hospital with lower extremity weakness. He had undergone radiation and chemotherapy as well as removal he states the cancer that was in his bronchus and was doing fine until he was found to have a C2 spinal cord lesion that was consistent with a spinal cord met from his cancer. He underwent radiation within the last month or so and had been on Decadron since that time. He had just discontinued his Decadron about 5 days prior to admission when he developed this weakness. He also has been having some right upper extremity pain and weakness as well. We restarted him back on Decadron 2 mg daily as this was his last dose and he states that it was effective. He is also started on gabapentin as well. We will undergo PT/OT for evaluation and if necessary may need to consult radiation oncology on Saturday for input. He is okay with proceeding with halfway placement if necessary and I did discuss with him today at length about advanced care planning for about 20 minutes in terms of the need for possible palliative care once discharged from SNF. Clinical time spent in all aspects of patient care: 25 minutes Visit Charges OBSV E&M: 11690 Subsequent observation care L2 Procedures Hospitalists Procedures: 45775 Advncd Care Plan 30 Min
[2021-12-25] MEDS: Benzonatate 100 MG Capsule PO ×3 (00:15→11:45)
[2021-12-25 00:17] VITALS: BP 108/75; PULSE 86; RESP 18; TEMP 36.4; O2SAT 95
[2021-12-25] MEDS: Acetaminophen 325 MG Tablet 650 MG PO ×2 (04:47→11:45)
[2021-12-25 04:49] VITALS: BP 110/72; PULSE 87; RESP 18; TEMP 36.7; O2SAT 97
[2021-12-25 07:13] VITALS: PULSE 84; RESP 18; O2SAT 93
--- NOTE | 2021-12-25 07:24 | PCM.PN.HOSP ---
Objective Data Objective Data Vital Signs: Vital Signs Temp Pulse Resp BP Pulse Ox 98.0 F 84 18 110/72 93 12/25/21 04:49 12/25/21 07:13 12/25/21 07:13 12/25/21 04:49 12/25/21 07:13 Oxygen Delivery Method Room Air Weight: 219 lb 1.6 oz Body Mass Index (BMI) 30.5 Intake & Output: Intake and Output for Last 24 Hours 12/23/21 12/24/21 12/25/21 23:59 23:59 23:59 Intake Total 1977.5 / 1977.5 3700.00 / 3700.00 200 / 200 Output Total 1550 / 1550 2950 / 2950 750 / 750 Balance 427.5 / 427.5 750.00 / 750.00 -550 / -550 Lab / Micro Data Result Diagrams: 12/24/21 04:46 12/24/21 04:46 Micro: Microbiology 12/23/21 01:55 Nasal Secretion SARS-CoV-2 Antigen (Rapid) - Final
[2021-12-25 08:25] VITALS: BP 151/88; PULSE 96; RESP 18; TEMP 36.5; O2SAT 92
[2021-12-25] MEDS: Enoxaparin 40 MG/0.4 ML Syringe SC (08:28)
[2021-12-25] MEDS: Gabapentin 100 MG Capsule PO ×2 (08:28→11:45)
[2021-12-25] MEDS: Lisinopril 10 MG Tablet PO (08:28)
[2021-12-25] MEDS: dexAMETHasone 2 MG TABLET PO (08:28)
[2021-12-25] MEDS: 0.9% Normal Saline 1,000 ML 75 ML IV (08:33)
--- NOTE | 2021-12-25 08:48 | CASEMGMT ---
Addendum entered by Janey Cuenca 12/25/21 09:25: Social Work TCU can take pt when ready. SW let physician and RN know, will let pt know shortly. RAMÍREZ Mercedes Original Note: Social Work SW called Wanda in TCU and left a message regarding bed availability for this pt. SW will continue to follow. RAMÍREZ Mercedes
[2021-12-25] MEDS: guaiFENesin 1,200 MG Tablet 1200 MG PO (08:50)
--- NOTE | 2021-12-25 09:50 | CASEMGMT ---
Addendum entered by Janey Cuenca 12/25/21 11:52: SW faxed over all discharge paperwork to TCU. Pt to TCU today, convalescent stay, skilled level of care. RAMÍREZ Mercedes Original Note: Social Work SW let pt know that TCU can take him, pt in agreement w/pt. Pt okay w/SW calling his to let her know. SW called , let he know, she is also in agreement. RAMÍREZ Mercedes
--- NOTE | 2021-12-25 11:19 | TREXTCAR_ITS ---
Diet 12/23/21 05:23 Diet: Regular - General Food consistency:: Regular Liquid Consistency:: Regular/Thin Routine Orders/Code Status Enema Type: Fleetz Enema Frequency: Daily PRN Suppository Type: Dulcolax 10mg Suppository Frequency: Daily PRN Keep PO Greater than or Equal to (%): 91 Routine Lab Work: - (Repeat CBC, BMP within 1 week or per TCU physician disc retion.) Code Status: Full Code Suggestions for Active Care Change Position every (hours): 2 Hours to sit in a chair: 4 Times a day to sit in chair: 3 Therapies Weight Bearing: Weight bearing as tolerated (High fall risk with spinal metastatic lesion, does not walk.) Physical Therapy: Eval and Treat Occupational Therapy: Eval and Treat Problem/Diagnosis (1) Generalized weakness: Status: Acute (2) Spinal cord neoplasm: Status: Acute (3) Inability to walk: Status: Acute Allergies/Procedures Done in Hospital Allergies No Known Allergies Allergy (Verified 12/19/21 13:15) Procedures: None Type of Care/Length of Stay Estimated LOS: Convalescent Care Less Than 30 days Type of Care Needed: Skilled Rehab Potential: Good Prognosis: Good Additional Orders/Day of Discharge Additional Orders: (1) Encourage HOB, (2) IS 10/hr 7a-7p, (3) Fall precautions, (4) q2 hour side changes and off loading, (5) Aggressive barrier cream/skin care. Day of Discharge: 12/25/21 Discharge Plan Admission Admit Date/Time: 12/23/21 03:46 Primary Reason for Your Visit: FTT Adult, NSCLC Left Lung w/ spinal cord metastatic disease Attending Provider: Teresa Holliday Primary Care Provider: Des Che Discharge Orders/Prescriptions Prescriptions: New sennosides [Shasta-kayla] 8.6 mg Tablet 1 tab PO BID PRN (Reason: constipation) Qty: 0 RF: 0 acetaminophen [Tylenol] 325 mg Tablet 650 mg PO Q6H PRN PRN (Reason: Pain Score 1-10/Temp > 100.7 F) Qty: 0 RF: 0 albuterol sulfate 2.5 mg /3 mL (0.083 %) Solution For Nebulization 2.5 mg inhalation Q2H PRN PRN (Reason: Shortness of Breath/Wheezing) Qty: 0 RF: 0 melatonin 3 mg Tablet 3 mg PO QHS PRN PRN (Reason: Insomnia) Qty: 0 RF: 0 benzonatate 100 mg Capsule 100 mg PO Q6 Qty: 0 RF: 0 dexamethasone 2 mg Tablet 2 mg PO BREAKFAST 10 Days Qty: 10 RF: 0 gabapentin 100 mg Capsule 100 mg PO TIDCM 10 Days Qty: 0 RF: 0 Mucus Relief ER 1,200 mg Tablet Extended Release 12hr 1,200 mg PO BID 10 Days Qty: 20 RF: 0 Continued Stiolto Respimat 2.5-2.5 mcg/actuation mist 2 inh INHALATION DAILY Qty: 4 RF: 3 albuterol sulfate [ProAir HFA] 90 mcg/actuation HFA aerosol inhaler 1 - 2 puff inhalation Q6H PRN (Reason: shortness of breath or wheezing) Qty: 8.5 RF: 1 lisinopril 20 MG tablet 10 mg PO DAILY RF: 0 Referrals / Follow Up: Prudencio Sandoval MD [NON-STAFF] - (Follow-up as previously arranged or within 1-2 weeks hospital discharge.) Des Che MD [Primary Care Provider] - (Follow-up within 1-2 weeks SNF transition following hospital discharge and within 1-2 days hospital d/c if prolonged skilled stay.) Disposition Disposition (needs filled in before D/C Order can be placed): Long Term Facility
--- NOTE | 2021-12-25 11:21 | DS.PCM_ITS ---
Providers Date of Admission: 12/23/21 Primary Care Physician: Dr. Des Che MD Reason For Visit: GENERALIZED WEAKNESS, FALL Diagnosis Discharge Diagnosis (1) Generalized weakness: Status: Acute Code(s): R53.1 - Weakness (2) Spinal cord neoplasm: Status: Acute Code(s): D49.7 - Neoplasm of unspecified behavior of endocrine glands and other parts of nervous system (3) Inability to walk: Status: Acute Code(s): R26.2 - Difficulty in walking, not elsewhere classified Medications at Discharge Home Medications lisinopril 10 mg PO DAILY 03/13/21 albuterol sulfate 90 mcg/actuation aerosol inhaler 1 - 2 puff INHALATION Q6H PRN #8.5 g 09/18/21 Stiolto Respimat 2 inh INHALATION DAILY 12/25/21 acetaminophen [Tylenol] 650 mg PO Q6H PRN PRN #0 tab 12/25/21 albuterol sulfate 2.5 mg INHALATION Q2H PRN PRN #0 ml 12/25/21 benzonatate 100 mg PO Q6 12/25/21 dexamethasone 2 mg PO BREAKFAST 12/25/21 gabapentin 100 mg PO TIDCM 12/25/21 guaifenesin [Mucus Relief ER] 1,200 mg PO BID 12/25/21 melatonin 3 mg PO QHS PRN PRN #0 tab 12/25/21 sennosides [Shasta-kayla] 1 tab PO BID PRN #0 tab 12/25/21 Hospital Course Operations None Procedures None Summary of Care Provided Minutes Spent on Discharge: 35 Hospital Course: ATTENDING PHYSICIAN DISCHARGE NOTE: Discharge Diagnoses: #1. Metastatic primary lung cancer with spinal cord neoplasm (intramedullary spinal cord) resulting in significant progressive weakness and debility, failure to thrive adult #2. Non-small cell lung cancer left lung, metastatic is noted #1 #3. Former tobacco use, #4. Chronic odynophagia #5. Hypertension Discharge Summary: The patient is a 66 y/o M w/ PMHx: Metastatic primary non- small cell lung cancer with unfortunately metastatic lesion to the spinal cord specifically noted intramedullary spinal cord following with Dr. Sandoval with severe debility, inability to even ambulate who presents to [facility] ED on 12/23/2021 w/ significant progressive decline, increased debility as well as pain. Patient was mated to the medical surgical floor, initiated on regimen of steroids and gabapentin, maintain on fall and positional change precautions, PT and OT assessment with case management involvement as well with transition to skilled for ongoing therapies and to assure pain control. Discharge Time: > 35 Minutes DAY OF DISCHARGE PROGRESS NOTE: Subjective: Patient without acute event overnight per self and nursing report. Patient does report he feels improved since day prior, pain improved. He also reports bowel movement the day prior. Patient denies fever, chills, nausea, emesis, abdominal pain, chest pain or dyspnea. Patient agreeable to discharge to skilled facility. Patient will be discharged with follow-up with primary care physician as well as continued follow-up with oncology. Objective: T 98.2, heart rate 98, BP 134/75, respiratory rate 18, 92 to 97% on room air. Physical Examination: General: awake, alert, oriented x 3 and cooperative, seated upright in the medical surgical bed, no acute distress, notes pain improved Skin: normal color, turgor, no icterus, cyanosis. HEENT: AT/NC, EOMI, PERRLA, MMM. Lungs: CTA bilaterally, moderate effort, mild decrease BL bases, no rales, ronchi or wheezing; Heart: Regular rate and rhythm; no gallop, rub audible. Abdomen: soft, obese, NTTP, ND, normal BS. Extremities: no cyanosis, no clubbing, mild pedal to distal judd edema. Neurological: patient awake, alert, oriented as noted; cognitive function appears intact upon questioning,; pupils equally reactive to light and accomodation; cranial nerves II-XII grossly normal, moving all 4 extremities which is improved but is still significantly debilitated and really only uses it for transitions, nonambulatory, worse with leg raise attempts. Psychiatric: affect appears improved, normal, no acute evidence of depressive or anxiety feelings. Assessment and Plan: Please see hospital summary above. Weight / BMI Weight Weight: 219 lb 1.6 oz Body Mass Index (BMI) 30.5 ABG / Lab / Microbiology Data Result Diagrams: 12/24/21 04:46 12/24/21 04:46 Microbiology: Microbiology 12/23/21 01:55 Nasal Secretion SARS-CoV-2 Antigen (Rapid) - Final Meaningful Use Info Meaningful Use Diagnoses (Choose all that apply): None applicable Discharge Plan Admission Admit Date/Time: 12/23/21 03:46 Primary Reason for Your Visit: FTT Adult, NSCLC Left Lung w/ spinal cord metastatic disease Attending Provider: Teresa Holliday Primary Care Provider: Des Che Discharge Orders/Prescriptions Prescriptions: New sennosides [Shasta-kayla] 8.6 mg Tablet 1 tab PO BID PRN (Reason: constipation) Qty: 0 RF: 0 acetaminophen [Tylenol] 325 mg Tablet 650 mg PO Q6H PRN PRN (Reason: Pain Score 1-10/Temp > 100.7 F) Qty: 0 RF: 0 albuterol sulfate 2.5 mg /3 mL (0.083 %) Solution For Nebulization 2.5 mg inhalation Q2H PRN PRN (Reason: Shortness of Breath/Wheezing) Qty: 0 RF: 0 melatonin 3 mg Tablet 3 mg PO QHS PRN PRN (Reason: Insomnia) Qty: 0 RF: 0 Continued albuterol sulfate [ProAir HFA] 90 mcg/actuation HFA aerosol inhaler 1 - 2 puff inhalation Q6H PRN (Reason: shortness of breath or wheezing) Qty: 8.5 RF: 1 lisinopril 20 MG tablet 10 mg PO DAILY RF: 0 No Action benzonatate 100 mg capsule 100 mg PO Q6 RF: 0 dexamethasone 2 mg tablet 2 mg PO BREAKFAST RF: 0 gabapentin 100 mg capsule 100 mg PO TIDCM RF: 0 Mucus Relief ER 1,200 mg tablet extended release 12hr 1,200 mg PO BID RF: 0 Stiolto Respimat 2.5-2.5 mcg/actuation mist 2 inh INHALATION DAILY RF: 0 Referrals / Follow Up: Prudencio Sandoval MD [NON-STAFF] - (Follow-up as previously arranged or within 1-2 weeks hospital discharge.) Des Che MD [Primary Care Provider] - (Follow-up within 1-2 weeks SNF transition following hospital discharge and within 1-2 days hospital d/c if prolonged skilled stay.) Disposition Disposition (needs filled in before D/C Order can be placed): [facility] Facility Charges/Coding Visit Charges OBSV E&M: 72734 Observation care discharge
[2021-12-25] MEDS: Senna Tablet 1 TABLET PO (11:46)
[2021-12-25 14:18] VITALS: PULSE 78; RESP 18
[2021-12-25] MEDS: Ipratropium/Albuterol Sulfate 3 ML AMPUL.NEB INHALATION (14:18)
== END 2021-12-25 14:45 | disposition skilled nursing facility (03) ==
LOC: ED 02:34 → MS2 04:18
PROVIDERS: Admitting Provider Hospitalist; Emergency Provider Emergency Medicine; PCP Family Medicine; Visit Provider Family Medicine
DX: C79.49 Secondary malignant neoplasm of other parts of nervous system (principal); C34.92 Malignant neoplasm of unspecified part of left bronchus or lung; R53.1 Weakness; M79.601 Pain in right arm; R20.2 Paresthesia of skin; R13.19 Other dysphagia; Z92.3 Personal history of irradiation; R26.2 Difficulty in walking, not elsewhere classified; I10 Essential (primary) hypertension; R20.0 Anesthesia of skin; R53.81 Other malaise; R62.7 Adult failure to thrive; Z87.891 Personal history of nicotine dependence; Z79.899 Other long term (current) drug therapy
CPT/HCPCS: 36415; 36591; 71045; 80048; 81001; 83735; 84443; 85025; 87426; 94640; 96361; 96372; 96374; 97110; 97162; 97166; 97530; 99218; 99285; J7030; A4216; G0378

== ENCOUNTER 2021-12-25 14:56 | Inpatient (IN) | payer MEDICARE, BC, SELFPAY ==
[2021-03-14 11:21] VITALS: BMI 29.2
[2021-12-25 15:12] VITALS: BP 134/75; PULSE 94; PULSE 98; RESP 16; RESP 18; TEMP 36.8; O2SAT 92; BMI 29.9
[2021-12-25] MEDS: Benzonatate 100 MG Capsule PO (17:34)
[2021-12-25] MEDS: Gabapentin 100 MG Capsule PO (17:34)
[2021-12-25] MEDS: guaiFENesin 1,200 MG Tablet 1200 MG PO (17:34)
[2021-12-25] MEDS: Ipratropium/Albuterol Sulfate 3 ML AMPUL.NEB INHALATION (20:00)
--- NOTE | 2021-12-25 20:07 | PCM.HP.STD ---
HPI - General General Date of Admission: 12/25/21 HPI Narrative 12/23/2021 SHASHA RODRIGUEZ, is a 66 Male who presents to [facility] Emergency Department with fall. Tumor cervical spine compressing right C2 nerve root. Radiation x 5 days 4 weeks prior, right arm, right leg sensation improvement afterwards. Weakness x 2 days, unable to walk with cane. Fell going to bathroom, no head injury, no loss of consciousness. On floor 15 to 20 minutes, unable to get up. Right hemiparesis on exam. Chest X-ray negative, covid19 negative. 12/23/2021 Admit to Hospital. Gabapentin three times per day for right cervical radiculopathy. Toradol IV as needed for pain. PT/OT for debility. IV fluids for acute kidney injury/dehydration. Mucinex 1200mg bid, Tessalon perles for cough. PT/OT for rehabilitation. 12/24/2021 Non small cell lung cancer with mets to cervical spine, Dr. Sandoval. s/p chemotherapy/radiation May 2021. 12/25/2021 Admit to TCU with debility, here for rehabilitation, strengthening, prior to discharge home with . [facility] Medical History Acute respiratory failure with hypoxia Contact with and (suspected) exposure to other viral communicable diseases Dyspnea Ear pain, right Encounter for education Former smoker Hemoptysis Hypertension Lung mass NSCLC of left lung Odynophagia Pneumonia Shortness of breath Home Medications lisinopril 10 mg PO DAILY 03/13/21 [History Last Taken 03/23/21 19:00] albuterol sulfate 90 mcg/actuation aerosol inhaler 1 - 2 puff INHALATION Q6H PRN #8.5 g 09/18/21 [Rx Last Taken Unknown] Stiolto Respimat 2 inh INHALATION DAILY 12/25/21 [History Last Taken Unknown] acetaminophen [Tylenol] 650 mg PO Q6H PRN PRN #0 tab 12/25/21 [Rx Last Taken Unknown] albuterol sulfate 2.5 mg INHALATION Q2H PRN PRN #0 ml 12/25/21 [Rx Last Taken Unknown] benzonatate 100 mg PO Q6 12/25/21 [History Last Taken Unknown] dexamethasone 2 mg PO BREAKFAST 12/25/21 [History Last Taken Unknown] gabapentin 100 mg PO TIDCM 12/25/21 [History Last Taken Unknown] guaifenesin [Mucus Relief ER] 1,200 mg PO BID 12/25/21 [History Last Taken Unknown] melatonin 3 mg PO QHS PRN PRN #0 tab 12/25/21 [Rx Last Taken Unknown] sennosides [Shasta-kayla] 1 tab PO BID PRN #0 tab 12/25/21 [Rx Last Taken Unknown] Allergy/AdvReac Type Severity Reaction Status Date / Time No Known Allergies Allergy Verified 12/19/21 13:15 Family History Father Alzheimers disease Mother Skin cancer Surgical History S/P bronchoscopy Social History (Updated 12/25/21 @ 20:[address] Gabe Johnson MD) household members: spouse Smoking Status: Former smoker pack-years: 25 alcohol intake: never substance use type: does not use ROS Constitutional Constitutional: Denies chills, fever(s) or weight gain ENT HEENT: Denies headache(s), nasal congestion or nasal discharge Cardiovascular Cardiovascular: Denies chest pain or palpitations Respiratory/Chest Respiratory/Chest: Denies cough, excessive phlegm production or shortness of breath with exertion Gastrointestinal Gastrointestinal: Denies abdominal pain, nausea or vomiting Genitourinary Genitourinary: Denies dysuria Musculoskeletal Musculoskeletal: Denies joint pain or joint swelling Integumentary Integumentary: Denies rash or wounds Neurologic Neurologic: Reports other Details: Right upper, Right lower extremity weakness. Right upper, right lower numbness. ; Denies focal weakness, numbness or tingling Psychiatric Psychiatric: Denies anxiety, auditory hallucinations, depression, homicidal ideation or suicidal ideation Vital Signs Vital Signs Vital Signs: 12/25/21 15:12 Temperature 98.2 F Temperature Source Temporal Pulse Rate 94 Pulse Rhythm Regular Respiratory Rate 16 Respiratory Effort Normal Respiratory Depth Normal Blood Pressure 134/75 H Blood Pressure Mean 94 Blood Pressure Source Monitor Blood Pressure Position Sitting Blood Pressure Location Left Arm Pulse Ox 92 Oxygen Delivery Method Room Air Weight Weight: 97.29 kg Body Mass Index (BMI) 29.9 Physical Exam Const alert and oriented x3 General Appearance: cooperative HEENT normocephalic Eyes PERRL and EOMs intact bilaterally Neck supple, no JVD and no carotid bruits Resp normal respiratory effort, normal air movement and clear to auscultation bilaterally Cardio regular rate and regular rhythm GI normal to inspection, nondistended, normoactive bowel sounds, non-tender and non-distended Extremity normal capillary refill General Extremity: Negative for edema Skin no rashes or lesions noted General Skin Exam: no breakdown Neuro Neuro Narrative: Right hemiparesis. Psych affect normal Appearance: appropriate Assessment & Plan Assessment/Plan (1) Debility: (2) Malignant neoplasm of intramedullary spinal cord: (3) NSCLC of left lung: (4) Acute kidney injury: (5) Dehydration: (6) Right cervical radiculopathy: (7) Hypertension: (8) Shortness of breath: PLAN: 66 year old male with below past medical history significant for 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 Debility - PT/OT. Pain - Tylenol 1000mg q6h prn pain (1-5), Oxycodone 5mg q4h prn pain (6-10). Bowel - Miralax 17gm daily, senna/colace 1 tablet bid, Dulcolax 10mg daily prn. Adult immunization - Administer prevnar 13, pneumovax 23, fluzone, covid19 vaccine as appropriate. DVT prophylaxis - Lovenox 40mg sc daily. Shortness of breath - Duoneb 3ml q6hwa, Albuterol 2.5mg nebulized q2h prn. Cough - Mucinex 1200mg bid, Tesslaon perles 100mg q6. Lung cancer with cervical spinal cord metastasis - Dexamethasone 2mg daily thru 01/05/2022. Right cervical radiculopathy - Gabapentin 100mg tidcm. Hypertension - Lisinopril 10mg daily. Insomnia - Melatonin 3mg qhs prn. Skin irritation - Calmoseptine topical bid.
[2021-12-25 20:13] VITALS: PULSE 95; RESP 16; O2SAT 94
[2021-12-25] MEDS: Acetaminophen 500 MG Tablet 1000 MG PO (21:09)
[2021-12-26] MEDS: Benzonatate 100 MG Capsule PO ×4 (00:23→17:01)
[2021-12-26 05:53] LABS: Absolute Lymphocyte Count 1.11 X10^3/uL (0.83-4.51); Absolute Neutrophil Count 3.7 X10^3/uL (2.0-7.7); Basophil# 0.03 X10^3/uL; Basophil% 0.5 % (0-1); Eosinophil# 0.06 X10^3/uL; Eosinophils% 1.1 % (0-5); Hematocrit 41.2 % (40-54); Hemoglobin 13.8 g/dL (13.0-16.5); Lymphocyte # 1.11 X10^3/ul (0.83-4.51); Lymphocyte % 19.9 % (19-41); Mean Corp Hgb Conc 33.5 g/dL (32-36); Mean Corpuscular Hgb 30.5 pg (27.0-32.0); Mean Corpuscular Volume 91.2 fL (80-94); Mean Platelet Vol. 8.8 fl (6.2-12.0); Monocyte# 0.56 X10^3/uL; NRBC Flagged by Analyzer 0 % (0-5); Neutrophil # 3.74 X10^3/uL (2.7-7.7); Neutrophil % 67.1 % (47-70); Platelet Count 204 K/mm3 (150-450); RBC Distribution Width SD 47.1 fl (35.1-43.9); Red Blood Count 4.52 M/mm3 (4.6-6.2); White Blood Count 5.6 K/mm3 (4.4-11.0)
[2021-12-26] MEDS: Acetaminophen 500 MG Tablet 1000 MG PO (06:22)
[2021-12-26] MEDS: Enoxaparin 40 MG/0.4 ML Syringe SC (06:23)
[2021-12-26] MEDS: Menthol/Lanolin/Calamine/Znox 113 GM Tube 1 APPLIC TOPICAL (06:23)
[2021-12-26] MEDS: Polyethylene Glycol 3350 17 GM PACKET PO (06:24)
[2021-12-26] MEDS: guaiFENesin 1,200 MG Tablet 1200 MG PO ×2 (06:24→17:01)
[2021-12-26] MEDS: Senna/Docusate Sodium 1 Tablet PO ×2 (06:25→17:01)
[2021-12-26] MEDS: Lisinopril 10 MG Tablet PO (06:25)
[2021-12-26 06:39] LABS: Anion Gap 6 (5-15); BUN 20 mg/dL (7-18); BUN/Creat Ratio 36.2 RATIO (10-20); Calcium,Total 8.9 mg/dL (8.5-10.1); Chloride 106 mmol/L (98-107); Creatinine, Serum 0.55 mg/dL (0.70-1.30); EST Glomerular Filtration Rate 157 mL/min (>60); Est Glom Filt Rate - Afr Amer 190 mL/min (>60); Estimated Creatinine Clearance 77.39 ml/min; Glucose 90 mg/dL (74-106); Potassium 3.7 mmol/L (3.5-5.1); Sodium Level 139 mmol/L (136-145)
[2021-12-26 07:30] VITALS: O2SAT 94
[2021-12-26] MEDS: Gabapentin 100 MG Capsule PO ×3 (08:48→17:01)
[2021-12-26] MEDS: dexAMETHasone 2 MG TABLET PO (08:49)
[2021-12-26] MEDS: Tuberculin,Purif.prot.deriv. 50 TU/ML Vial 0.1 ML ID (11:38)
[2021-12-26 12:45] VITALS: PULSE 84; RESP 18; O2SAT 94
--- NOTE | 2021-12-26 13:23 | CASEMGMT ---
Addendum entered by Jaimie Chung 12/26/21 15:01: requesting Palliative referral. Order entered and referral sent to [facility] Palliative via email. Original Note: Social Work Met with patient for initial assessment. Confirmed full code and completed MOLST. MOLST form communicated to , placed in chart. Pt does not have HCPOA/LW documents and agreed to complete prior to DC. Pt would like to name his as HCPOA but they do not have any children and would like to talk with some friends before naming alternate. SW agreed and will revisit to complete. Explained Medicare benefit. Encouraged to contact secondary insurance to ensure copay coverage. 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 Inquired about DC plan and assisting pt. Pt agreed and would be able to stay home to assist. The goal is for pt to return to closer PLOF of independence. Pt was receiving chemo/radiation treatment prior for cancer. Discussed mood and pt reports overall, doing well, staying motivated. Reports letting himself have a day to cry, but then moved forward after that. But reports being emotional at times. Validated feelings and commended for allowing time to grieve and express feelings, but now keeping a positive outlook. Pt does appear motivated toward recovery. Offered support throughout stay as needed. SW to continue to follow for support and DC planning. Jaimie Chung, [employer]
[2021-12-26 13:32] VITALS: BP 120/77; PULSE 78; RESP 17; TEMP 36.5; O2SAT 92
--- NOTE | 2021-12-26 15:10 | NURSING ---
pt has red area on left side of neck. pt thinks its from his stubble and will bring in racer and shave pt. rn aware.
[2021-12-27] MEDS: Polyethylene Glycol 3350 17 GM PACKET PO (06:00)
[2021-12-27] MEDS: Lisinopril 10 MG Tablet PO (06:01)
[2021-12-27] MEDS: guaiFENesin 1,200 MG Tablet 1200 MG PO ×2 (06:01→17:18)
[2021-12-27] MEDS: Enoxaparin 40 MG/0.4 ML Syringe SC (06:01)
[2021-12-27] MEDS: Benzonatate 100 MG Capsule PO ×3 (06:01→17:18)
[2021-12-27] MEDS: Senna/Docusate Sodium 1 Tablet PO ×2 (06:02→17:18)
[2021-12-27] MEDS: Menthol/Lanolin/Calamine/Znox 113 GM Tube 1 APPLIC TOPICAL ×2 (06:02→17:20)
[2021-12-27] MEDS: TIOTROPIUM BR INHALATION (06:03)
[2021-12-27] MEDS: OLODATEROL HCL INHALATION (06:03)
[2021-12-27] MEDS: Acetaminophen 500 MG Tablet 1000 MG PO ×2 (06:09→21:07)
[2021-12-27 07:06] VITALS: O2SAT 92
[2021-12-27] MEDS: dexAMETHasone 2 MG TABLET PO (08:44)
[2021-12-27] MEDS: Gabapentin 100 MG Capsule PO ×3 (08:44→17:17)
[2021-12-27] MEDS: Bisacodyl 5 MG Tablet 10 MG PO (08:49)
--- NOTE | 2021-12-27 09:27 | CASEMGMT ---
Social Work SW met w/pt in regard to LW/POA forms. Pt would like to complete the forms once his comes in later today. He does want to put his as POA, and has an idea on who to put as an alternate. SW will check back w/pt later today when his is here. RAMÍREZ Mercedes
--- NOTE | 2021-12-27 11:34 | CASEMGMT ---
Social Work SW assisted pt in completing LW/POA for healthcare. Pt listed his as Healthcare POA, and friend Jensen as the alternate. SW gave pt originals and copies, and copies placed on the chart. RAMÍREZ Mercedes
[2021-12-27 14:11] VITALS: BP 125/75; PULSE 79; RESP 18; TEMP 36.4; O2SAT 92
--- NOTE | 2021-12-27 14:37 | NURSING ---
Pt c/o constipation, rectal pain and difficult urinating from pressure from his bowels. PO dulcolax given this morning per request, prune juice and butter given and pt still straining to have BM but was able to have a medium, hard, dry stool. Pt requesting SSE, Dr. valencia called and order for SSE obtained. SSE given and stool colored liquid expelled but nothing of substance, will continue to monitor
[2021-12-27] MEDS: 0.9% Saline Lock 10 ML Syringe IV (18:32)
[2021-12-28] MEDS: Benzonatate 100 MG Capsule PO ×3 (06:30→16:54)
[2021-12-28] MEDS: Enoxaparin 40 MG/0.4 ML Syringe SC (06:30)
[2021-12-28] MEDS: Menthol/Lanolin/Calamine/Znox 113 GM Tube 1 APPLIC TOPICAL ×2 (06:30→16:55)
[2021-12-28] MEDS: Acetaminophen 500 MG Tablet 1000 MG PO ×2 (06:30→19:49)
[2021-12-28] MEDS: Bisacodyl 5 MG Tablet 10 MG PO (06:30)
[2021-12-28] MEDS: guaiFENesin 1,200 MG Tablet 1200 MG PO ×2 (06:30→16:54)
[2021-12-28] MEDS: TIOTROPIUM BR INHALATION (06:31)
[2021-12-28] MEDS: Lisinopril 10 MG Tablet PO (06:31)
[2021-12-28] MEDS: Polyethylene Glycol 3350 17 GM PACKET PO (06:31)
[2021-12-28] MEDS: OLODATEROL HCL INHALATION (06:31)
[2021-12-28] MEDS: Senna/Docusate Sodium 1 Tablet PO (06:31)
[2021-12-28] MEDS: dexAMETHasone 2 MG TABLET PO (08:49)
[2021-12-28] MEDS: Gabapentin 100 MG Capsule PO ×3 (08:49→16:54)
--- NOTE | 2021-12-28 11:04 | PHA.CONS1_ITS ---
Progress Note - Pharmacy Subjective: TCU ADMISSION Objective: Allergies No Known Allergies Allergy (Verified 12/19/21 13:15) Current Medications Generic Name Dose Route Start Last Admin Trade Name Dereje PRN Reason Stop Dose Admin Acetaminophen 1,000 mg 12/25/21 20:22 12/28/21 06:30 Acetaminophen 500 Mg Tablet PO 1,000 mg Q6H PRN PRN Administration Pain Score 1-5 Albuterol Sulfate 2.5 mg 12/25/21 15:20 Albuterol 2.5 Mg/3 Ml Vial.Neb. INHALATION Q2H PRN PRN Shortness of Breath/Wheezing Benzonatate 100 mg 12/25/21 18:00 12/28/21 06:30 Benzonatate 100 Mg Capsule PO 100 mg Q6 JAMILA Administration Bisacodyl 10 mg 12/25/21 15:29 12/28/21 06:30 Bisacodyl 5 Mg Tablet PO 10 mg DAILY PRN Administration Constipation Calamine/Phenol 1 applic 12/25/21 18:00 12/28/21 06:30 Menthol/Lanolin/Calamine/Znox 113 Gm Tube TOPICAL 1 applic BID JAMILA Administration Protocol Dexamethasone 2 mg 12/26/21 08:00 12/28/21 08:49 Dexamethasone 2 Mg Tablet PO 01/05/22 08:01 2 mg BREAKFAST JAMILA Administration Enoxaparin Sodium 40 mg 12/26/21 06:00 12/28/21 06:30 Enoxaparin 40 Mg/0.4 Ml Syringe SC 40 mg DAILY@0600 JAMILA Administration Gabapentin 100 mg 12/25/21 17:45 12/28/21 08:49 Gabapentin 100 Mg Capsule PO 01/04/22 17:46 100 mg TIDCM JAMILA Administration Guaifenesin 1,200 mg 12/25/21 18:00 12/28/21 06:30 Guaifenesin 1,200 Mg Tablet PO 01/04/22 18:01 1,200 mg BID JAMILA Administration Heparin Sodium (Beef Lung) 50 units 12/25/21 15:46 12/27/21 18:32 Heparin Pf Lock 10 Units/Ml 50 Units/5 Ml Syringe IV 50 units UD PRN Administration Port-a-Cath (VAD)Heparin Flush Lisinopril 10 mg 12/26/21 06:00 12/28/21 06:31 Lisinopril 10 Mg Tablet PO 10 mg DAILY JAMILA Administration Melatonin 3 mg 12/25/21 15:20 Melatonin 3 Mg Tablet PO QHS PRN PRN Insomnia Oxycodone HCl 5 mg 12/25/21 20:21 Oxycodone 5 Mg Tablet PO Q4H PRN PRN Pain Score 6-10 Polyethylene Glycol 17 gm 12/26/21 06:00 12/28/21 06:31 Polyethylene Glycol 3350 17 Gm Packet PO 17 gm DAILY JAMILA Administration Senna/Docusate Sodium 1 tablet 12/26/21 06:00 12/28/21 06:31 Senna/Docusate Sodium 1 Tablet PO 1 tablet BID JAMILA Administration Sodium Chloride 10 - 40 ml 12/25/21 15:46 12/27/21 18:32 0.9% Saline Lock 10 Ml Syringe IV 10 ml UD PRN Administration Port-a-Cath (VAD) Flush Sodium Chloride 10 - 40 ml 12/25/21 15:46 0.9 % Nacl (Sterile) Posiflush 10 Ml IV UD PRN Port access or dressing change Tuberculin PPD 0.1 ml 01/02/22 10:00 Tuberculin,Purif.Prot.Deriv. 50 Tu/Ml Vial ID 01/02/22 10:01 X1 ONE Problem List (Last Reviewed 12/25/21 @ 20:[address] 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) NSCLC of left lung (Acute) Vital Signs Temp Pulse Resp BP Pulse Ox 97.5 F L 79 18 125/75 H 92 12/27/21 14:11 12/27/21 14:11 12/27/21 14:11 12/27/21 14:11 12/27/21 14:11 Oxygen Delivery Method Room Air Weight: 97.3 kg Body Mass Index (BMI) 29.9 Sodium 139 mmol/L (136-145) 12/26/21 05:09 Potassium 3.7 mmol/L (3.5-5.1) 12/26/21 05:09 Chloride 106 mmol/L (98-107) 12/26/21 05:09 Carbon Dioxide 27.0 mmol/L (21.0-32.0) 12/26/21 05:09 Anion Gap 6 (5-15) 12/26/21 05:09 BUN 20 mg/dL (7-18) H 12/26/21 05:09 Creatinine 0.55 mg/dL (0.70-1.30) L 12/26/21 05:09 Est GFR (MDRD) Af Amer 190 mL/min (>60) 12/26/21 05:09 Est GFR (MDRD) Non-Af 157 mL/min (>60) 12/26/21 05:09 BUN/Creatinine Ratio 36.2 RATIO (10-20) H 12/26/21 05:09 Glucose 90 mg/dL (74-106) 12/26/21 05:09 Assessment/Plan: 1. Pain: Tylenol 1000mg PO Q6h PRN Pain 1-5, Oxycodone 5mg PO Q4h PRN pain 6-10. Please continue to monitor for increased/decreased S/S pain, oversedation, respiratory depression, PRN medication usage. 2. HTN: Lisinopril 10mg PO Daily. Please continue to monitor BP, electrolytes, renal function. 3. Lung Cancer with Metastasis: Decadron 2mg PO Daily thru 01/05/22. Please continue to monitor for pain, insomnia, nausea. 4. SOB/ cough: Albuterol nebulization Q2h PRN SOB/wheezing, Benzonatate 100mg PO Q6, Mucinex 1200mg PO BID. Please continue to monitor for SOB, improvement in coughing symptoms. 5. Right Cervical Radiculopathy: Gabapentin 100mg PO TIDCM. Please continue to monitor for medication effectiveness, renal function, oversedation. 6. Insomnia: Melatonin 3mg PO QHS PRN. Please continue to monitor for medication effectiveness. If medication not effective, please try to administer at least 2hr prior to bedtime to allow medication to take effect. May also encourage non- pharmacologic treatments to improve sleep. 7. DVT Prophylaxis: Lovenox 40mg SC Daily. Please continue to monitor CrCl, S/S bleeding/bruising. Psychotropic Medications: None Unnecessary Medications: None Bowel Regimen: Miralax 17g PO Daily, Senna/Docusate 1 tab PO BID, Dulcolax 10mg PO Daily PRN. Please continue to monitor for increased/decreased constipation and/or diarrhea. Date of Note:: 12/28/21
--- NOTE | 2021-12-28 12:44 | PCM.CONS.P ---
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 Seen today for palliative consultation for symptom management of shortness of breath, debility, and supportive management at home. 1. Weakness and debility: Receiving PT/OT. Unclear discharge plan at this time, but goal is to return home with . He is able to ambulate with a walker. Unclear etiology, may have recurrent cord compression. He is scheduled for a PET and CT in January. 2. Shortness of breath: Seems to be under control. Has inhalers/nebulizers in place. Follows with pulmonary. No indication for opioid management at this time. Palliative can continue to follow him as an outpatient if he is agreeable and will work with his primary care and specialists to optimize care. 3. Right cervical radiculopathy/NSCLC with mets to spinal cord/former smoker/hypertension/insomnia: Complicates overall care, management, recovery, and prognosis. Defer management to primary care and specialist. We will assist in any way we can with symptoms. Thank you for the opportunity to participate in this patient's care, please do not hesitate to contact [facility] with any further questions or concerns. Palliative direct line is [phone]. We will follow up after discharge and will discuss palliative services further at that time. Gave patient my contact info, he would like to pursue services at discharge Greater than 50% of F2F visit dedicated to education and counseling of palliative care services, medications, comorbid conditions and potential assistance with management, and plan of care moving forward. Start time: 1245 End time: 1335 HPI Consult Data Date of Consult: 12/28/21 HPI Narrative HPI Narrative: SHASHA RODRIGUEZ, is a 66 M who presented to [facility] ED 12/23/2021 with a fall. Recently diagnosed with cervical spine tumor compressing the C2 nerve root in the setting of primary non-small cell lung cancer. He has underwent radiation and had initial improvement with strength of right arm and leg as well as sensation, however recently had another decline and generalized weakness. Follows with Dr. Sandoval. The weakness became so severe that he was unable to stand or hold himself up. He was admitted 12/23 through 12/25/2021 and received steroids and gabapentin. Eventually discharged to TCU for further rehab. Patient is on dexamethasone 2 mg daily through 01/05/2022. He is also on gabapentin 100 mg 3 times a day. Medications for pain include at 1000 mg of Tylenol every 6 hours as needed and oxycodone 5 mg every 4 hours as needed for more severe pain. He is receiving therapy in the TCU. Goal is for patient to return home with his . They live in a single-story home with 2 steps and railing to enter. He is typically independent at home but has been getting progressively weaker. DME in the home include a shower chair, walker, grab bars. He has been doing outpatient therapy at [facility]. His is his HC POA. They use [facility] in [place]. He also follows with Dr. Barraza, oncology radiologist and Dr. Garcia for pulmonary. Patient denies any significant shortness of breath. He does have some mild conversational dyspnea. He remains on room air. No N/V/D. Bowels are moving okay. He is quite weak on the right side. Using walker and was able to ambulate to the therapy room today. No chest pain, dizziness, or syncope. Frequent nocturia. Some numbness and tingling to the right extremities. He remains optimistic and goal is to get home and be more independent again. He is open to the concept of palliative care. I did explain the differences between palliative and hospice as the patient asked if it was the same. [facility] Medical History (Updated 12/28/21 @ 12:54 by Debi Villanueva, DIXIE-Cathy) Acute respiratory failure with hypoxia Contact with and (suspected) exposure to other viral communicable diseases Dyspnea Ear pain, right Encounter for education Former smoker Hemoptysis Hypertension Inability to walk Lung mass NSCLC of left lung Odynophagia Pneumonia Spinal cord neoplasm Home Medications lisinopril 10 mg PO DAILY 03/13/21 [History Last Taken 03/23/21 19:00] albuterol sulfate 90 mcg/actuation aerosol inhaler 1 - 2 puff INHALATION Q6H PRN #8.5 g 09/18/21 [Rx Last Taken Unknown] Stiolto Respimat 2 inh INHALATION DAILY 12/25/21 [History Last Taken Unknown] acetaminophen [Tylenol] 650 mg PO Q6H PRN PRN #0 tab 12/25/21 [Rx Last Taken Unknown] albuterol sulfate 2.5 mg INHALATION Q2H PRN PRN #0 ml 12/25/21 [Rx Last Taken Unknown] benzonatate 100 mg PO Q6 12/25/21 [History Last Taken Unknown] dexamethasone 2 mg PO BREAKFAST 12/25/21 [History Last Taken Unknown] gabapentin 100 mg PO TIDCM 12/25/21 [History Last Taken Unknown] guaifenesin [Mucus Relief ER] 1,200 mg PO BID 12/25/21 [History Last Taken Unknown] melatonin 3 mg PO QHS PRN PRN #0 tab 12/25/21 [Rx Last Taken Unknown] sennosides [Shasta-kayla] 1 tab PO BID PRN #0 tab 12/25/21 [Rx Last Taken Unknown] Allergy/AdvReac Type Severity Reaction Status Date / Time No Known Allergies Allergy Verified 12/19/21 13:15 Family History Father Alzheimers disease Mother Skin cancer Surgical History S/P bronchoscopy Social History household members: spouse Smoking Status: Former smoker pack-years: 25 alcohol intake: never substance use type: does not use ROS ROS Narrative Review of systems otherwise negative from a constitutional, HEENT, respiratory, cardiovascular, GI, genitourinary, musculoskeletal, skin, neurologic, psychiatric and hematologic system unless stated above. Physical Exam Const alert, oriented x3 and no apparent distress General Appearance: cooperative and comfortable HEENT normocephalic and head/scalp atraumatic Neck supple General: trachea midline Resp Effort and Inspection: able to speak in complete sentences and symmetric chest movement Auscultation: diminished lung sounds; Negative for rales, rhonchi or wheezes Cardio regular rate, regular rhythm, S1 normal heart sound and S2 normal heart sound GI normal to inspection, nondistended, normoactive bowel sounds Extremity no clubbing, cyanosis or edema Skin no rashes or lesions noted Neuro moves all extremities Neuro Narrative: Right-sided upper and lower extremity weakness, able to move right upper arm but decreased range of motion Psych mental status grossly normal Attitude: calm and engaged Activity / Motor Behavior: appropriate eye contact Speech: normal speech Mood & Affect: euthymic mood Memory / Cognition: memory grossly intact Insight: insight good Judgement: judgement good
[2021-12-28 14:32] VITALS: BP 115/72; PULSE 92; RESP 18; TEMP 36.2; O2SAT 94
--- NOTE | 2021-12-28 16:21 | CHAPLAIN ---
Type of Pastoral Visit _x__ Initial Visit ___ Follow-up Visit ___ On-call Visit ___ General Patient Visit ___ Spiritual Assessment ___ Family Conference ___ Bereavement ___ Rapid Response ___ Code Blue ___ Other (describe below) Pastoral Care Referral From _x__ Patient ___ Family _x__ Nurse ___ Physician _x__ Impregnator And Drier ___ Society Editor ___ Other (describe below) Sacrament/Intervention _x__ Active listening ___ Anointing ___ Sabianist ___ Bereavement ___ Communion _x__ Kathie exploration ___ _x__ Life review _x__ Prayer ___ Reconciliation ___ Sacrament of Sick _x__ Supportive presence ___ Wedding ___ Other (describe below) Pastoral Comments patient was expecting visit after several staff offered it from this contact lens flashing puncher; pt gives some health history and current status of his cancer and debility; pt speaks of how he has come to 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
[2021-12-29] MEDS: Acetaminophen 500 MG Tablet 1000 MG PO ×2 (04:07→17:22)
[2021-12-29] MEDS: Benzonatate 100 MG Capsule PO ×3 (06:20→17:23)
[2021-12-29] MEDS: Senna/Docusate Sodium 1 Tablet PO ×2 (06:20→17:23)
[2021-12-29] MEDS: Enoxaparin 40 MG/0.4 ML Syringe SC (06:20)
[2021-12-29] MEDS: Lisinopril 10 MG Tablet PO (06:20)
[2021-12-29] MEDS: TIOTROPIUM BR INHALATION (06:20)
[2021-12-29] MEDS: guaiFENesin 1,200 MG Tablet 1200 MG PO ×2 (06:20→17:23)
[2021-12-29] MEDS: OLODATEROL HCL INHALATION (06:20)
[2021-12-29] MEDS: Menthol/Lanolin/Calamine/Znox 113 GM Tube 1 APPLIC TOPICAL ×2 (06:25→17:23)
[2021-12-29] MEDS: dexAMETHasone 2 MG TABLET PO (07:55)
[2021-12-29] MEDS: Gabapentin 100 MG Capsule PO ×3 (07:55→17:23)
[2021-12-29 14:00] VITALS: BP 113/72; PULSE 95; RESP 16; TEMP 36.4; O2SAT 93
[2021-12-30] MEDS: OLODATEROL HCL INHALATION (06:00)
[2021-12-30] MEDS: Menthol/Lanolin/Calamine/Znox 113 GM Tube 1 APPLIC TOPICAL ×2 (06:00→18:00)
[2021-12-30] MEDS: Benzonatate 100 MG Capsule PO ×3 (06:00→18:00)
[2021-12-30] MEDS: Lisinopril 10 MG Tablet PO (06:00)
[2021-12-30] MEDS: guaiFENesin 1,200 MG Tablet 1200 MG PO ×2 (06:00→18:00)
[2021-12-30] MEDS: Senna/Docusate Sodium 1 Tablet PO ×2 (06:00→18:00)
[2021-12-30] MEDS: Enoxaparin 40 MG/0.4 ML Syringe SC (06:00)
[2021-12-30] MEDS: Polyethylene Glycol 3350 17 GM PACKET PO (06:00)
[2021-12-30] MEDS: TIOTROPIUM BR INHALATION (06:00)
[2021-12-30] MEDS: Gabapentin 100 MG Capsule PO ×3 (08:00→17:45)
[2021-12-30] MEDS: dexAMETHasone 2 MG TABLET PO (08:00)
[2021-12-31] MEDS: Polyethylene Glycol 3350 17 GM PACKET PO (04:49)
[2021-12-31] MEDS: Enoxaparin 40 MG/0.4 ML Syringe SC (04:50)
[2021-12-31] MEDS: Senna/Docusate Sodium 1 Tablet PO ×2 (04:50→16:46)
[2021-12-31] MEDS: guaiFENesin 1,200 MG Tablet 1200 MG PO ×2 (04:50→16:46)
[2021-12-31] MEDS: Benzonatate 100 MG Capsule PO ×3 (04:50→16:46)
[2021-12-31] MEDS: Lisinopril 10 MG Tablet PO (04:51)
[2021-12-31] MEDS: Acetaminophen 500 MG Tablet 1000 MG PO ×2 (04:54→22:25)
[2021-12-31] MEDS: OLODATEROL HCL INHALATION (04:58)
[2021-12-31] MEDS: TIOTROPIUM BR INHALATION (04:58)
[2021-12-31] MEDS: Menthol/Lanolin/Calamine/Znox 113 GM Tube 1 APPLIC TOPICAL ×2 (04:59→16:46)
[2021-12-31] MEDS: Gabapentin 100 MG Capsule PO ×3 (08:19→16:46)
[2021-12-31] MEDS: dexAMETHasone 2 MG TABLET PO (08:20)
[2021-12-31] MEDS: Bisacodyl 5 MG Tablet 10 MG PO (09:33)
--- NOTE | 2021-12-31 09:49 | NURSING ---
Notified Dr. Johnson of pt c/o constipation and requesting a suppository. Received order for Dulcolax suppository.
[2021-12-31] MEDS: Bisacodyl 10 MG Suppository RC (10:40)
[2021-12-31 13:28] VITALS: BP 130/61; PULSE 84; RESP 18; TEMP 36.6; O2SAT 96
[2022-01-01] MEDS: Polyethylene Glycol 3350 17 GM PACKET PO (05:54)
[2022-01-01] MEDS: Bisacodyl 5 MG Tablet 10 MG PO (05:54)
[2022-01-01] MEDS: Acetaminophen 500 MG Tablet 1000 MG PO ×3 (05:54→22:12)
[2022-01-01] MEDS: Enoxaparin 40 MG/0.4 ML Syringe SC (05:54)
[2022-01-01] MEDS: Lisinopril 10 MG Tablet PO (05:56)
[2022-01-01] MEDS: Benzonatate 100 MG Capsule PO ×3 (05:56→18:25)
[2022-01-01] MEDS: Senna/Docusate Sodium 1 Tablet PO ×2 (05:56→18:24)
[2022-01-01] MEDS: guaiFENesin 1,200 MG Tablet 1200 MG PO ×2 (05:57→18:24)
[2022-01-01] MEDS: OLODATEROL HCL INHALATION (05:57)
[2022-01-01] MEDS: TIOTROPIUM BR INHALATION (05:57)
[2022-01-01] MEDS: Menthol/Lanolin/Calamine/Znox 113 GM Tube 1 APPLIC TOPICAL ×2 (05:58→18:24)
[2022-01-01] MEDS: Gabapentin 100 MG Capsule PO ×3 (08:32→18:23)
[2022-01-01] MEDS: dexAMETHasone 2 MG TABLET PO (08:33)
[2022-01-01 08:44] VITALS: BP 113/72; PULSE 92; RESP 18; TEMP 36.1; O2SAT 95
--- NOTE | 2022-01-01 08:47 | NURSING ---
THIS NURSE WALKED INTO ROOM AND SEEN PT SHAKING. ASKED PT WHAT WAS WRONG PT STATED HE STARTED A FEW DAYS AGO BUT IT GOT WORSE OVER NIGHT AND COULDN'T REST. PT STATED IF I MOVE IT WILL STOP FOR A SHORT TIME THEN START BACK UP AGAIN. VITALS DONE,RN AWARE
--- NOTE | 2022-01-01 08:59 | NURSING ---
assisted pt to WC then to xray for abd
--- NOTE | 2022-01-01 09:03 | RAD_ITS ---
STUDY: X-RAY - ABDOMEN/PELVIS REASON FOR EXAM: Male, 66 years old. Constipation TECHNIQUE: Single AP view of the abdomen / pelvis. COMPARISON: None. FINDINGS: Normal visualized lung bases. There is an abundance of fecal material throughout the colon. The visualized liver, spleen and kidneys are grossly normal in size and morphology. Normal soft tissue structures. There are diffuse degenerative changes of the visualized lumbar spine. RAD/Abdomen Single View IMPRESSION: Large amount of fecal material is seen in the colon. Electronically Signed: Zach Lewis MD at 10:15 EST ,
--- NOTE | 2022-01-01 10:34 | NURSING ---
dr valencia updated on abd xray, new order for SSE
[2022-01-01 10:50] VITALS: PULSE 88; RESP 18; O2SAT 94
--- NOTE | 2022-01-01 11:50 | NURSING ---
Addendum entered by Dian Bennett 01/01/22 14:21: no results, Dr Johnson updated, new order for mag citrate. Original Note: SOAP SUDS ENEMA GIVEN PER ORDER. NO RESULTS YET. WILL CONTINUE TO MONITOR
[2022-01-01 13:02] VITALS: BP 113/72; PULSE 92; RESP 17; TEMP 36.1; O2SAT 95
[2022-01-01] MEDS: Magnesium Citrate 300 ML PO (15:00)
[2022-01-02] MEDS: guaiFENesin 1,200 MG Tablet 1200 MG PO ×2 (05:17→16:55)
[2022-01-02] MEDS: Polyethylene Glycol 3350 17 GM PACKET PO (05:17)
[2022-01-02] MEDS: Senna/Docusate Sodium 1 Tablet PO ×2 (05:17→16:55)
[2022-01-02] MEDS: Benzonatate 100 MG Capsule PO ×3 (05:17→16:56)
[2022-01-02] MEDS: Enoxaparin 40 MG/0.4 ML Syringe SC (05:17)
[2022-01-02] MEDS: Menthol/Lanolin/Calamine/Znox 113 GM Tube 1 APPLIC TOPICAL ×2 (05:17→16:56)
[2022-01-02] MEDS: OLODATEROL HCL INHALATION (05:18)
[2022-01-02] MEDS: TIOTROPIUM BR INHALATION (05:18)
[2022-01-02] MEDS: Lisinopril 10 MG Tablet PO (05:18)
[2022-01-02] MEDS: Acetaminophen 500 MG Tablet 1000 MG PO ×2 (05:20→16:57)
[2022-01-02 05:56] LABS: Absolute Lymphocyte Count 1.27 X10^3/uL (0.83-4.51); Absolute Neutrophil Count 4.8 X10^3/uL (2.0-7.7); Basophil# 0.04 X10^3/uL; Basophil% 0.6 % (0-1); Eosinophil# 0.06 X10^3/uL; Eosinophils% 0.8 % (0-5); Hematocrit 40.6 % (40-54); Hemoglobin 14.1 g/dL (13.0-16.5); Lymphocyte # 1.27 X10^3/ul (0.83-4.51); Lymphocyte % 17.7 % (19-41); Mean Corp Hgb Conc 34.7 g/dL (32-36); Mean Corpuscular Hgb 31.8 pg (27.0-32.0); Mean Corpuscular Volume 91.6 fL (80-94); Mean Platelet Vol. 8.8 fl (6.2-12.0); Monocyte# 0.77 X10^3/uL; Monocyte% 10.7 % (0-10); NRBC Flagged by Analyzer 0 % (0-5); Neutrophil % 66.7 % (47-70); Platelet Count 260 K/mm3 (150-450); RBC Distribution Width CV 13.7 % (11.6-14.6); RBC Distribution Width SD 46.4 fl (35.1-43.9); Red Blood Count 4.43 M/mm3 (4.6-6.2); White Blood Count 7.2 K/mm3 (4.4-11.0)
[2022-01-02 06:36] LABS: Anion Gap 5 (5-15); BUN 19 mg/dL (7-18); BUN/Creat Ratio 27.8 RATIO (10-20); Calcium,Total 8.8 mg/dL (8.5-10.1); Chloride 102 mmol/L (98-107); Creatinine, Serum 0.68 mg/dL (0.70-1.30); EST Glomerular Filtration Rate 123 mL/min (>60); Est Glom Filt Rate - Afr Amer 149 mL/min (>60); Estimated Creatinine Clearance 77.39 ml/min; Glucose 92 mg/dL (74-106); Potassium 3.8 mmol/L (3.5-5.1); Sodium Level 137 mmol/L (136-145)
[2022-01-02] MEDS: Gabapentin 100 MG Capsule PO ×3 (08:31→16:55)
[2022-01-02] MEDS: dexAMETHasone 2 MG TABLET PO (08:31)
[2022-01-02] MEDS: Tuberculin,Purif.prot.deriv. 50 TU/ML Vial 0.1 ML ID (12:39)
[2022-01-02 14:23] VITALS: BP 108/76; PULSE 90; RESP 18; TEMP 36.6; O2SAT 96
--- NOTE | 2022-01-02 15:50 | NURSING ---
Resident and spouse, Dian, notifie [facility] staff member testing positive for COVID.
[2022-01-02 19:57] VITALS: PULSE 84; RESP 16; O2SAT 97
[2022-01-03] MEDS: Senna/Docusate Sodium 1 Tablet PO ×2 (05:33→16:40)
[2022-01-03] MEDS: Lisinopril 10 MG Tablet PO (05:33)
[2022-01-03] MEDS: guaiFENesin 1,200 MG Tablet 1200 MG PO ×2 (05:33→16:40)
[2022-01-03] MEDS: Benzonatate 100 MG Capsule PO ×3 (05:33→16:40)
[2022-01-03] MEDS: OLODATEROL HCL INHALATION (05:34)
[2022-01-03] MEDS: Acetaminophen 500 MG Tablet 1000 MG PO (05:34)
[2022-01-03] MEDS: Polyethylene Glycol 3350 17 GM PACKET PO (05:34)
[2022-01-03] MEDS: TIOTROPIUM BR INHALATION (05:34)
[2022-01-03] MEDS: Enoxaparin 40 MG/0.4 ML Syringe SC (05:34)
[2022-01-03] MEDS: Menthol/Lanolin/Calamine/Znox 113 GM Tube 1 APPLIC TOPICAL ×2 (05:39→16:41)
[2022-01-03 05:40] VITALS: BP 122/79; PULSE 81
[2022-01-03] MEDS: dexAMETHasone 2 MG TABLET PO (07:59)
[2022-01-03] MEDS: Gabapentin 100 MG Capsule PO ×3 (07:59→16:39)
[2022-01-03] MEDS: Baclofen 10 MG Tablet 5 MG PO ×3 (08:53→20:41)
--- NOTE | 2022-01-03 11:04 | CASEMGMT ---
Social Work IDT met with patient and for care plan meeting. Discussed patient's progress in PT/OT and nursing. Pt progressing well. Explained Medicare benefit. Encouraged to contact secondary insurance to ensure copay coverage. to schedule therapy family training to see how pt is doing and when they feel pt can return home. Provided nonskilled [facility] list for additional assistance at home. Offered to order continued therapy and DME at [facility]. SW to continue to follow. Jaimie Chung MSW CELL MANAGER
--- NOTE | 2022-01-03 11:44 | NURSING ---
Pt c/o pain and muscle spasms but is afraid to take any opioid medications d/c unpleasant side effects and struggling with consitpation. Dr. Johnson updated and N.O. baclofen 5mg PO TID. in this evening and brought in a bag of supplements to help facilitate bowel movements, this nurse explained that we would have to discuss the medications with the doctor and get an order before he would be able to use it. Message left for doctor Alex with list of medications for review.
[2022-01-03 12:52] VITALS: BP 98/63; PULSE 80; RESP 17; TEMP 36.1; O2SAT 95
[2022-01-04] MEDS: Lisinopril 10 MG Tablet PO (05:38)
[2022-01-04] MEDS: Enoxaparin 40 MG/0.4 ML Syringe SC (05:38)
[2022-01-04] MEDS: guaiFENesin 1,200 MG Tablet 1200 MG PO ×2 (05:38→16:56)
[2022-01-04] MEDS: Benzonatate 100 MG Capsule PO ×3 (05:38→16:55)
[2022-01-04] MEDS: Baclofen 10 MG Tablet 5 MG PO (05:38)
[2022-01-04] MEDS: Senna/Docusate Sodium 1 Tablet PO ×2 (05:38→16:55)
[2022-01-04] MEDS: Polyethylene Glycol 3350 17 GM PACKET PO (05:38)
[2022-01-04] MEDS: TIOTROPIUM BR INHALATION (05:43)
[2022-01-04] MEDS: OLODATEROL HCL INHALATION (05:43)
[2022-01-04] MEDS: Menthol/Lanolin/Calamine/Znox 113 GM Tube 1 APPLIC TOPICAL ×2 (05:48→17:03)
[2022-01-04 05:49] VITALS: BP 131/84; PULSE 78
[2022-01-04] MEDS: dexAMETHasone 2 MG TABLET PO (08:06)
[2022-01-04] MEDS: Gabapentin 100 MG Capsule PO ×3 (08:07→16:56)
--- NOTE | 2022-01-04 10:23 | MDS.RN ---
Information for the mds was obtained from review of the clinical record, interview of resident, staff, and direct observation of resident's care. Information systems, billing dept, and [facility] aware PDPM codes not generating on finalized mds assessments.
[2022-01-04] MEDS: Acetaminophen 500 MG Tablet 1000 MG PO ×2 (10:41→16:54)
--- NOTE | 2022-01-04 13:38 | NURSING ---
Resident and , Dian notified of a resident on the unit testing positive for COVID on the unit.
[2022-01-04 14:29] VITALS: BP 125/82; PULSE 89; RESP 16; TEMP 37.4; O2SAT 95
[2022-01-05] MEDS: Menthol/Lanolin/Calamine/Znox 113 GM Tube 1 APPLIC TOPICAL ×2 (05:10→18:20)
[2022-01-05] MEDS: Enoxaparin 40 MG/0.4 ML Syringe SC (05:11)
[2022-01-05] MEDS: Polyethylene Glycol 3350 17 GM PACKET PO (05:11)
[2022-01-05] MEDS: Lisinopril 10 MG Tablet PO (05:14)
[2022-01-05] MEDS: OLODATEROL HCL INHALATION (05:14)
[2022-01-05] MEDS: Benzonatate 100 MG Capsule PO ×3 (05:14→18:50)
[2022-01-05] MEDS: TIOTROPIUM BR INHALATION (05:14)
[2022-01-05] MEDS: Senna/Docusate Sodium 1 Tablet PO ×2 (05:14→18:50)
[2022-01-05] MEDS: Acetaminophen 500 MG Tablet 1000 MG PO (05:18)
[2022-01-05] MEDS: Baclofen 10 MG Tablet 5 MG PO ×2 (05:19→18:28)
[2022-01-05] MEDS: dexAMETHasone 2 MG TABLET PO (07:42)
[2022-01-05 09:15] VITALS: PULSE 98; RESP 18; O2SAT 94
[2022-01-05] MEDS: Glycerin/Hypromellose/PEG400 15 ml Bottle 2 DRP EACH EYE (09:27)
[2022-01-05 14:45] VITALS: BP 110/65; PULSE 90; RESP 17; TEMP 36.8; O2SAT 96
[2022-01-06] MEDS: Enoxaparin 40 MG/0.4 ML Syringe SC (04:48)
[2022-01-06] MEDS: Benzonatate 100 MG Capsule PO ×3 (04:49→18:02)
[2022-01-06] MEDS: Senna/Docusate Sodium 1 Tablet PO ×2 (04:49→17:06)
[2022-01-06] MEDS: Lisinopril 10 MG Tablet PO (04:49)
[2022-01-06] MEDS: Polyethylene Glycol 3350 17 GM PACKET PO (04:50)
[2022-01-06] MEDS: TIOTROPIUM BR INHALATION (04:53)
[2022-01-06] MEDS: OLODATEROL HCL INHALATION (04:53)
[2022-01-06] MEDS: Menthol/Lanolin/Calamine/Znox 113 GM Tube 1 APPLIC TOPICAL ×2 (05:02→18:03)
[2022-01-06] MEDS: Acetaminophen 500 MG Tablet 1000 MG PO ×3 (08:07→22:06)
[2022-01-06] MEDS: Glycerin/Hypromellose/PEG400 15 ml Bottle 2 DRP EACH EYE (13:01)
[2022-01-06 16:00] VITALS: BP 123/76; PULSE 78; RESP 16; TEMP 36.1; O2SAT 96
[2022-01-06] MEDS: Baclofen 10 MG Tablet 5 MG PO ×2 (17:11→22:06)
[2022-01-07] MEDS: Enoxaparin 40 MG/0.4 ML Syringe SC (06:00)
[2022-01-07] MEDS: Lisinopril 10 MG Tablet PO (06:01)
[2022-01-07] MEDS: Polyethylene Glycol 3350 17 GM PACKET PO (06:02)
[2022-01-07] MEDS: Benzonatate 100 MG Capsule PO ×3 (06:02→17:09)
[2022-01-07] MEDS: Menthol/Lanolin/Calamine/Znox 113 GM Tube 1 APPLIC TOPICAL ×2 (06:03→17:10)
[2022-01-07] MEDS: Senna/Docusate Sodium 1 Tablet PO ×2 (06:04→17:09)
[2022-01-07] MEDS: OLODATEROL HCL INHALATION (06:05)
[2022-01-07] MEDS: TIOTROPIUM BR INHALATION (06:05)
[2022-01-07] MEDS: Baclofen 10 MG Tablet 5 MG PO (06:11)
--- NOTE | 2022-01-07 06:16 | NURSING ---
Addendum entered by Ayah Leiva 01/07/22 07:52: Pt notes that spouse is to visit today and she may want some of the home remedy doses adjusted. Encouraged pt to have spouse speak w/ nursing staff to address. Original Note: Questioned which bowel medications pt would like this am. Repeatedly states, I don't know and becomes increasingly irritable. Held home remedies as per JAN. Administered Senna and Miralax. Pt requests Papaya be held and noted on JAN. Administered Baclofen for muscle spasms to RLE.
[2022-01-07] MEDS: Acetaminophen 500 MG Tablet 1000 MG PO (08:05)
[2022-01-07 09:50] VITALS: PULSE 89; RESP 18; O2SAT 96
[2022-01-07] MEDS: Glycerin/Hypromellose/PEG400 15 ml Bottle 2 DRP EACH EYE (14:19)
--- NOTE | 2022-01-07 23:54 | NURSING ---
Patient c/o of buttock pain. While RN and this nurse were assisting patient to bed, open shearing areas noted. Sacrum Mepilex placed.
[2022-01-08] MEDS: Lisinopril 10 MG Tablet PO (05:15)
[2022-01-08] MEDS: Polyethylene Glycol 3350 17 GM PACKET PO (05:15)
[2022-01-08] MEDS: Senna/Docusate Sodium 1 Tablet PO ×2 (05:15→17:34)
[2022-01-08] MEDS: Benzonatate 100 MG Capsule PO ×3 (05:15→17:34)
[2022-01-08] MEDS: Enoxaparin 40 MG/0.4 ML Syringe SC (05:15)
[2022-01-08] MEDS: OLODATEROL HCL INHALATION (05:17)
[2022-01-08] MEDS: TIOTROPIUM BR INHALATION (05:17)
[2022-01-08] MEDS: Menthol/Lanolin/Calamine/Znox 113 GM Tube 1 APPLIC TOPICAL ×2 (05:25→17:34)
--- NOTE | 2022-01-08 05:26 | NURSING ---
Patient requesting alternative at HS for urination. Patient reports at night its harder to move his left arm. Explained the male purewick to patient and he would like to try it. Message left for Dr. Johnson. Patient also struggling moving his bed. Hi/lo bed available in room 11. Will ask dayshift if when patient is up, if they can switch beds out.
[2022-01-08 05:34] VITALS: BP 116/65; PULSE 83
[2022-01-08] MEDS: Acetaminophen 500 MG Tablet 1000 MG PO ×2 (08:05→18:45)
[2022-01-08 14:59] VITALS: BP 111/69; PULSE 94; RESP 18; TEMP 36.1; O2SAT 97
[2022-01-08] MEDS: Glycerin/Hypromellose/PEG400 15 ml Bottle 2 DRP EACH EYE (15:43)
[2022-01-08 20:02] VITALS: PULSE 101; RESP 16; O2SAT 95
--- NOTE | 2022-01-08 20:33 | NURSING ---
Patient bladder scanned d/t hesitancy. Patient has been voiding 200-300 each time. Scan read greater than 999mL. Dr. Johnson updated. New orders to insert guthrie, start Flomax 0.4 mg qd, first dose now. Start voiding trials on Saturday (01/12/2022.)
--- NOTE | 2022-01-08 21:00 | NURSING ---
Dian called and updated with new orders. very thankful.
[2022-01-08] MEDS: Tamsulosin HCl 0.4 MG Capsule PO (21:05)
[2022-01-08] MEDS: MELATONIN 3 MG TABLET PO (22:33)
[2022-01-08] MEDS: Baclofen 10 MG Tablet 5 MG PO (22:33)
[2022-01-08] MEDS: oxyCODONE 5 MG Tablet PO (22:40)
[2022-01-09 05:23] LABS: Absolute Lymphocyte Count 1.02 X10^3/uL (0.83-4.51); Absolute Neutrophil Count 6.5 X10^3/uL (2.0-7.7); Basophil# 0.02 X10^3/uL; Basophil% 0.2 % (0-1); Eosinophil# 0.04 X10^3/uL; Eosinophils% 0.5 % (0-5); Hematocrit 38.7 % (40-54); Lymphocyte # 1.02 X10^3/ul (0.83-4.51); Lymphocyte % 11.8 % (19-41); Mean Corp Hgb Conc 36.2 g/dL (32-36); Mean Corpuscular Hgb 32.6 pg (27.0-32.0); Mean Platelet Vol. 8.6 fl (6.2-12.0); Monocyte# 0.94 X10^3/uL; Monocyte% 10.9 % (0-10); NRBC Flagged by Analyzer 0 % (0-5); Neutrophil # 6.51 X10^3/uL (2.7-7.7); Neutrophil % 75.2 % (47-70); Platelet Count 207 K/mm3 (150-450); RBC Distribution Width CV 13.3 % (11.6-14.6); RBC Distribution Width SD 43.8 fl (35.1-43.9); White Blood Count 8.7 K/mm3 (4.4-11.0)
[2022-01-09 05:48] LABS: Anion Gap 5 (5-15); BUN 19 mg/dL (7-18); BUN/Creat Ratio 28.2 RATIO (10-20); Chloride 101 mmol/L (98-107); Creatinine, Serum 0.67 mg/dL (0.70-1.30); EST Glomerular Filtration Rate 125 mL/min (>60); Est Glom Filt Rate - Afr Amer 152 mL/min (>60); Estimated Creatinine Clearance 77.39 ml/min; Glucose 95 mg/dL (74-106); Potassium 3.9 mmol/L (3.5-5.1); Sodium Level 135 mmol/L (136-145)
[2022-01-09] MEDS: Enoxaparin 40 MG/0.4 ML Syringe SC (06:04)
[2022-01-09] MEDS: Polyethylene Glycol 3350 17 GM PACKET PO (06:04)
[2022-01-09] MEDS: Lisinopril 10 MG Tablet PO (06:04)
[2022-01-09] MEDS: Benzonatate 100 MG Capsule PO ×3 (06:04→17:55)
[2022-01-09] MEDS: Senna/Docusate Sodium 1 Tablet PO ×2 (06:04→17:56)
[2022-01-09] MEDS: OLODATEROL HCL INHALATION (06:05)
[2022-01-09] MEDS: TIOTROPIUM BR INHALATION (06:05)
--- NOTE | 2022-01-09 06:48 | NURSING ---
Cream colored, thick drainage noted to be coming from tip of penis and dime size amount noted to be on scrotum. Patient denies any burning or pain at this time. States I actually slept the best I have in a year. Cleaned area with soap and water. Pat dry. Placed 4x4 between penis and scrotum incase any more drainage. Message left for Dr. Johnson.
[2022-01-09 09:45] VITALS: PULSE 91; RESP 18; O2SAT 95
[2022-01-09] MEDS: Glycerin/Hypromellose/PEG400 15 ml Bottle 2 DRP EACH EYE (09:56)
[2022-01-09 13:27] VITALS: BP 101/65; PULSE 87; RESP 18; TEMP 35.8; O2SAT 96
--- NOTE | 2022-01-09 13:51 | CASEMGMT ---
Social Work IDT requesting initiation of hospice consult. Contacted and explained home with hospice recommendation. agreeable and has seen pt's sudden decline as now he is a total feed. agreeable with DC as soon as possible. Inquired about hospice agency preference and read hospice list via phone. [facility]. agreeable. in to visit pt and meet with hospice rep at 10 am. Referral made to [facility]. Their office is referring to sister [facility] to better serve pt's area. They are sending rep to meet with pt and at 10 am. Explained pt will need hospital bed, BSC and w/c in the home. Once nurse can open and DME can be delivered, pt can DC home. present. Met with and updated on company and DME plan. also requesting [facility]. Updated hospice. Met with [facility] rep, Nichole, whom discussed with pt/family that DME will be delivered this evening to home and pt can DC home to meet nurse to open 01/10 at 10 am. Updated IDT. Scheduled cot transport through [facility] at 10 am. Plan: DC home with 01/10 with [facility] FRENCH Aguilar
[2022-01-09] MEDS: Acetaminophen 500 MG Tablet 1000 MG PO (15:30)
[2022-01-09] MEDS: Tamsulosin HCl 0.4 MG Capsule PO (17:58)
--- NOTE | 2022-01-09 19:28 | PCM.DC.SUM ---
Providers Date of Admission: 12/25/21 Primary Care Physician: Dr. Des Che MD Consultations 12/26/21 13:13 Consult: Hospice / Palliative Care Routine Consulting Provider: [facility] Reason for Consult: Palliative - cancer, pain, decline in ADLs EMERGENT Consult: Yes MD Notified: Yes Date Notified: 12/26/21 Time Notified: 13:13 Method of Notification: Provider Initiated Reason For Visit: GENERALIZED WEAKNESS/FALL Diagnosis Discharge Diagnosis (1) Debility: Status: Acute Code(s): R53.81 - Other malaise (2) Weakness: Status: Acute Code(s): R53.1 - Weakness (3) Shortness of breath: Status: Acute Code(s): R06.02 - Shortness of breath (4) Right cervical radiculopathy: Status: Acute Code(s): M54.12 - Radiculopathy, cervical region (5) NSCLC of left lung: Status: Acute Code(s): C34.92 - Malignant neoplasm of unspecified part of left bronchus or lung (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: Status: Acute Code(s): C72.0 - Malignant neoplasm of spinal cord (7) Former smoker: Status: Acute Code(s): Z87.891 - Personal history of nicotine dependence Medications at Discharge Home Medications lisinopril 10 mg PO DAILY 03/13/21 melatonin 3 mg PO QHS PRN PRN #0 tab 12/25/21 Herb Lax 2 tab PO/SL BID 01/03/22 Ortho Biotic 2 cap PO/SL QHS 01/03/22 Plant Mineral 2 tbsp PO/SL BID 01/03/22 Strengtia Probiotics 1 cap PO/SL DAILY 01/03/22 carica papaya [Papaya Enzyme] 2 tab PO TID 01/03/22 acetaminophen 1,000 mg PO Q6H PRN PRN #0 tab 01/09/22 baclofen 5 mg PO TID PRN 30 Days #90 tab 01/09/22 benzonatate 100 mg PO Q6 30 Days #120 cap 01/09/22 tamsulosin 0.4 mg PO DAILY@1730 30 Days #30 cap 01/09/22 Hospital Course Operations None Procedures None Summary of Care Provided Minutes Spent on Discharge: 35 Hospital Course: 66 year old male with below past medical history significant for 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 Right hemiparesis worsened, spinal cord tumor compression. Resident dying. 01/08/2022 Resident had urinary retention, indwelling guthrie catheter placed, Tamsulosin 0.4mg daily started. Discharge home with 01/10/2022, [facility]. Physical Exam Const alert and oriented x3 General Appearance: cooperative HEENT normocephalic Eyes PERRL and EOMs intact bilaterally Neck supple, no JVD and no carotid bruits Resp normal respiratory effort, normal air movement and clear to auscultation bilaterally Cardio regular rate and regular rhythm GI normal to inspection, nondistended, normoactive bowel sounds, non-tender and non-distended Extremity normal capillary refill General Extremity: Negative for edema Skin no rashes or lesions noted General Skin Exam: no breakdown Psych affect normal Appearance: appropriate Weight / BMI Weight Weight: 96.388 kg Body Mass Index (BMI) 29.9 ABG / Lab / Microbiology Data Result Diagrams: 01/09/22 05:13 01/09/22 05:13 Laboratory: Laboratory Results - last 24 hr 01/09/22 05:13: WBC 8.7, RBC 4.30 L, Hgb 14.0, Hct 38.7 L, MCV 90.0, MCH 32.6 H, MCHC 36.2 H, RDW Std Deviation 43.8, RDW Coeff of Samantha 13.3, Plt Count 207, MPV 8.6, Immature Gran % (Auto) 1.400 H, Neut % (Auto) 75.2 H, Lymph % (Auto) 11.8 L, Tensas % (Auto) 10.9 H, Eos % (Auto) 0.5, Baso % (Auto) 0.2, Absolute Neuts (auto) 6.5, Absolute Lymphs (auto) 1.02, Nucleated RBC % 0 01/09/22 05:13: Sodium 135 L, Potassium 3.9, Chloride 101, Carbon Dioxide 29.0, Anion Gap 5, BUN 19 H, Creatinine 0.67 L, Estim Creat Clear Calc 77.39, Est GFR (MDRD) Af Amer 152, Est GFR (MDRD) Non-Af 125, BUN/Creatinine Ratio 28.2 H, Glucose 95, Calcium 9.0 Microbiology: Microbiology 01/09/22 10:03 Fluid - Other Gram Stain - Final 01/04/22 11:52 Nasal Secretion SARS-CoV-2 Antigen (Rapid) - Final 12/28/21 13:55 Nasal Secretion SARS-CoV-2 Antigen (Rapid) - Final D/C Instructions Discharge Diet: No restrictions Discharge Activity: Return to Normal Activity, May Shower and Use Walker May resume sexual activity in: No Restrictions Weight Bearing Status: Weight bearing as tolerated Call your doctor if you observe: Fever of 101 or Higher, Inability to urinate, Inability to have a bowel movement, Shortness of breath, Dizziness, Fainting spells, Swelling in the ankles, Chest pain and Uncontrolled pain Additional Instructions: Discharge home with 01/10/2022, [facility]. Please Follow Up With: Prudencio Sandoval MD When: N/A. Meaningful Use Info Meaningful Use Diagnoses (Choose all that apply): None applicable Discharge Plan Admission Admit Date/Time: 12/25/21 14:56 Primary Reason for Your Visit: Debility. Attending Provider: Gabe Johnson Chi Primary Care Provider: Des Che Consulting Providers: Mary Loevll ; Kee Yates ; Karla Cuevas ; Debi Villanueva ; Mayte Cruz ; Sanam Kramer ASSISTANT MERCHANDISE MANAGER Instructions Additional Instructions / Restrictions: Discharge home with 01/10/2022, [facility]. Discharge Orders/Prescriptions Prescriptions: New acetaminophen 500 mg Tablet 1,000 mg PO Q6H PRN PRN (Reason: Pain Score 1-5) Qty: 0 RF: 0 tamsulosin 0.4 mg Capsule 0.4 mg PO DAILY@1730 30 Days Qty: 30 RF: 0 baclofen 10 mg Tablet 5 mg PO TID PRN (Reason: Muscle Spasm) 30 Days Qty: 90 RF: 0 benzonatate 100 mg Capsule 100 mg PO Q6 30 Days Qty: 120 RF: 0 Continued lisinopril 20 MG tablet 10 mg PO DAILY RF: 0 melatonin 3 mg Tablet 3 mg PO QHS PRN PRN (Reason: Insomnia) Qty: 0 RF: 0 Plant Mineral 2 tbsp PO/SL BID RF: 0 Ortho Biotic 133 mg 2 cap PO/SL QHS RF: 0 carica papaya [Papaya Enzyme] Tablet 2 tab PO TID RF: 0 Strengtia Probiotics 1 cap PO/SL DAILY RF: 0 Herb Lax 2 tab PO/SL BID RF: 0 Discontinued albuterol sulfate [ProAir HFA] 90 mcg/actuation HFA aerosol inhaler 1 - 2 puff inhalation Q6H PRN (Reason: shortness of breath or wheezing) Qty: 8.5 RF: 1 sennosides [Shasta-kayla] 8.6 mg Tablet 1 tab PO BID PRN (Reason: constipation) Qty: 0 RF: 0 acetaminophen [Tylenol] 325 mg Tablet 650 mg PO Q6H PRN PRN (Reason: Pain Score 1-10/Temp > 100.7 F) Qty: 0 RF: 0 albuterol sulfate 2.5 mg /3 mL (0.083 %) Solution For Nebulization 2.5 mg inhalation Q2H PRN PRN (Reason: Shortness of Breath/Wheezing) Qty: 0 RF: 0 benzonatate 100 mg capsule 100 mg PO Q6 RF: 0 dexamethasone 2 mg tablet 2 mg PO BREAKFAST RF: 0 gabapentin 100 mg capsule 100 mg PO TIDCM RF: 0 Mucus Relief ER 1,200 mg tablet extended release 12hr 1,200 mg PO BID RF: 0 Stiolto Respimat 2.5-2.5 mcg/actuation mist 2 inh INHALATION DAILY RF: 0 Referrals / Follow Up: Des Che MD [Primary Care Provider] - Disposition Disposition (needs filled in before D/C Order can be placed): Hospice in Home
[2022-01-09] MEDS: oxyCODONE 5 MG Tablet PO (23:21)
[2022-01-09] MEDS: MELATONIN 3 MG TABLET PO (23:21)
[2022-01-10] MEDS: Menthol/Lanolin/Calamine/Znox 113 GM Tube 1 APPLIC TOPICAL ×2 (06:13)
[2022-01-10] MEDS: Acetaminophen 500 MG Tablet 1000 MG PO (06:13)
[2022-01-10] MEDS: OLODATEROL HCL INHALATION (06:14)
[2022-01-10] MEDS: TIOTROPIUM BR INHALATION (06:14)
[2022-01-10] MEDS: Benzonatate 100 MG Capsule PO (06:15)
[2022-01-10] MEDS: Enoxaparin 40 MG/0.4 ML Syringe SC (06:16)
[2022-01-10] MEDS: Polyethylene Glycol 3350 17 GM PACKET PO (06:16)
[2022-01-10] MEDS: Senna/Docusate Sodium 1 Tablet PO (06:17)
[2022-01-10] MEDS: Lisinopril 10 MG Tablet PO (06:18)
[2022-01-10 06:25] VITALS: PULSE 70; O2SAT 92
--- NOTE | 2022-01-10 07:41 | NURSING ---
Clarified with Dr. Johnson this morning about voiding trials and guthrie catheter d/t pt being discharged today, per Dr. Johnson pt to d/c with guthrie catheter.
[2022-01-10 08:54] VITALS: BP 101/58; PULSE 94; RESP 16; TEMP 36.5; O2SAT 97
== END 2022-01-10 10:30 | disposition hospice, home (50) | DRG 181 ==
PROVIDERS: Admitting Provider Family Medicine Geriatric Medicine; PCP Family Medicine; Visit Provider Family Medicine Geriatric Medicine
DX: C34.92 Malignant neoplasm of unspecified part of left bronchus or lung (principal); C79.51 Secondary malignant neoplasm of bone; G81.91 Hemiplegia, unspecified affecting right dominant side; G95.20 Unspecified cord compression; I10 Essential (primary) hypertension; M54.12 Radiculopathy, cervical region; R33.9 Retention of urine, unspecified; Z23 Encounter for immunization; Z87.891 Personal history of nicotine dependence; Z79.899 Other long term (current) drug therapy; Z92.3 Personal history of irradiation
CPT/HCPCS: 36415; 74018; 80048; 85025; 87070; 87075; 87077; 87186; 87205; 87426; 94640; 97110; 97116; 97162; 97166; 97530; 97535; 97802; G0009; 90670; A4216